=== PATIENT | female | born 1955 | race Caucasian/White ===

== ENCOUNTER 2022-06-04 18:33 | Inpatient (IN) | payer BC ==
[2022-06-04] MEDS ORDERED: DEXAMETHASONE SOD PHOSPHATE 10 MG/ML 1 ML VIAL IV STA (18:39)
[2022-06-04] MEDS ORDERED: ALBUTEROL NEBULIZED 2.5 MG/3 ML INHALATION STA (18:39)
[2022-06-04] MEDS ORDERED: IPRATROPIUM 0.5 MG/2.5 ML NEBU INHALATION STA (18:39)
[2022-06-04 18:53] LABS: Basophils # (A) 0.1 k/uL (0-0.2); Basophils % (A) 1 %; Eosinophils # (A) 0.5 k/uL (0-0.7); Eosinophils % (A) 8 %; HCT 31.4 % (34.0-46.0); HGB 10.2 gm/dL (11.4-16.0); Hypochromasia Slight; Lymphocytes # (A) 1.8 k/uL (1.0-4.8); Lymphocytes % (A) 25 %; MCHC 32.4 g/dL (31.0-37.0); MCV 98.6 fL (80.0-100.0); Macrocytosis Slight; Mean Platelet Volume 9.3; Monocytes # (A) 0.6 k/uL (0-1.0); Monocytes % (A) 8 %; Neutrophils # (A) 3.9 k/uL (1.3-7.7); Neutrophils % (A) 56 %; Platelet Count 261 k/uL (150-450); Poikilocytosis Slight; RBC 3.18 m/uL (3.80-5.40); RDW 15.5 % (11.5-15.5)
--- NOTE | 2022-06-04 18:53 | ED ---
General Adult HPI - General Chief complaint: Shortness of Breath Stated complaint: Choking Time Seen by Provider: 06/04/22 18:38 Source: patient Mode of arrival: EMS Limitations: physical limitation - History of Present Illness Initial comments: Dictation was produced using [employer] dictation software. please excuse any grammatical, word or spelling errors. Chief Complaint: 66-year-old female presents with dyspnea History of Present Illness: 66-year-old paraplegic. She is brought in by EMS from [facility]. Patient is a poor historian at this time due to medical history. EMS reports that patient was witnessed to have a perhaps choking episode while eating a hot dog. Patient then proceeded to vomit. She states that she felt like she was able to get everything out. EMS reports the patient was hypoxic as low as 70 percents. She was placed on positive airway ventilation with improvement of oxygen levels. According to EMS there was no nurse or care home staff to 80 in providing history of present illness. The ROS documented in this emergency department record has been reviewed and confirmed by me. Those systems with pertinent positive or negative responses have been documented in the HPI. All other systems are other negative and/or noncontributory. PHYSICAL EXAM: General Impression: Alert and oriented, mildly dyspneic, c-collar in place HEENT: Normocephalic atraumatic, extra-ocular movements intact, pupils equal and reactive to light bilaterally, mucous membranes moist. Cardiovascular: Heart regular rate and rhythm Chest: Mild retractions, diffuse wheezing Abdomen: abdomen soft, non-tender Musculoskeletal: Pulses present and equal in all extremities, contractures to the extremities Motor: No purposeful movements of the extremities Neurological: CN II-XII grossly intact Skin: Intact with no visualized rashes ED course: 66-year-old female presents to the emergency department for acute dyspnea. Patient is diffuse lung wheezing. Chest without adventitious reviewed. Patient allegedly on IV cefepime to treat osteomyelitis of the vertebral. More history was obtained from patient's . reports that 2 months ago she had suffered complications from spine surgery that caused her to be paraplegic. also reports that patient's blood pressure is normally on the low side. He does report being with her around the time of the onset of her breathing issues. He also reports the patient has been seemingly more congested than usual. Vital signs upon arrival shows heart of 110, blood pressure 85/60, 94% on nonrebreather. reports the patient does have extensive pulmonary history including COPD. Patient given breathing treatment and Decadron. Laboratory evaluation obtained. CBC unremarkable. Coag panel is negative. Metabolic panel does show non-gap acidosis. Elevated renal markers. His unclear what's patient's baseline however she did have some labs performed late last month that was not as elevated. There is suspicion of acute kidney injury. Chest x-ray shows no obvious infiltrate. Patient reevaluated at 7:00 and found to be stable medical condition. Considering patient's comorbidities and initial presentation believe patient would and if it from medical monitoring and pulmonology evaluation. - Related Data Allergies Allergy/AdvReac Type Severity Reaction Status Date / Time diazepam [From Valium] Allergy Intermediate Rash/Hives Verified 06/04/22 18:53 morphine Allergy Intermediate Rash/Hives Verified 06/04/22 18:53 phenytoin [From Dilantin] Allergy Intermediate Rash/Hives Verified 06/04/22 18:53 Review of Systems ROS Statement: Those systems with pertinent positive or pertinent negative responses have been documented in the HPI. ROS Other: All systems not noted in ROS Statement are negative. Past Medical History Past Medical History: Coronary Artery Disease (CAD), COPD, CVA/TIA, Diabetes Mellitus, Hypertension, Pulmonary Embolus (PE) Additional Past Medical History / Comment(s): depression. quadriplegia History of Any Multi-Drug Resistant Organisms: None Reported Past Psychological History: Anxiety, Depression Past Alcohol Use History: None Reported Past Drug Use History: None Reported General Exam Limitations: physical limitation Course Vital Signs 06/04/22 06/04/22 18:38 18:40 Temperature 97.5 F L Pulse Rate 110 H 107 H Respiratory 24 Rate Blood Pressure 85/60 O2 Sat by Pulse 94 L Oximetry Medical Decision Making - Lab Data Result diagrams: 06/04/22 18:39 06/04/22 18:30 Lab Results 06/04/22 06/04/22 06/04/22 Range/Units 18:30 18:30 18:30 WBC (3.8-10.6) k/uL RBC (3.80-5.40) m/uL Hgb (11.4-16.0) gm/dL Hct (34.0-46.0) % MCV (80.0-100.0) fL MCH (25.0-35.0) pg MCHC (31.0-37.0) g/dL RDW (11.5-15.5) % Plt Count (150-450) k/uL MPV Neutrophils % % Lymphocytes % % Monocytes % % Eosinophils % % Basophils % % Neutrophils # (1.3-7.7) k/uL Lymphocytes # (1.0-4.8) k/uL Monocytes # (0-1.0) k/uL Eosinophils # (0-0.7) k/uL Basophils # (0-0.2) k/uL Hypochromasia Poikilocytosis Macrocytosis PT 10.2 (9.0-12.0) sec INR 0.9 (<1.2) APTT 22.9 (22.0-30.0) sec Sodium 134 L (137-145) mmol/L Potassium 3.9 (3.5-5.1) mmol/L Chloride 106 (98-107) mmol/L Carbon Dioxide 15 L (22-30) mmol/L Anion Gap 13 mmol/L BUN 96 H (7-17) mg/dL Creatinine 3.28 H (0.52-1.04) mg/dL Est GFR (CKD-EPI)AfAm 16 (>60 ml/min/1.73 sqM) Est GFR (CKD-EPI)NonAf 14 (>60 ml/min/1.73 sqM) Glucose 120 H (74-99) mg/dL Plasma Lactic Acid Dimas <0.5 L (0.7-2.0) mmol/L Calcium 9.1 (8.4-10.2) mg/dL Magnesium 2.2 (1.6-2.3) mg/dL Total Bilirubin 0.9 (0.2-1.3) mg/dL AST 15 (14-36) U/L ALT 14 (4-34) U/L Alkaline Phosphatase 115 (38-126) U/L Troponin I (0.000-0.034) ng/mL NT-Pro-B Natriuret Pep pg/mL Total Protein 6.1 L (6.3-8.2) g/dL Albumin 3.4 L (3.5-5.0) g/dL 06/04/22 06/04/22 06/04/22 Range/Units 18:30 18:30 18:39 WBC 7.0 (3.8-10.6) k/uL RBC 3.18 L (3.80-5.40) m/uL Hgb 10.2 L (11.4-16.0) gm/dL Hct 31.4 L (34.0-46.0) % MCV 98.6 (80.0-100.0) fL MCH 32.0 (25.0-35.0) pg MCHC 32.4 (31.0-37.0) g/dL RDW 15.5 (11.5-15.5) % Plt Count 261 (150-450) k/uL MPV 9.3 Neutrophils % 56 % Lymphocytes % 25 % Monocytes % 8 % Eosinophils % 8 % Basophils % 1 % Neutrophils # 3.9 (1.3-7.7) k/uL Lymphocytes # 1.8 (1.0-4.8) k/uL Monocytes # 0.6 (0-1.0) k/uL Eosinophils # 0.5 (0-0.7) k/uL Basophils # 0.1 (0-0.2) k/uL Hypochromasia Slight Poikilocytosis Slight Macrocytosis Slight PT (9.0-12.0) sec INR (<1.2) APTT (22.0-30.0) sec Sodium (137-145) mmol/L Potassium (3.5-5.1) mmol/L Chloride (98-107) mmol/L Carbon Dioxide (22-30) mmol/L Anion Gap mmol/L BUN (7-17) mg/dL Creatinine (0.52-1.04) mg/dL Est GFR (CKD-EPI)AfAm (>60 ml/min/1.73 sqM) Est GFR (CKD-EPI)NonAf (>60 ml/min/1.73 sqM) Glucose (74-99) mg/dL Plasma Lactic Acid Dimas (0.7-2.0) mmol/L Calcium (8.4-10.2) mg/dL Magnesium (1.6-2.3) mg/dL Total Bilirubin (0.2-1.3) mg/dL AST (14-36) U/L ALT (4-34) U/L Alkaline Phosphatase (38-126) U/L Troponin I <0.012 (0.000-0.034) ng/mL NT-Pro-B Natriuret Pep 890 pg/mL Total Protein (6.3-8.2) g/dL Albumin (3.5-5.0) g/dL Critical Care Time Critical Care Time: Yes Total Critical Care Time: 33 Disposition Clinical Impression: Bronchospasm, acute Disposition: ADMITTED IP TO THIS HOSP Condition: Fair Referrals: None,Stated [Primary Care Provider] - 1-2 days Decision Time: 21:03
[2022-06-04 19:03] LABS: INR 0.9 (<1.2); Partial Thromboplastin Time 22.9 sec (22.0-30.0); Prothrombin Time 10.2 sec (9.0-12.0)
[2022-06-04 19:04] LABS: Albumin 3.4 g/dL (3.5-5.0); Calcium 9.1 mg/dL (8.4-10.2); Magnesium 2.2 mg/dL (1.6-2.3); Potassium 3.9 mmol/L (3.5-5.1); Total Bilirubin 0.9 mg/dL (0.2-1.3); Total Protein 6.1 g/dL (6.3-8.2)
[2022-06-04] MEDS ORDERED: SODIUM CHLORIDE 0.9% 1,000 ML IV STA (19:14)
--- NOTE | 2022-06-04 19:28 | XR ---
EXAMINATION TYPE: XR chest 1V portable DATE OF EXAM: 06/04/2022 COMPARISON: NONE HISTORY: Short of breath TECHNIQUE: Single view FINDINGS: There is some mild linear density in the lower lung yi. No heart failure. Heart size is normal. Thoracic aorta is atheromatous. IMPRESSION: Mild subsegmental atelectasis. No heart failure. Normal heart.
[2022-06-04] MEDS ORDERED: NALOXONE 0.4 MG/ML 1 ML VIAL IVP PRN (21:04)
[2022-06-05 06:18] LABS: Glucose,Whole Blood 197 mg/dL (70-110)
[2022-06-05] MEDS: INSULIN ASPART (NovoLOG) 100 UNIT/ML VIAL SQ SCH ×4 (06:41→20:53)
[2022-06-05] MEDS: IPRATROPIUM-ALBUTEROL 3 ML NEB INHALATION SCH ×4 (08:48→19:55)
[2022-06-05] MEDS ORDERED: ACETAMINOPHEN TAB 325 MG TAB PO PRN (11:33)
[2022-06-05] MEDS ORDERED: LORazepam 0.5 MG TAB PO PRN (11:33)
--- NOTE | 2022-06-05 11:43 | P.HPIM ---
History of Present Illness Patient was 66-year-old female was sent in from [facility] after she choked on a hot dog. Patient has a PEG tube and she doesn't use any patient is paraplegic after a cervical surgery patient has a Reynaga catheter does have a neck collar correction resident. Patient gave baseline creatinine appears to be around 2.5 present creatinine is 2.28 patient has dry mucous membranes appears to be severely dehydrated. Patient is tachycardic as well. Chest x-ray did not show any pneumonia or aspiration. Patient was bronchospastic which improved at this time. As per the nursing staff patient was unable to tolerate the thickened liquids will try honey thickened liquids. Speech therapy will be consulted. REVIEW OF SYSTEMS: CONSTITUTIONAL: No fever, no malaise, no fatigue. HEENT: No recent visual problems or hearing problems. Denied any sore throat. CARDIOVASCULAR: No chest pain, orthopnea, PND, no palpitations, no syncope. PULMONARY: No shortness of breath, no cough, no hemoptysis. GASTROINTESTINAL: No diarrhea, no nausea, no vomiting, no abdominal pain. NEUROLOGICAL: No headaches, no weakness, no numbness. HEMATOLOGICAL: Denies any bleeding or petechiae. GENITOURINARY: Denies any burning micturition, frequency, or urgency. MUSCULOSKELETAL/RHEUMATOLOGICAL: Denies any joint pain, swelling, or any muscle pain. ENDOCRINE: Denies any polyuria or polydipsia. The rest of the 14-point review of systems is negative. PHYSICAL EXAMINATION: GENERAL: The patient is alert and oriented x3, not in any acute distress. Well developed, well nourished. HEENT: Pupils are round and equally reacting to light. EOMI. No scleral icterus. No conjunctival pallor. Normocephalic, atraumatic. No pharyngeal erythema. No thyromegaly. CARDIOVASCULAR: S1 and S2 present. No murmurs, rubs, or gallops. PULMONARY: Mild rhonchi bilaterally ABDOMEN: Soft, nontender, nondistended, normoactive bowel sounds. No palpable o rganomegaly. MUSCULOSKELETAL: No joint swelling or deformity. EXTREMITIES: No cyanosis, clubbing, or pedal edema. NEUROLOGICAL: Paraplegic be depressed tearful SKIN: No rashes. Assessment and plan -Choking: Probably some with oropharyngeal dysphagia, we will attempt another bedside swallow with honey thickened liquids. Patient is quite a bit dehydrated. Speech therapy will be consulted. There is no evidence of aspiration at this time -Acute renal failure prerenal azotemia with dehydration intravascular depletion patient will continued on IV fluids were decreased IV fluids 100 mL per hour monitor kidney function -chronic kidney disease stage IV with baseline creatinine of around 2.5, probably secondary to diabetic nephropathy COPD without any exacerbation -Type 2 diabetes mellitus continue with home regimen titrate the blood sugars depending on her insulin requirements patient is not being eating well because of his dysphagia issues because of which will discontinue sliding scale insulin -Mild sinus tachycardia secondary to dehydration -Acute hypoxemia: Secondary to bronchospasm from choking -Hypertension -History of PE in the past: Presently not on any anticoagulation but is on DVT prophylactic dose of subcutaneous heparin -Diabetic peripheral neuropathy for which patient in Neurontin dose of which will be cut down 200 twice a day constant her poor renal function -Depression -Hyperlipidemia DVT prophylaxis: Subcutaneous heparin Past Medical History Past Medical History: Coronary Artery Disease (CAD), COPD, CVA/TIA, Diabetes Mellitus, Hypertension, Pulmonary Embolus (PE) Additional Past Medical History / Comment(s): depression. quadriplegia History of Any Multi-Drug Resistant Organisms: None Reported Past Surgical History: Unable to Obtain Past Anesthesia/Blood Transfusion Reactions: Unable to Obtain Past Psychological History: Anxiety, Depression Smoking Status: Unknown if ever smoked Past Alcohol Use History: None Reported Past Drug Use History: None Reported Medications and Allergies Home Medications Medication Instructions Recorded Confirmed Type 0.9 % Sodium Chloride [Sodium 10 ml IV TID@0500,1300,2100 06/04/22 06/04/22 History Chloride Flush] Acetaminophen [Acetaminophen ER] 650 mg PO Q4H PRN 06/04/22 06/04/22 History Albuterol Nebulized [Ventolin 2.5 mg INHALATION RT-Q6H PRN 06/04/22 06/04/22 History Nebulized] Amitriptyline HCl [Elavil] 75 mg PO HS 06/04/22 06/04/22 History Atorvastatin [Lipitor] 20 mg PO HS 06/04/22 06/04/22 History Biotene Dry Mouth Liquid 15 ml PO Q4H 06/04/22 06/04/22 History Chlorhexidine Gluconate [Peridex] 15 ml PO BID@0800,1600 06/04/22 06/04/22 History Citalopram Hydrobromide 20 mg PO DAILY 06/04/22 06/04/22 History [Citalopram HBr] Docusate Sodium [Dok] 100 mg PO BID 06/04/22 06/04/22 History Epoetin Galdino-Epbx [Retacrit] 3,000 units SQ MOWEFR 06/04/22 06/04/22 History Famotidine 20 mg PO HS 06/04/22 06/04/22 History Gabapentin [Neurontin] 200 mg PO BID@0800,2000 06/04/22 06/04/22 History Glycopyrrolate 1 mg PO BID 06/04/22 06/04/22 History Heparin Sodium,Porcine [Heparin 5,000 unit SQ Q12HR 06/04/22 06/04/22 History Sodium] Insulin Lispro [Admelog] See Protocol SQ ACHS 06/04/22 06/04/22 History LORazepam [Ativan] 0.5 mg PO TID@0500,1300,2100 06/04/22 06/04/22 History Lacosamide [Vimpat] 150 mg PO BID@0800,1600 06/04/22 06/04/22 History Montelukast Sodium [Singulair] 10 mg PO HS 06/04/22 06/04/22 History Pro-Stat Liquid 30 ml PO DAILY 06/04/22 06/04/22 History methocarbamoL [Methocarbamol] 750 mg PO TID@0500,1300,2100 06/04/22 06/04/22 History polyethylene glycoL 3350 [Miralax] 17 gm PO DAILY 06/04/22 06/04/22 History Allergies Allergy/AdvReac Type Severity Reaction Status Date / Time diazepam [From Valium] Allergy Intermediate Rash/Hives Verified 06/04/22 21:12 morphine Allergy Intermediate Rash/Hives Verified 06/04/22 21:12 phenytoin [From Dilantin] Allergy Intermediate Rash/Hives Verified 06/04/22 21:12 Physical Exam Vitals: Vital Signs Temp Pulse Pulse Resp BP BP Pulse Ox 06/05/22 09:00 100 06/05/22 08:48 104 H 06/05/22 05:08 98.2 F 101 H 20 113/69 94 L 06/05/22 04:00 98.2 F 101 H 18 113/69 94 L 06/05/22 01:00 106 H 18 128/78 95 06/04/22 21:50 114 H 20 93/79 95 06/04/22 21:23 116 H 80/62 97 06/04/22 18:40 107 H 06/04/22 18:38 97.5 F L 110 H 24 85/60 94 L Intake and Output 06/04/22 06/05/22 06/05/22 22:59 06:59 14:59 Output Total 475 200 Balance -475 -200 Output: Urine 475 200 Other: Weight 92.986 kg 92.986 kg Results CBC & Chem 7: 06/04/22 18:39 06/05/22 09:25 Labs: Abnormal Lab Results - Last 24 Hours (Table) 06/04/22 06/04/22 06/04/22 Range/Units 18:30 18:30 18:39 RBC 3.18 L (3.80-5.40) m/uL Hgb 10.2 L (11.4-16.0) gm/dL Hct 31.4 L (34.0-46.0) % Sodium 134 L (137-145) mmol/L Carbon Dioxide 15 L (22-30) mmol/L BUN 96 H (7-17) mg/dL Creatinine 3.28 H (0.52-1.04) mg/dL Glucose 120 H (74-99) mg/dL POC Glucose (mg/dL) (70-110) mg/dL Plasma Lactic Acid Dimas <0.5 L (0.7-2.0) mmol/L Total Protein 6.1 L (6.3-8.2) g/dL Albumin 3.4 L (3.5-5.0) g/dL 06/05/22 Range/Units 06:16 RBC (3.80-5.40) m/uL Hgb (11.4-16.0) gm/dL Hct (34.0-46.0) % Sodium (137-145) mmol/L Carbon Dioxide (22-30) mmol/L BUN (7-17) mg/dL Creatinine (0.52-1.04) mg/dL Glucose (74-99) mg/dL POC Glucose (mg/dL) 197 H (70-110) mg/dL Plasma Lactic Acid Dimas (0.7-2.0) mmol/L Total Protein (6.3-8.2) g/dL Albumin (3.5-5.0) g/dL Thrombosis Risk Factor Assmnt - Choose All That Apply Other Risk Factors: Yes Each Risk Factor Represents 2 Points: Age 61-74 years Each Risk Factor Represents 3 Points: History of DVT/PE Thrombosis Risk Factor Assessment Total Risk Factor Score: 5 Thrombosis Risk Factor Assessment Level: High Risk
[2022-06-05 11:57] LABS: Glucose,Whole Blood 139 mg/dL (70-110)
[2022-06-05] MEDS ORDERED: INSULIN LISPRO (For Pump) 100 UNIT/ML VIAL SQ-PUMP SCH (12:30)
--- NOTE | 2022-06-05 12:56 | P.CNPUL ---
History of Present Illness Consult date: 06/05/22 Requesting physician: Avni Carlos Reason for consult: dyspnea, cough, hypoxemia, abnormal CXR/CT Chief complaint: Food aspiration. History of present illness: Pulmonary consult dated 06/05/2022. 66-year-old female with a history of spinal surgery and subsequent paraplegia, who [facility]. The patient apparently was eating a hot dog, and chill, and may be aspirated portion of the hot dog, and developed some respiratory distress, bronchospasm, and difficulty breathing, and was brought to the emergency room to be evaluated. She apparently was quite bronchospastic when she was initially evaluated in the emergency department. The patient does have a PEG tube. Apparently the patient had spinal surgery a couple months back, is currently wearing a cervical collar. The patient was brought to the emergency room by EMS. Currently she is on 5 L nasal cannula. Her heart rate 200. Blood pressure is stable. White count 7, heme him 10.2, hematocrit 31.4, with a normal platelet count. Sodium 134, potassium 3.9, chlorides 106, CO2 15, anion gap 13, BUN 96, with a creatinine of 3.28. Chest x-ray showed just some mild subsegmental atelectasis. She is in no distress at the time of this consultation. Review of Systems REVIEW OF SYSTEMS: CONSTITUTIONAL: [Negative.] NEUROLOGIC: [ Negative.] HEENT: [ Negative.] CARDIAC: [Negative.] PULMONARY: Shortness of breath, bronchospasm. GI: [Negative.] : [Negative.] RHEUMATOLOGIC: [ Negative.] IMMUNOLOGIC: [ Negative.] ENDOCRINE: [Negative. ] DERMATOLOGIC: [Negative.] Past Medical History Past Medical History: Coronary Artery Disease (CAD), COPD, CVA/TIA, Diabetes Mellitus, Hypertension, Pulmonary Embolus (PE) Additional Past Medical History / Comment(s): depression. quadriplegia History of Any Multi-Drug Resistant Organisms: None Reported Past Surgical History: Unable to Obtain Past Anesthesia/Blood Transfusion Reactions: Unable to Obtain Past Psychological History: Anxiety, Depression Smoking Status: Unknown if ever smoked Past Alcohol Use History: None Reported Past Drug Use History: None Reported Medications and Allergies Home Medications Medication Instructions Recorded Confirmed Type 0.9 % Sodium Chloride [Sodium 10 ml IV TID@0500,1300,2100 06/04/22 06/04/22 History Chloride Flush] Acetaminophen [Acetaminophen ER] 650 mg PO Q4H PRN 06/04/22 06/04/22 History Albuterol Nebulized [Ventolin 2.5 mg INHALATION RT-Q6H PRN 06/04/22 06/04/22 History Nebulized] Amitriptyline HCl [Elavil] 75 mg PO HS 06/04/22 06/04/22 History Atorvastatin [Lipitor] 20 mg PO HS 06/04/22 06/04/22 History Biotene Dry Mouth Liquid 15 ml PO Q4H 06/04/22 06/04/22 History Chlorhexidine Gluconate [Peridex] 15 ml PO BID@0800,1600 06/04/22 06/04/22 History Citalopram Hydrobromide 20 mg PO DAILY 06/04/22 06/04/22 History [Citalopram HBr] Docusate Sodium [Dok] 100 mg PO BID 06/04/22 06/04/22 History Epoetin Galdino-Epbx [Retacrit] 3,000 units SQ MOWEFR 06/04/22 06/04/22 History Famotidine 20 mg PO HS 06/04/22 06/04/22 History Gabapentin [Neurontin] 200 mg PO BID@0800,2000 06/04/22 06/04/22 History Glycopyrrolate 1 mg PO BID 06/04/22 06/04/22 History Heparin Sodium,Porcine [Heparin 5,000 unit SQ Q12HR 06/04/22 06/04/22 History Sodium] Insulin Lispro [Admelog] See Protocol SQ ACHS 06/04/22 06/04/22 History LORazepam [Ativan] 0.5 mg PO TID@0500,1300,2100 06/04/22 06/04/22 History Lacosamide [Vimpat] 150 mg PO BID@0800,1600 06/04/22 06/04/22 History Montelukast Sodium [Singulair] 10 mg PO HS 06/04/22 06/04/22 History Pro-Stat Liquid 30 ml PO DAILY 06/04/22 06/04/22 History methocarbamoL [Methocarbamol] 750 mg PO TID@0500,1300,2100 06/04/22 06/04/22 History polyethylene glycoL 3350 [Miralax] 17 gm PO DAILY 06/04/22 06/04/22 History Allergies Allergy/AdvReac Type Severity Reaction Status Date / Time diazepam [From Valium] Allergy Intermediate Rash/Hives Verified 06/04/22 21:12 morphine Allergy Intermediate Rash/Hives Verified 06/04/22 21:12 phenytoin [From Dilantin] Allergy Intermediate Rash/Hives Verified 06/04/22 21:12 Physical Exam Osteopathic Statement: *. No significant issues noted on an osteopathic structural exam other than those noted in the History and Physical/Consult. Vitals: Vital Signs Temp Pulse Pulse Resp BP BP Pulse Ox 06/05/22 12:08 100 06/05/22 09:00 100 06/05/22 08:48 104 H 06/05/22 05:08 98.2 F 101 H 20 113/69 94 L 06/05/22 04:00 98.2 F 101 H 18 113/69 94 L 06/05/22 01:00 106 H 18 128/78 95 06/04/22 21:50 114 H 20 93/79 95 06/04/22 21:23 116 H 80/62 97 06/04/22 18:40 107 H 06/04/22 18:38 97.5 F L 110 H 24 85/60 94 L Intake and Output 06/04/22 06/05/22 06/05/22 22:59 06:59 14:59 Output Total 475 200 Balance -475 -200 Output: Urine 475 200 Other: Weight 92.986 kg 92.986 kg No acute distress, oriented 3. Patient is a poor historian. He is wearing a cervical collar. She is on 5 L nasal cannula. HEENT examination is grossly unremarkable. Neck supple. Full range of motion. No adenopathy thyromegaly or neck vein distention. The patient does have a cervical collar in place. Cardiovascular examination reveals regular rhythm rate. S1-S2 normal. No S3 or S4. No discernible murmur noted. Heart rate 100 bpm. Lungs reveal mostly clear breath sounds. Scattered rhonchi. No wheezes or crackles. Breath sounds equal bilaterally. Saturations mid 90s. Abdomen soft bowel sounds are heard. No masses or tenderness. Extremities are intact. No cyanosis clubbing or edema. Skin is without rash or lesion. Neurologic examination is difficult to assess. Results - Laboratory Findings CBC and BMP: 06/04/22 18:39 06/05/22 09:25 PT/INR, D-dimer PT 10.2 sec (9.0-12.0) 06/04/22 18:30 INR 0.9 (<1.2) 06/04/22 18:30 Abnormal lab findings: Abnormal Labs 06/04/22 06/04/22 06/04/22 18:30 18:30 18:39 RBC 3.18 L Hgb 10.2 L Hct 31.4 L Sodium 134 L Carbon Dioxide 15 L BUN 96 H Creatinine 3.28 H Glucose 120 H POC Glucose (mg/dL) Plasma Lactic Acid Dimas <0.5 L Total Protein 6.1 L Albumin 3.4 L 06/05/22 06/05/22 06:16 11:55 RBC Hgb Hct Sodium Carbon Dioxide BUN Creatinine Glucose POC Glucose (mg/dL) 197 H 139 H Plasma Lactic Acid Dimas Total Protein Albumin - Diagnostic Findings Chest x-ray: image reviewed Assessment and Plan Assessment: Shortness of breath/bronchospasm, after choking on a hot dog. Chronic hypoxemic respiratory failure, [facility] 4 L [facility]. Recent spinal surgery, resulting in paraplegia according to the history. History of CAD. History of COPD. History of CVA. History of diabetes mellitus. History of hypertension. History of pulmonary embolism. History of anxiety/depression. Plan: Plan dated 06/05/2022. The patient appears to be very stable. She was wearing 4 L of oxygen [facility] the [facility]. She's currently on 5 L. She is not bronchospastic. Her lungs are relatively clear save for a few scattered rhonchi. Nothing to do at this point from the pulmonary standpoint. The chest x-ray is mostly clear save for some minimal atelectasis. We will see the patient moving forward only as needed. Time with Patient: Greater than 30
[2022-06-05] MEDS: DRY MOUTH SPRAY 44.3 SPRAY/44.3 ML SPRAY MUCOUS MEM SCH ×3 (16:08→20:54)
[2022-06-05 16:54] LABS: Glucose,Whole Blood 163 mg/dL (70-110)
[2022-06-05] MEDS: LACOSAMIDE 150 MG TABLET PO SCH (17:21)
[2022-06-05] MEDS: CHLORHEXIDINE GLUCONATE 15 ML CUP MUCOUS MEM SCH (17:21)
[2022-06-05] MEDS: methocarbamoL 750 MG TAB PO SCH ×2 (17:21→20:57)
[2022-06-05 20:35] LABS: Glucose,Whole Blood 151 mg/dL (70-110)
[2022-06-05] MEDS: SODIUM CHLORIDE 0.9% 1,000 ML IV SCH (20:48)
[2022-06-05] MEDS: HEPARIN SODIUM,PORCINE/PF 5,000 UNIT/0.5 ML SYRINGE SQ SCH (20:54)
[2022-06-05] MEDS: DOCUSATE 100 MG CAP PO SCH (20:54)
[2022-06-05] MEDS: ATORVASTATIN 20 MG TAB PO SCH (20:54)
[2022-06-05] MEDS: FAMOTIDINE 20 MG TAB PO SCH (20:54)
[2022-06-05] MEDS: AMITRIPTYLINE HCL 25 MG TAB PO SCH (20:54)
[2022-06-05] MEDS: GABAPENTIN 100 MG CAP PO SCH (20:54)
[2022-06-06] MEDS: DRY MOUTH SPRAY 44.3 SPRAY/44.3 ML SPRAY MUCOUS MEM SCH ×7 (00:13→23:00)
[2022-06-06] MEDS: SODIUM CHLORIDE 0.9% 1,000 ML IV SCH ×2 (00:14→09:26)
[2022-06-06] MEDS: methocarbamoL 750 MG TAB PO SCH ×3 (04:25→21:57)
[2022-06-06 06:09] LABS: Glucose,Whole Blood 122 mg/dL (70-110)
[2022-06-06] MEDS: INSULIN ASPART (NovoLOG) 100 UNIT/ML VIAL SQ SCH ×4 (06:10→21:58)
[2022-06-06] MEDS: CHLORHEXIDINE GLUCONATE 15 ML CUP MUCOUS MEM SCH ×2 (08:37→16:56)
[2022-06-06] MEDS: polyethylene glycoL 3350 17 GM POWD.PACK PO SCH (08:37)
[2022-06-06] MEDS: DOCUSATE 100 MG CAP PO SCH ×2 (08:37→20:35)
[2022-06-06] MEDS: IPRATROPIUM-ALBUTEROL 3 ML NEB INHALATION SCH ×5 (08:42→19:38)
[2022-06-06] MEDS ORDERED: PRO STAT PO SCH (09:00)
--- NOTE | 2022-06-06 09:03 | P.NPCON ---
History of Present Illness - Reason for Consult acute renal failure - History of Present Illness patient is a 66-year-old female who has history of paraplegia after cervical surgery. [facility] as he shouldn't had choked while eating. She had been eating a hotdog. Patient has a PEG tube. She is not able to give me a detailed history. SERUM CREATININE WAS 3.2 ON 06/04/2022. previous creatinine of 2.2 mg/dL on 05/21/2022 and 2.9 on 05/04/2021 Patient has an indwelling Reynaga catheter with urine output documented at about a 25 mL for 24 hours Blood pressure has been on the lower side with systolic around 105 mmHg Past Medical History Past Medical History: Coronary Artery Disease (CAD), COPD, CVA/TIA, Diabetes Mellitus, Hypertension, Pulmonary Embolus (PE) Additional Past Medical History / Comment(s): depression. quadriplegia History of Any Multi-Drug Resistant Organisms: None Reported Past Surgical History: Unable to Obtain Past Anesthesia/Blood Transfusion Reactions: Unable to Obtain Past Psychological History: Anxiety, Depression Smoking Status: Unknown if ever smoked Past Alcohol Use History: None Reported Past Drug Use History: None Reported Medications and Allergies Home Medications Medication Instructions Recorded Confirmed Type 0.9 % Sodium Chloride [Sodium 10 ml IV TID@0500,1300,2100 06/04/22 06/04/22 History Chloride Flush] Acetaminophen [Acetaminophen ER] 650 mg PO Q4H PRN 06/04/22 06/04/22 History Albuterol Nebulized [Ventolin 2.5 mg INHALATION RT-Q6H PRN 06/04/22 06/04/22 History Nebulized] Amitriptyline HCl [Elavil] 75 mg PO HS 06/04/22 06/04/22 History Atorvastatin [Lipitor] 20 mg PO HS 06/04/22 06/04/22 History Biotene Dry Mouth Liquid 15 ml PO Q4H 06/04/22 06/04/22 History Chlorhexidine Gluconate [Peridex] 15 ml PO BID@0800,1600 06/04/22 06/04/22 History Citalopram Hydrobromide 20 mg PO DAILY 06/04/22 06/04/22 History [Citalopram HBr] Docusate Sodium [Dok] 100 mg PO BID 06/04/22 06/04/22 History Epoetin Galdino-Epbx [Retacrit] 3,000 units SQ MOWEFR 06/04/22 06/04/22 History Famotidine 20 mg PO HS 06/04/22 06/04/22 History Gabapentin [Neurontin] 200 mg PO BID@0800,2000 06/04/22 06/04/22 History Glycopyrrolate 1 mg PO BID 06/04/22 06/04/22 History Heparin Sodium,Porcine [Heparin 5,000 unit SQ Q12HR 06/04/22 06/04/22 History Sodium] Insulin Lispro [Admelog] See Protocol SQ ACHS 06/04/22 06/04/22 History LORazepam [Ativan] 0.5 mg PO TID@0500,1300,2100 06/04/22 06/04/22 History Lacosamide [Vimpat] 150 mg PO BID@0800,1600 06/04/22 06/04/22 History Montelukast Sodium [Singulair] 10 mg PO HS 06/04/22 06/04/22 History Pro-Stat Liquid 30 ml PO DAILY 06/04/22 06/04/22 History methocarbamoL [Methocarbamol] 750 mg PO TID@0500,1300,2100 06/04/22 06/04/22 History polyethylene glycoL 3350 [Miralax] 17 gm PO DAILY 06/04/22 06/04/22 History Allergies Allergy/AdvReac Type Severity Reaction Status Date / Time diazepam [From Valium] Allergy Intermediate Rash/Hives Verified 06/04/22 21:12 morphine Allergy Intermediate Rash/Hives Verified 06/04/22 21:12 phenytoin [From Dilantin] Allergy Intermediate Rash/Hives Verified 06/04/22 21:12 Physical Exam Vitals: Vital Signs Temp Pulse Pulse Resp BP Pulse Ox FiO2 06/06/22 08:42 92 06/06/22 04:00 97.6 F 83 20 110/70 95 06/06/22 02:00 93 20 06/06/22 00:00 98.1 F 93 20 118/72 94 L 06/05/22 20:13 100 06/05/22 20:00 98.4 F 101 H 18 105/62 97 06/05/22 19:55 99 97 40 06/05/22 16:00 106 H 18 105/62 95 06/05/22 15:53 108 H 06/05/22 15:42 100 06/05/22 14:00 105 H 20 06/05/22 12:18 100 06/05/22 12:08 100 06/05/22 12:00 105 H 20 105/52 95 06/05/22 09:00 100 06/05/22 08:48 104 H Intake and Output 06/05/22 06/06/22 06/06/22 22:59 06:59 14:59 Intake Total 540 Output Total 250 375 Balance 290 -375 Intake: Oral 540 Output: Urine 250 375 Other: Voiding Method Indwelling Catheter Indwelling Catheter Weight 121.5 kg patient is awake, comfortable, no acute distress. Patient is in a cervical collar Examination of the heart S1 and S2 Examination lungs bilateral breath sounds are heard Abdomen is soft nontender Examination of the lower extremities shows trace edema. Patient does not move her legs. Results - Lab Results Most recent lab results Calcium 9.1 mg/dL (8.4-10.2) 06/04/22 18:30 Magnesium 2.2 mg/dL (1.6-2.3) 06/04/22 18:30 06/04/22 18:39 06/05/22 09:25 Assessment and Plan Assessment: 1. Acute kidney injury, ATN currently nonoliguric. Currently with indwelling Reynaga catheter. Check UA. Check ultrasound of the kidneys 2. Chronic kidney disease versus previous episode of acute kidney injury, NKF stage IV. 3. Chronic hypoxic respiratory failure maintained on 4 L nasal cannula 4. History of recent spinal surgery with resultant paraplegia 5. Dysphagia with history of recent choking. 6. Non-gap metabolic acidosis secondary to acute kidney injury Plan: continue IV fluids Change IV fluids to IV bicarb Check urine analysis Check ultrasound of the kidneys Avoid nephrotoxic agents. Repeat labs in a.m.
[2022-06-06] MEDS: CITALOPRAM HYDROBROMIDE 20 MG TAB PO SCH (09:27)
[2022-06-06] MEDS: GABAPENTIN 100 MG CAP PO SCH ×2 (09:27→20:35)
[2022-06-06] MEDS: LACOSAMIDE 150 MG TABLET PO SCH ×2 (09:28→16:55)
[2022-06-06] MEDS: HEPARIN SODIUM,PORCINE/PF 5,000 UNIT/0.5 ML SYRINGE SQ SCH ×2 (09:28→20:35)
[2022-06-06 09:54] LABS: Potassium 3.8 mmol/L (3.5-5.1)
--- NOTE | 2022-06-06 10:11 | US ---
EXAMINATION TYPE: US kidneys/renal and bladder DATE OF EXAM: 06/06/2022 COMPARISON: NONE CLINICAL HISTORY: alexandra. ALEXANDRA EXAM MEASUREMENTS: Right Kidney: 11.6 x 4.8 x 4.1 cm Left Kidney: 10.9 x 5.3 x 5.0 cm *technical limitations due to patient's body habitus, overlying bowel content, and patient's limited mobility Right Kidney: no evidence of hydronephrosis Left Kidney: no evidence of hydronephrosis Bladder: Reynaga Catheter There is no evidence for hydronephrosis at this point in time. No nephrolithiasis is seen. No lola s are identified. The urinary bladder is anechoic. Bilateral ureteral jets are seen. IMPRESSION: No evidence of obstructive uropathy.
[2022-06-06 11:33] LABS: Glucose,Whole Blood 150 mg/dL (70-110)
[2022-06-06] MEDS: DEXTROSE 5% IN WATER 1,000 ML with SODIUM BICARB (1 MEQ/ML) 150 ML IV SCH (12:31)
--- NOTE | 2022-06-06 13:59 | P.PN ---
Subjective Progress Note Date: 06/06/22 Patient was 66-year-old female was sent in from [facility] after she choked on a hot dog. Patient has a PEG tube and she doesn't use any patient is paraplegic after a cervical surgery patient has a Reynaga catheter does have a neck collar half-way resident. Patient gave baseline creatinine appears to be around 2.5 present creatinine is 2.28 patient has dry mucous membranes appears to be severely dehydrated. Patient is tachycardic as well. Chest x-ray did not show any pneumonia or aspiration. Patient was bronchospastic which improved at this time. As per the nursing staff patient was unable to tolerate the thickened liquids will try honey thickened liquids. Speech therapy will be consulted. 06/06/2022 Patient is seen in follow-up this morning it is asleep but arousable. Patient does continue with her chronic neck collar status post cervical surgery and patient is paraplegic and resides at [facility]. Patient was sent here and was found to have severe dehydration and bronchospasms after choking on a hot dog at the [facility] facility. Patient does have a PEG tube and will evaluate for possible tube feedings with consult dietitian. Nephrology following as well as kidney functions have worsened is currently a BUN of 110 with a creatinine of 3.77, sodium is 135 and potassium is 3.8. Patient is afebrile and vital signs stable and patient is maintained on 4 L via nasal cannula with an oxygen saturation of 95%. Ultrasound of the abdomen bladder has been ordered and pending at this time. Nephrology and Pulmonary is following as well. Patient is being placed on sodium bicarb drip and recommend repeat labs. IV fluids have been discontinued. Also awaiting speech therapy evaluation. Review of systems: Unable to obtain as patient is lethargic and just woke up All medications have been reviewed PHYSICAL EXAMINATION: GENERAL: The patient is alert and oriented x3, not in any acute distress. Lethargic, arousable Well developed, well nourished. HEENT: Pupils are round and equally reacting to light. EOMI. No scleral icterus. No conjunctival pallor. Normocephalic, atraumatic. No pharyngeal erythema. No thyromegaly. Cervical neck collar noted CARDIOVASCULAR: S1 and S2 present. No murmurs, rubs, or gallops. PULMONARY: Mild rhonchi bilaterally ABDOMEN: Soft, nontender, nondistended, normoactive bowel sounds. No palpable organomegaly. MUSCULOSKELETAL: No joint swelling or deformity. EXTREMITIES: No cyanosis, clubbing, or pedal edema. NEUROLOGICAL: Paraplegic Psychiatric: depressed, tearful SKIN: No rashes. Assessment: -Choking: Probably some with oropharyngeal dysphagia, currently awaiting speech evaluation along with dietary consult as patient does have a PEG tube. No sign of aspiration at this time. Viky following -Acute renal failure prerenal azotemia with dehydration intravascular depletion. Nephrology following as kidney functions are worsening and patient being placed on bicarb drip and recommend repeat labs -chronic kidney disease stage IV with baseline creatinine of around 2.5, probably secondary to diabetic nephropathy -COPD without any exacerbation -Type 2 diabetes mellitus continue with home regimen, recommend continue monito ring Accu-Cheks and if sugars become more elevated we will resume sliding scale -Mild sinus tachycardia secondary to dehydration, improved -Acute hypoxemia: Secondary to bronchospasm from choking -Hypertension -History of PE in the past: Presently not on any anticoagulation but is on DVT prophylactic dose of subcutaneous heparin -Diabetic peripheral neuropathy for which patient in Neurontin dose will be titrated down given her poor renal function -Depression -Hyperlipidemia -DVT prophylaxis: Subcutaneous heparin Plan: Recommend continue with current medications and management with nephrology and pulmonary following closely. Patient is being started on sodium bicarb drip as kidney functions continue to worsen and IV fluids have been discontinued. Patient is continued on 4 L via nasal cannula and wean FiO2 as tolerated. Recommend repeat labs in a.m. Awaiting speech eval to assess swallow and patient also has a PEG tube and will consult dietary if patient continuing to have swallowing difficulties, recommend dysphagia 3 chopped diet with nectar thickened liquids and maintain aspiration precautions Recommend to continue monitoring blood sugars before meals and at bedtime and if becoming more elevated we will resume sliding scale and continue with current home medication for now. Renal ultrasound ordered and pending at this time Prognosis is guarded Plan is for patient to return to [facility] where she resides when stabilized and discharged The impression and plan of care has been dictated by Emilie Chacko, Nurse Practitioner as directed. Dr. Ashley MD I have performed a history and examination and MDM of this patient, discussed the same with the dictator, and agree with the dictator's assessment and plan as written ,documented as a scribe. Based on total visit time, I have performed more than 50% of the visit. Objective - Vital Signs Vital signs: Vital Signs Temp 97.6 F 06/06/22 04:00 Pulse 96 06/06/22 09:07 Resp 20 06/06/22 04:00 BP 110/70 06/06/22 04:00 Pulse Ox 95 06/06/22 04:00 FiO2 40 06/05/22 19:55 Intake & Output 06/05/22 06/06/22 06/06/22 18:59 06:59 18:59 Intake Total 540 Output Total 450 375 Balance -450 165 Weight 121.5 kg Intake: Oral 540 Output: Urine 450 375 Other: Voiding Method Indwelling Catheter - Labs CBC & Chem 7: 06/04/22 18:39 06/06/22 09:09 Labs: Abnormal Lab Results - Last 24 Hours (Table) 06/05/22 06/05/22 06/05/22 Range/Units 11:55 16:52 20:30 POC Glucose (mg/dL) 139 H 163 H 151 H (70-110) mg/dL 06/06/22 Range/Units 06:07 POC Glucose (mg/dL) 122 H (70-110) mg/dL
[2022-06-06 16:48] LABS: Glucose,Whole Blood 180 mg/dL (70-110)
[2022-06-06 19:04] LABS: Appearance,Urine Cloudy (Clear); Bacteria,Urine Occasional /hpf; Bilirubin,Urine Negative (Negative); Blood,Urine Moderate (Negative); Budding Yeast,Urine Many /hpf; Color,Urine Light Yellow; Glucose,Urine (UA) Negative (Negative); Ketones,Urine Negative (Negative); Leukocyte Esterase,Urine Large (Negative); Mucus,Urine Rare /hpf; Nitrite,Urine Negative (Negative); PH, Urine 5.5 (5.0-8.0); Protein,Urine 1+ (Negative); RBC,Urine 30 /hpf (0-5); Specific Gravity,Urine 1.013 (1.001-1.035); Squamous Epithelial Cell,Urine <1 /hpf (0-4); Urobilinogen,Urine <2.0 mg/dL (<2.0); WBC,Urine >182 /hpf (0-5)
[2022-06-06] MEDS: AMITRIPTYLINE HCL 25 MG TAB PO SCH (20:35)
[2022-06-06] MEDS: ATORVASTATIN 20 MG TAB PO SCH (20:35)
[2022-06-06] MEDS: FAMOTIDINE 20 MG TAB PO SCH (20:35)
[2022-06-06 20:47] LABS: Glucose,Whole Blood 192 mg/dL (70-110)
[2022-06-07] MEDS: DEXTROSE 5% IN WATER 1,000 ML with SODIUM BICARB (1 MEQ/ML) 150 ML IV SCH ×2 (01:13→20:25)
[2022-06-07] MEDS: DRY MOUTH SPRAY 44.3 SPRAY/44.3 ML SPRAY MUCOUS MEM SCH ×6 (03:34→23:33)
[2022-06-07 06:26] LABS: Glucose,Whole Blood 153 mg/dL (70-110)
[2022-06-07] MEDS: INSULIN ASPART (NovoLOG) 100 UNIT/ML VIAL SQ SCH ×4 (06:37→20:45)
[2022-06-07] MEDS: methocarbamoL 750 MG TAB PO SCH ×3 (06:37→20:45)
[2022-06-07 07:48] LABS: Calcium 8.8 mg/dL (8.4-10.2); Potassium 4.1 mmol/L (3.5-5.1)
[2022-06-07 07:56] LABS: Basophils % (A) 1 %; Eosinophils # (A) 0.2 k/uL (0-0.7); Eosinophils % (A) 4 %; HCT 26.6 % (34.0-46.0); HGB 8.5 gm/dL (11.4-16.0); Hypochromasia Slight; Lymphocytes # (A) 0.9 k/uL (1.0-4.8); Lymphocytes % (A) 16 %; MCH 31.6 pg (25.0-35.0); MCHC 31.9 g/dL (31.0-37.0); Macrocytosis Slight; Mean Platelet Volume 9.6; Monocytes # (A) 0.6 k/uL (0-1.0); Monocytes % (A) 11 %; Neutrophils # (A) 3.7 k/uL (1.3-7.7); Neutrophils % (A) 66 %; Platelet Count 188 k/uL (150-450); Poikilocytosis Slight; RBC 2.69 m/uL (3.80-5.40); RDW 15.8 % (11.5-15.5); WBC 5.6 k/uL (3.8-10.6)
[2022-06-07] MEDS: IPRATROPIUM-ALBUTEROL 3 ML NEB INHALATION SCH ×4 (08:14→20:04)
[2022-06-07] MEDS ORDERED: DARBEPOETIN ALFA 25 MCG/0.42 ML SYRINGE SQ SCH (09:00)
--- NOTE | 2022-06-07 09:31 | P.PN ---
Subjective Patient is seen for follow-up for acute kidney injury. Patient was admitted to the hospital with history of choking while eating a hot dog. Patient has paraplegia post recent cervical spinal surgery. She also has a PEG tube but has been recently trying to increase her oral intake from the mouth. Currently maintained on IV fluids. Serum creatinine slowly increasing from 3.28 on initial admission to 3.9 today. Previous creatinine 2.2 on 05/21/2022 and 2.9 on 05/04/2021 suggesting underlying chronic kidney disease stage IV. Patient has an indwelling Reynaga catheter with 24 hour urine output documented at 1.1 L Blood pressure has not been low. Objective - Vital Signs Vital signs: Vital Signs Temp 98 F 06/07/22 03:32 Pulse 93 06/07/22 08:29 Resp 20 06/07/22 03:32 BP 140/75 06/07/22 03:32 Pulse Ox 95 06/07/22 08:14 FiO2 40 06/05/22 19:55 Intake & Output 06/06/22 06/07/22 06/07/22 18:59 06:59 18:59 Output Total 850 275 Balance -850 -275 Output: Urine 850 275 Other: Voiding Method Indwelling Catheter Indwelling Catheter - Exam Awake, comfortable No acute distress Examination of the heart S1 and S2 Examination of the lungs bilateral breath sounds are heard Abdomen is soft nontender Examination of the lower extremities shows edema 1+ upper and lower extremities. Patient is paraplegic - Labs CBC & Chem 7: 06/07/22 06:32 06/07/22 06:32 Labs: Abnormal Lab Results - Last 24 Hours (Table) 06/06/22 06/06/22 06/06/22 Range/Units 09:09 11:32 16:46 RBC (3.80-5.40) m/uL Hgb (11.4-16.0) gm/dL Hct (34.0-46.0) % RDW (11.5-15.5) % Lymphocytes # (1.0-4.8) k/uL Sodium 135 L (137-145) mmol/L Chloride 108 H (98-107) mmol/L Carbon Dioxide 16 L (22-30) mmol/L BUN 110 H* (7-17) mg/dL Creatinine 3.77 H (0.52-1.04) mg/dL Glucose 130 H (74-99) mg/dL POC Glucose (mg/dL) 150 H 180 H (70-110) mg/dL Urine Appearance (Clear) Urine Protein (Negative) Urine Blood (Negative) Ur Leukocyte Esterase (Negative) Urine RBC (0-5) /hpf Urine WBC (0-5) /hpf Urine WBC Clumps (None) /hpf Urine Bacteria (None) /hpf Urine Mucus (None) /hpf Urine Yeast (Budding) (None) /hpf 06/06/22 06/06/22 06/07/22 Range/Units 18:15 20:45 06:23 RBC (3.80-5.40) m/uL Hgb (11.4-16.0) gm/dL Hct (34.0-46.0) % RDW (11.5-15.5) % Lymphocytes # (1.0-4.8) k/uL Sodium (137-145) mmol/L Chloride (98-107) mmol/L Carbon Dioxide (22-30) mmol/L BUN (7-17) mg/dL Creatinine (0.52-1.04) mg/dL Glucose (74-99) mg/dL POC Glucose (mg/dL) 192 H 153 H (70-110) mg/dL Urine Appearance Cloudy H (Clear) Urine Protein 1+ H (Negative) Urine Blood Moderate H (Negative) Ur Leukocyte Esterase Large H (Negative) Urine RBC 30 H (0-5) /hpf Urine WBC >182 H (0-5) /hpf Urine WBC Clumps Few H (None) /hpf Urine Bacteria Occasional H (None) /hpf Urine Mucus Rare H (None) /hpf Urine Yeast (Budding) Many H (None) /hpf 06/07/22 06/07/22 Range/Units 06:32 06:32 RBC 2.69 L (3.80-5.40) m/uL Hgb 8.5 L D (11.4-16.0) gm/dL Hct 26.6 L (34.0-46.0) % RDW 15.8 H (11.5-15.5) % Lymphocytes # 0.9 L (1.0-4.8) k/uL Sodium 134 L (137-145) mmol/L Chloride (98-107) mmol/L Carbon Dioxide 17 L (22-30) mmol/L BUN 114 H* (7-17) mg/dL Creatinine 3.95 H (0.52-1.04) mg/dL Glucose 121 H (74-99) mg/dL POC Glucose (mg/dL) (70-110) mg/dL Urine Appearance (Clear) Urine Protein (Negative) Urine Blood (Negative) Ur Leukocyte Esterase (Negative) Urine RBC (0-5) /hpf Urine WBC (0-5) /hpf Urine WBC Clumps (None) /hpf Urine Bacteria (None) /hpf Urine Mucus (None) /hpf Urine Yeast (Budding) (None) /hpf Assessment and Plan Assessment: 1. Acute kidney injury, ATN currently nonoliguric. Currently with indwelling Reynaga catheter. UA suggestive of UTI. No evidence of hydronephrosis on ultrasound. Blood pressure had been low initially currently improved. 2. Chronic kidney disease versus previous episode of acute kidney injury, NKF stage IV if not acute. 3. Chronic hypoxic respiratory failure maintained on 4 L nasal cannula 4. History of recent spinal surgery with complication of paraplegia 5. Dysphagia with history of recent choking. Patient has a PEG tube as well but has been mostly eating by mouth recently. 6. Non-gap metabolic acidosis secondary to acute kidney injury Plan: Continue with the bicarb drip Repeat labs in a.m. Avoid nephrotoxic agents Check urine culture Check iron profile Add Aranesp
[2022-06-07 10:00] VITALS: BMI 39.5
[2022-06-07] MEDS: CHLORHEXIDINE GLUCONATE 15 ML CUP MUCOUS MEM SCH ×2 (10:07→19:33)
[2022-06-07] MEDS: DOCUSATE 100 MG CAP PO SCH ×2 (10:07→20:35)
[2022-06-07] MEDS: GABAPENTIN 100 MG CAP PO SCH ×2 (10:07→20:35)
[2022-06-07] MEDS: LACOSAMIDE 150 MG TABLET PO SCH ×2 (10:07→18:05)
[2022-06-07] MEDS: CITALOPRAM HYDROBROMIDE 20 MG TAB PO SCH (10:07)
[2022-06-07] MEDS: HEPARIN SODIUM,PORCINE/PF 5,000 UNIT/0.5 ML SYRINGE SQ SCH ×2 (10:07→20:36)
[2022-06-07] MEDS: polyethylene glycoL 3350 17 GM POWD.PACK PO SCH (10:08)
[2022-06-07 11:47] LABS: Glucose,Whole Blood 139 mg/dL (70-110)
[2022-06-07 15:22] LABS: % Iron Saturation 28.31 (12.00-45.00)
[2022-06-07 17:02] LABS: Glucose,Whole Blood 135 mg/dL (70-110)
--- NOTE | 2022-06-07 17:34 | P.PN ---
Progress Note - Text Progress Note Date: 06/07/22 Patient was 66-year-old female was sent in from [facility] after she choked on a hot dog. Patient has a PEG tube and she doesn't use any patient is paraplegic after a cervical surgery patient has a Reynaga catheter does have a neck collar care home resident. Patient gave baseline creatinine appears to be around 2.5 present creatinine is 2.28 patient has dry mucous membranes appears to be severely dehydrated. Patient is tachycardic as well. Chest x-ray did not show any pneumonia or aspiration. Patient was bronchospastic which improved at this time. As per the nursing staff patient was unable to tolerate the thickened liquids will try honey thickened liquids. Speech therapy will be consulted. 06/06/2022 Patient is seen in follow-up this morning it is asleep but arousable. Patient does continue with her chronic neck collar status post cervical surgery and patient is paraplegic and resides at [facility]. Patient was sent here and was found to have severe dehydration and bronchospasms after choking on a hot dog at the [facility] facility. Patient does have a PEG tube and will evaluate for possible tube feedings with consult dietitian. Nephrology following as well as kidney functions have worsened is currently a BUN of 110 with a creatinine of 3.77, sodium is 135 and potassium is 3.8. Patient is afebrile and vital signs stable and patient is maintained on 4 L via nasal cannula with an oxygen saturation of 95%. Ultrasound of the abdomen bladder has been ordered and pending at this time. Nephrology and Pulmonary is following as well. Patient is being placed on sodium bicarb drip and recommend repeat labs. IV fluids have been discontinued. Also awaiting speech therapy evaluation. June 07: I assumed care from Dr. Ramirez. Most of the history is obtained by the at the bedside. Patient had a neck and back surgery a few weeks ago. Was given a collar. When she was transferred from one floor to the floor apparently the patient did not have a collar. Subsequently the patient developed weakness in all 4 limbs. Patient just about able to move her hands. Some movement in her toes and feet. Does have sensation. Patient has been eating food by mouth for 4 weeks. Does have a PEG tube. Able to tolerate her diet. Was admitted after she choked on a hot dog. At her baseline needs assistance with feeding. Patient is up and was seen by speech therapist. Recommended continued dysphagia level III job diet with nectar thick liquids. With one-to-one assist. Upright positioning at all times. Patient also being followed by nephrology. Active Medications Acetaminophen (Acetaminophen Tab 325 Mg Tab) 650 mg PO Q4H PRN PRN Reason: Pain Albuterol/Ipratropium (Ipratropium-Albuterol 3 Ml Neb) 3 ml INHALATION RT-QID [facility] Last Admin: 06/07/22 15:50 Dose: 3 ml Amitriptyline HCl (Amitriptyline Hcl 25 Mg Tab) 75 mg PO [facility] Last Admin: 06/06/22 20:35 Dose: 75 mg Atorvastatin Calcium (Atorvastatin 20 Mg Tab) 20 mg PO [facility] Last Admin: 06/06/22 20:35 Dose: 20 mg Chlorhexidine Gluconate (Chlorhexidine Gluconate 15 Ml Cup) 15 ml MUCOUS MEM BID@0800,1600 [facility] Last Admin: 06/07/22 10:07 Dose: Not Given Citalopram Hydrobromide (Citalopram Hydrobromide 20 Mg Tab) 20 mg PO DAILY [facility] Last Admin: 06/07/22 10:07 Dose: 20 mg Darbepoetin Galdino (Darbepoetin Galdino 25 Mcg/0.42 Ml Syringe) 25 mcg SQ Mo@0900 [facility] Last Admin: 06/07/22 10:07 Dose: 25 mcg Docusate Sodium (Docusate 100 Mg Cap) 100 mg PO BID [facility] Last Admin: 06/07/22 10:07 Dose: Not Given Famotidine (Famotidine 20 Mg Tab) 20 mg PO [facility] Last Admin: 06/06/22 20:35 Dose: 20 mg Gabapentin (Gabapentin 100 Mg Cap) 100 mg PO BID@0800,2000 [facility] Last Admin: 06/07/22 10:07 Dose: 100 mg Heparin Sodium (Porcine) (Heparin Sodium,Porcine/Pf 5,000 Unit/0.5 Ml Syringe) 5,000 unit SQ Q12HR [facility] Last Admin: 06/07/22 10:07 Dose: 5,000 unit Sodium Bicarbonate 150 ml/ (Dextrose/Water) 1,150 mls @ 80 mls/hr IV .[id number] [facility] Last Admin: 06/07/22 01:13 Dose: 80 mls/hr Cefepime HCl 1 gm/ Sodium (Chloride) 50 mls @ 12.5 mls/hr IVPB Q8HR [facility]; Protocol Insulin Aspart (Insulin Aspart (Novolog) 100 Unit/Ml Vial) 0 unit SQ ACHS [facility]; Protocol Last Admin: 06/07/22 13:52 Dose: Not Given Lacosamide (Lacosamide 150 Mg Tablet) 150 mg PO BID@0800,1600 [facility] Last Admin: 06/07/22 10:07 Dose: 150 mg Lorazepam (Lorazepam 0.5 Mg Tab) 0.5 mg PO TID@0500,1300,2100 PRN PRN Reason: Anxiety Methocarbamol (Methocarbamol 750 Mg Tab) 750 mg PO TID@0500,1300,2100 [facility] Last Admin: 06/07/22 13:47 Dose: 750 mg Naloxone HCl (Naloxone 0.4 Mg/Ml 1 Ml Vial) 0.2 mg IVP Q2M PRN PRN Reason: Opioid Reversal Polyethylene Glycol (Polyethylene Glycol 3350 17 Gm Powd.Pack) 17 gm PO DAILY [facility] Last Admin: 06/07/22 10:08 Dose: Not Given Saliva Substitute (Dry Mouth [place] 44.3 [place]/44.3 Ml [place]) 3 spray MUCOUS MEM Q4H [facility] Last Admin: 06/07/22 13:47 Dose: 3 spray On examination: VITAL SIGNS: [98.6, 99, 20, 131/68, 94% on 4 L] GENERAL APPEARANCE: Sitting up in bed with support. Awake. HEENT: Normal external appearance of nose and ear. Oral cavity normal EYES: Pupils equal. Conjunctiva normal. NECK: Hard neck collar RESPIRATORY: Respiratory effort normal. Lungs clear to auscultation. CARDIOVASCULAR: First and second sounds normal. No edema. ABDOMEN: Soft. Liver and spleen not palpable. No tenderness. No mass palpable. PEG tube PSYCHIATRY: Able to answer simple questions NEUROLOGICAL: Power 1/5 in both the arms and legs. Sensation present. INVESTIGATIONS, reviewed in the clinical context: Bladder ultrasound: Unremarkable White count 5.6 hemoglobin 8.5 platelets 188 potassium 4.1 BUN 114 creatinine 3.95 June 04: BUN 96 creatinine 3.28 May 21: BUN 71.3 creatinine 2.01 May 2021: BUN 37 creatinine 2.9 Assessment and plan: -Chronic oropharyngeal dysphagia, following neck injury following cervical spine surgery Seen by speech therapist. For dysphagia level III diet with nectar thick liquids. Assist 1:1 . -Acute renal failure prerenal azotemia with dehydration intravascular depletion. From decreased oral intake: Worsening IV fluids. Follow nephrology -chronic kidney disease stage IV with baseline creatinine of around 2.5, probably secondary to diabetic nephropathy Follow renal function -COPD without any exacerbation -Type 2 diabetes mellitus continue monitoring Accu-Cheks -Acute hypoxemia: Secondary to bronchospasm from choking Incentive spirometry -Worsening metabolic acidosis from renal failure Bicarbonate drip -Diabetic peripheral neuropathy Neurontin 100 mg twice a day -Acute UTI with cystitis IV cefepime -Depression Celexa -Hyperlipidemia Lipitor -PEG tube, currently not being used -Quadriparesis from cervical spine injury. History of cervical spine surgery -Chronic medical debility Care was discussed length with the and patient at the bedside. IV bicarbonate drip. Follow renal function. Modified diet as per speech therapist. 1:1 supervised for feeding. Total time spent today about 40 minutes with over 25 minutes of discussion.
[2022-06-07] MEDS: CEFEPIME 1 GM in SODIUM CHLORIDE 0.9% 50 ML IVPB SCH ×2 (19:32→23:00)
[2022-06-07 20:18] LABS: Glucose,Whole Blood 181 mg/dL (70-110)
[2022-06-07] MEDS: FAMOTIDINE 20 MG TAB PO SCH (20:35)
[2022-06-07] MEDS: AMITRIPTYLINE HCL 25 MG TAB PO SCH (20:35)
[2022-06-07] MEDS: ATORVASTATIN 20 MG TAB PO SCH (20:35)
[2022-06-08] MEDS: DRY MOUTH SPRAY 44.3 SPRAY/44.3 ML SPRAY MUCOUS MEM SCH ×5 (03:55→20:06)
[2022-06-08 06:06] LABS: Glucose,Whole Blood 107 mg/dL (70-110)
[2022-06-08] MEDS: INSULIN ASPART (NovoLOG) 100 UNIT/ML VIAL SQ SCH ×4 (06:11→20:59)
[2022-06-08] MEDS: DEXTROSE 5% IN WATER 1,000 ML with SODIUM BICARB (1 MEQ/ML) 150 ML IV SCH ×2 (06:12→16:13)
[2022-06-08] MEDS: methocarbamoL 750 MG TAB PO SCH ×3 (06:16→20:55)
[2022-06-08 08:30] LABS: Prothrombin Time 10.6 sec (9.0-12.0)
[2022-06-08 08:37] LABS: Basophils # (A) 0.1 k/uL (0-0.2); Basophils % (A) 1 %; Calcium 9.1 mg/dL (8.4-10.2); Eosinophils # (A) 0.2 k/uL (0-0.7); Eosinophils % (A) 4 %; HCT 28.5 % (34.0-46.0); HGB 9.1 gm/dL (11.4-16.0); Hypochromasia Moderate; Lymphocytes # (A) 1.2 k/uL (1.0-4.8); Lymphocytes % (A) 20 %; MCH 32.5 pg (25.0-35.0); MCHC 32.1 g/dL (31.0-37.0); MCV 101.2 fL (80.0-100.0); Macrocytosis Slight; Mean Platelet Volume 9.3; Monocytes # (A) 0.6 k/uL (0-1.0); Monocytes % (A) 10 %; Neutrophils # (A) 3.6 k/uL (1.3-7.7); Neutrophils % (A) 61 %; Platelet Count 202 k/uL (150-450); Poikilocytosis Slight; Potassium 4.5 mmol/L (3.5-5.1); RBC 2.81 m/uL (3.80-5.40); RDW 15.8 % (11.5-15.5)
[2022-06-08] MEDS: IPRATROPIUM-ALBUTEROL 3 ML NEB INHALATION SCH ×4 (08:58→20:07)
[2022-06-08] MEDS: HEPARIN SODIUM,PORCINE/PF 5,000 UNIT/0.5 ML SYRINGE SQ SCH ×2 (10:59→20:05)
[2022-06-08] MEDS: GABAPENTIN 100 MG CAP PO SCH ×2 (10:59→20:05)
[2022-06-08] MEDS: LACOSAMIDE 150 MG TABLET PO SCH ×2 (11:00→16:31)
[2022-06-08] MEDS: CITALOPRAM HYDROBROMIDE 20 MG TAB PO SCH (11:00)
[2022-06-08] MEDS: polyethylene glycoL 3350 17 GM POWD.PACK PO SCH (11:00)
[2022-06-08] MEDS: CEFEPIME 1 GM in SODIUM CHLORIDE 0.9% 50 ML IVPB SCH ×3 (11:01→23:26)
[2022-06-08] MEDS: DOCUSATE 100 MG CAP PO SCH ×2 (11:10→20:05)
--- NOTE | 2022-06-08 11:11 | P.PN ---
Subjective Patient is seen for follow-up for acute kidney injury. Patient was admitted to the hospital with history of choking while eating a hot dog. Patient has paraplegia post recent cervical spinal surgery. She also has a PEG tube but has been recently trying to increase her oral intake from the mouth. Currently maintained on IV fluids. Serum creatinine slowly increasing from 3.28 on initial admission to 3.9 today. Previous creatinine 2.2 on 05/21/2022 and 2.9 on 05/04/2021 suggesting underlying chronic kidney disease stage IV. Patient has an indwelling Reynaga catheter with 24 hour urine output documented at 2975 mL Blood pressure has not been low. Nursing staff reports that the IV was out overnight and patient is scheduled for PICC line placement. Objective - Vital Signs Vital signs: Vital Signs Temp 97.9 F 06/08/22 04:00 Pulse 98 06/08/22 04:00 Resp 18 06/08/22 04:00 BP 131/74 06/08/22 04:00 Pulse Ox 92 L 06/08/22 04:00 FiO2 40 06/05/22 19:55 Intake & Output 06/07/22 06/08/22 06/08/22 18:59 06:59 18:59 Intake Total 240 0 Output Total 975 Balance 240 -975 0 Weight 121.5 kg Intake: Oral 240 0 Output: Urine 975 Other: Voiding Method Indwelling Catheter Indwelling Catheter - Exam Awake, comfortable No acute distress Examination of the heart S1 and S2 Examination of the lungs bilateral breath sounds are heard Abdomen is soft nontender, PEG tube in place Examination of the lower extremities shows edema 1+ upper and lower extremities, Worse in the upper extremities Patient is paraplegic - Labs CBC & Chem 7: 06/08/22 07:45 06/08/22 07:45 Labs: Abnormal Lab Results - Last 24 Hours (Table) 06/07/22 06/07/22 06/07/22 Range/Units 06:32 11:45 17:00 RBC (3.80-5.40) m/uL Hgb (11.4-16.0) gm/dL Hct (34.0-46.0) % MCV (80.0-100.0) fL RDW (11.5-15.5) % Sodium (137-145) mmol/L Carbon Dioxide (22-30) mmol/L BUN (7-17) mg/dL Creatinine (0.52-1.04) mg/dL POC Glucose (mg/dL) 139 H 135 H (70-110) mg/dL TIBC 227 L (228-460) ug/dL Transferrin 162.0 L (204.0-354.0) mg/dL 06/07/22 06/08/22 06/08/22 Range/Units 20:16 07:45 07:45 RBC 2.81 L (3.80-5.40) m/uL Hgb 9.1 L (11.4-16.0) gm/dL Hct 28.5 L (34.0-46.0) % MCV 101.2 H (80.0-100.0) fL RDW 15.8 H (11.5-15.5) % Sodium 134 L (137-145) mmol/L Carbon Dioxide 15 L (22-30) mmol/L BUN 117 H* (7-17) mg/dL Creatinine 4.24 H (0.52-1.04) mg/dL POC Glucose (mg/dL) 181 H (70-110) mg/dL TIBC (228-460) ug/dL Transferrin (204.0-354.0) mg/dL Assessment and Plan Assessment: 1. Acute kidney injury, ATN currently nonoliguric. Currently with indwelling Reynaga catheter. UA suggestive of UTI. No evidence of hydronephrosis on ultrasound. Blood pressure had been low initially currently improved. Renal function is worse today with creatinine at 4.2 however patient did not receive any IV fluids yesterday and due to poor IV access. She is scheduled for a PICC line placement today 2. Chronic kidney disease versus previous episode of acute kidney injury, NKF stage IV if not acute. 3. Chronic hypoxic respiratory failure maintained on 4 L nasal cannula 4. History of recent spinal surgery with complication of paraplegia 5. Dysphagia with history of recent choking. Patient has a PEG tube as well but has been mostly eating by mouth recently. 6. Non-gap metabolic acidosis secondary to acute kidney injury Plan: Increase IV fluids Continue with IV bicarb Okay to proceed with PICC line Repeat labs in a.m. Avoid any nephrotoxic agents. I did try to contact patient's primary machine lay out worker Dr. Weathers. He is currently out of the country.
[2022-06-08 11:34] LABS: Glucose,Whole Blood 117 mg/dL (70-110)
[2022-06-08] MEDS: CHLORHEXIDINE GLUCONATE 15 ML CUP MUCOUS MEM SCH ×2 (14:46→16:15)
[2022-06-08 16:38] LABS: Glucose,Whole Blood 123 mg/dL (70-110)
--- NOTE | 2022-06-08 18:29 | P.PN ---
Progress Note - Text Progress Note Date: 06/08/22 Patient was 66-year-old female was sent in from [facility] after she choked on a hot dog. Patient has a PEG tube and she doesn't use any patient is paraplegic after a cervical surgery patient has a Reynaga catheter does have a neck collar snf resident. Patient gave baseline creatinine appears to be around 2.5 present creatinine is 2.28 patient has dry mucous membranes appears to be severely dehydrated. Patient is tachycardic as well. Chest x-ray did not show any pneumonia or aspiration. Patient was bronchospastic which improved at this time. As per the nursing staff patient was unable to tolerate the thickened liquids will try honey thickened liquids. Speech therapy will be consulted. 06/06/2022 Patient is seen in follow-up this morning it is asleep but arousable. Patient does continue with her chronic neck collar status post cervical surgery and patient is paraplegic and resides at [facility]. Patient was sent here and was found to have severe dehydration and bronchospasms after choking on a hot dog at the [facility] facility. Patient does have a PEG tube and will evaluate for possible tube feedings with consult dietitian. Nephrology following as well as kidney functions have worsened is currently a BUN of 110 with a creatinine of 3.77, sodium is 135 and potassium is 3.8. Patient is afebrile and vital signs stable and patient is maintained on 4 L via nasal cannula with an oxygen saturation of 95%. Ultrasound of the abdomen bladder has been ordered and pending at this time. Nephrology and Pulmonary is following as well. Patient is being placed on sodium bicarb drip and recommend repeat labs. IV fluids have been discontinued. Also awaiting speech therapy evaluation. June 07: I assumed care from Dr. Ramirez. Most of the history is obtained by the at the bedside. Patient had a neck and back surgery a few weeks ago. Was given a collar. When she was transferred from one floor to the floor apparently the patient did not have a collar. Subsequently the patient developed weakness in all 4 limbs. Patient just about able to move her hands. Some movement in her toes and feet. Does have sensation. Patient has been eating food by mouth for 4 weeks. Does have a PEG tube. Able to tolerate her diet. Was admitted after she choked on a hot dog. At her baseline needs assistance with feeding. Patient is up and was seen by speech therapist. Recommended continued dysphagia level III job diet with nectar thick liquids. With one-to-one assist. Upright positioning at all times. Patient also being followed by nephrology. June 08: Patient eating about 75% assistance. Per dietitian patient needs to feeding for catch-up. Patient also large wound on the back. ECF was contacted. Patient's had that. They were doing wound care. Orthopedics Dr. Devlin was consulted. They recommended patient to be transferred back to [facility]. Patient does not have any fever or white count. Active Medications Acetaminophen (Acetaminophen Tab 325 Mg Tab) 650 mg PO Q4H PRN PRN Reason: Pain Albuterol/Ipratropium (Ipratropium-Albuterol 3 Ml Neb) 3 ml INHALATION RT-QID [facility] Last Admin: 06/08/22 16:07 Dose: Not Given Amitriptyline HCl (Amitriptyline Hcl 25 Mg Tab) 75 mg PO [facility] Last Admin: 06/07/22 20:35 Dose: 75 mg Atorvastatin Calcium (Atorvastatin 20 Mg Tab) 20 mg PO [facility] Last Admin: 06/07/22 20:35 Dose: 20 mg Chlorhexidine Gluconate (Chlorhexidine Gluconate 15 Ml Cup) 15 ml MUCOUS MEM BID@0800,1600 [facility] Last Admin: 06/08/22 16:15 Dose: 15 ml Citalopram Hydrobromide (Citalopram Hydrobromide 20 Mg Tab) 20 mg PO DAILY [facility] Last Admin: 06/08/22 11:00 Dose: 20 mg Darbepoetin Galdino (Darbepoetin Galdino 25 Mcg/0.42 Ml Syringe) 25 mcg SQ Mo@0900 [facility] Last Admin: 06/07/22 10:07 Dose: 25 mcg Docusate Sodium (Docusate 100 Mg Cap) 100 mg PO BID [facility] Last Admin: 06/08/22 11:10 Dose: Not Given Famotidine (Famotidine 20 Mg Tab) 20 mg PO [facility] Last Admin: 06/07/22 20:35 Dose: 20 mg Gabapentin (Gabapentin 100 Mg Cap) 100 mg PO BID@0800,2000 [facility] Last Admin: 06/08/22 10:59 Dose: 100 mg Heparin Sodium (Porcine) (Heparin Sodium,Porcine/Pf 5,000 Unit/0.5 Ml Syringe) 5,000 unit SQ Q12HR [facility] Last Admin: 06/08/22 10:59 Dose: 5,000 unit Sodium Bicarbonate 150 ml/ (Dextrose/Water) 1,150 mls @ 80 mls/hr IV .[id number] [facility] Last Admin: 06/08/22 16:13 Dose: 80 mls/hr Cefepime HCl 1 gm/ Sodium (Chloride) 50 mls @ 12.5 mls/hr IVPB Q8HR [facility]; Protocol Last Admin: 06/08/22 16:31 Dose: 12.5 mls/hr Insulin Aspart (Insulin Aspart (Novolog) 100 Unit/Ml Vial) 0 unit SQ ACHS [facility]; Protocol Last Admin: 06/08/22 17:21 Dose: Not Given Lacosamide (Lacosamide 150 Mg Tablet) 150 mg PO BID@0800,1600 [facility] Last Admin: 06/08/22 16:31 Dose: 150 mg Lorazepam (Lorazepam 0.5 Mg Tab) 0.5 mg PO TID@0500,1300,2100 PRN PRN Reason: Anxiety Methocarbamol (Methocarbamol 750 Mg Tab) 750 mg PO TID@0500,1300,2100 [facility] Last Admin: 06/08/22 14:45 Dose: 750 mg Naloxone HCl (Naloxone 0.4 Mg/Ml 1 Ml Vial) 0.2 mg IVP Q2M PRN PRN Reason: Opioid Reversal Polyethylene Glycol (Polyethylene Glycol 3350 17 Gm Powd.Pack) 17 gm PO DAILY [facility] Last Admin: 06/08/22 11:00 Dose: 17 gm Saliva Substitute (Dry Mouth [place] 44.3 [place]/44.3 Ml [place]) 3 spray MUCOUS MEM Q4H [facility] Last Admin: 06/08/22 16:15 Dose: 3 spray On examination: VITAL SIGNS: 97.7, 96, 18, 1:30/63, 94% on 4 L] GENERAL APPEARANCE: Sitting up in bed with support. Awake. HEENT: Normal external appearance of nose and ear. Oral cavity normal EYES: Pupils equal. Conjunctiva normal. NECK: Hard neck collar RESPIRATORY: Respiratory effort normal. Lungs clear to auscultation. CARDIOVASCULAR: First and second sounds normal. No edema. ABDOMEN: Soft. Liver and spleen not palpable. No tenderness. No mass palpable. PEG tube PSYCHIATRY: Able to answer simple questions NEUROLOGICAL: Power 1/5 in both arms and legs. Sensation present. INVESTIGATIONS, reviewed in the clinical context: June 08: White count 67 globin 9.1 platelets 202 potassium 4.5 BUN 112 creatinine 4.24 Bladder ultrasound: Unremarkable White count 5.6 hemoglobin 8.5 platelets 188 potassium 4.1 BUN 114 creatinine 3.95 June 04: BUN 96 creatinine 3.28 May 21: BUN 71.3 creatinine 2.01 May 2021: BUN 37 creatinine 2.9 Assessment and plan: -Chronic oropharyngeal dysphagia, following neck injury following cervical spine surgery Seen by speech therapist. For dysphagia level III diet with nectar thick liquids. Assist 1:1 . -Acute renal failure prerenal azotemia with dehydration intravascular depletion. From decreased oral intake: Worsening Getting bicarbonate drip, increased 200 mL an hour. Follow nephrology -chronic kidney disease stage IV with baseline creatinine of around 2.5, probably secondary to diabetic nephropathy Follow renal function -COPD without any exacerbation -Type 2 diabetes mellitus continue monitoring Accu-Cheks -Acute hypoxemia: Secondary to bronchospasm from choking Incentive spirometry -Worsening metabolic acidosis from renal failure Bicarbonate drip -Diabetic peripheral neuropathy Neurontin 100 mg twice a day -Acute UTI with cystitis IV cefepime -Depression Celexa -Hyperlipidemia Lipitor -PEG tube, currently not being used -Quadriparesis from cervical spine injury. History of cervical spine surgery -Chronic medical debility -Deep lower back wound, POA Wound care to continue as per ECF/Dr. Mueller Care was discussed the patient. With nurse. With nephrology. Increase IV fluids from cc an hour. ID consulted for wound care. Also orthopedic Dr. Devlin consulted. Total time spent today about 45 minutes with over 25 minutes of discussion
[2022-06-08] MEDS ORDERED: SODIUM CHLORIDE 0.9% 1,000 ML IV SCH (18:30)
[2022-06-08] MEDS: FAMOTIDINE 20 MG TAB PO SCH (20:05)
[2022-06-08] MEDS: AMITRIPTYLINE HCL 25 MG TAB PO SCH (20:06)
[2022-06-08] MEDS: ATORVASTATIN 20 MG TAB PO SCH (20:06)
[2022-06-08 20:58] LABS: Glucose,Whole Blood 174 mg/dL (70-110)
--- NOTE | 2022-06-08 22:48 | P.CONS ---
History of Present Illness - Reason for Consult Consult date: 06/08/22 Dehisced lumbar incision history of osteomyelitis Requesting physician: Rob Hood - Chief Complaint Shortness of breath and choking on the food x few days - History of Present Illness Patient is a 66-year female who recently did have a prolonged stay at [facility] from 03/04/2022 till 04/14/2022 patient presented with a left foot drop she was noticed to have evidence of L5-S1 discitis and also with evidence of cervical spine stenosis s/p decompression of the cervical spine as well as a lumbar spine patient did have local culture positive with Pseudomonas aeruginosa and the patient has been treated with IV cefepime patient subsequently did have a lumbar wound dehiscence requiring debridement and restaging of her wound, patient also get a trach and PEG and subsequently [facility] the patient has been transferred to the local care home patient has been brought to this facility about 4 days ago after apparently the patient choked while eating a hot dog patient on presentation to the hospital was afebrile and no fever have been recorded subsequently patient did have a normal white count did have elevated BUN/creatinine for the patient has been evaluated by nephrology services patient also have a chest x-ray mild subsegmental atelectasis the patient has been continued on cefepime infectious disease was consulted today for her lumbar discitis and dehiscence of her lumbar sacral wound patient currently denies having any headache no chest pain or shortness with occasional cough has been complaining some lower back pain but no worsening no abdominal pain or any diarrhea Review of Systems Positive point has been mentioned in the HPI rest of the systems are negative Past Medical History Past Medical History: Coronary Artery Disease (CAD), COPD, CVA/TIA, Diabetes Mellitus, Hypertension, Pulmonary Embolus (PE) Additional Past Medical History / Comment(s): depression. quadriplegia History of Any Multi-Drug Resistant Organisms: None Reported Past Surgical History: Unable to Obtain Past Anesthesia/Blood Transfusion Reactions: Unable to Obtain Past Psychological History: Anxiety, Depression Smoking Status: Unknown if ever smoked Past Alcohol Use History: None Reported Past Drug Use History: None Reported Medications and Allergies Home Medications Medication Instructions Recorded Confirmed Type 0.9 % Sodium Chloride [Sodium 10 ml IV TID@0500,1300,2100 06/04/22 06/04/22 History Chloride Flush] Acetaminophen [Acetaminophen ER] 650 mg PO Q4H PRN 06/04/22 06/04/22 History Albuterol Nebulized [Ventolin 2.5 mg INHALATION RT-Q6H PRN 06/04/22 06/04/22 H istory Nebulized] Amitriptyline HCl [Elavil] 75 mg PO HS 06/04/22 06/04/22 History Atorvastatin [Lipitor] 20 mg PO HS 06/04/22 06/04/22 History Biotene Dry Mouth Liquid 15 ml PO Q4H 06/04/22 06/04/22 History Chlorhexidine Gluconate [Peridex] 15 ml PO BID@0800,1600 06/04/22 06/04/22 Hist ory Citalopram Hydrobromide 20 mg PO DAILY 06/04/22 06/04/22 History [Citalopram HBr] Docusate Sodium [Dok] 100 mg PO BID 06/04/22 06/04/22 History Epoetin Galdino-Epbx [Retacrit] 3,000 units SQ MOWEFR 06/04/22 06/04/22 History Famotidine 20 mg PO HS 06/04/22 06/04/22 History Gabapentin [Neurontin] 200 mg PO BID@0800,2000 06/04/22 06/04/22 History Glycopyrrolate 1 mg PO BID 06/04/22 06/04/22 History Heparin Sodium,Porcine [Heparin 5,000 unit SQ Q12HR 06/04/22 06/04/22 History Sodium] Insulin Lispro [Admelog] See Protocol SQ ACHS 06/04/22 06/04/22 History LORazepam [Ativan] 0.5 mg PO TID@0500,1300,2100 06/04/22 06/04/22 History Lacosamide [Vimpat] 150 mg PO BID@0800,1600 06/04/22 06/04/22 History Montelukast Sodium [Singulair] 10 mg PO HS 06/04/22 06/04/22 History Pro-Stat Liquid 30 ml PO DAILY 06/04/22 06/04/22 History methocarbamoL [Methocarbamol] 750 mg PO TID@0500,1300,2100 06/04/22 06/04/22 History polyethylene glycoL 3350 [Miralax] 17 gm PO DAILY 06/04/22 06/04/22 History Allergies Allergy/AdvReac Type Severity Reaction Status Date / Time diazepam [From Valium] Allergy Intermediate Rash/Hives Verified 06/04/22 21:12 morphine Allergy Intermediate Rash/Hives Verified 06/04/22 21:12 phenytoin [From Dilantin] Allergy Intermediate Rash/Hives Verified 06/04/22 21:12 Physical Exam Vitals: Vital Signs Temp Pulse Pulse Resp BP Pulse Ox 06/08/22 04:00 97.9 F 98 18 131/74 92 L 06/08/22 01:13 100 18 06/07/22 23:37 97.6 F 100 18 149/77 96 06/07/22 20:14 100 06/07/22 20:04 103 H 94 L 06/07/22 20:00 98 F 105 H 18 115/67 92 L 06/07/22 16:13 97 06/07/22 16:00 105 H 18 124/62 94 L 06/07/22 15:50 99 06/07/22 14:00 99 20 06/07/22 12:06 95 06/07/22 12:00 98.6 F 99 20 131/68 94 L 06/07/22 11:56 90 Intake and Output 06/07/22 06/08/22 06/08/22 22:59 06:59 14:59 Intake Total 0 Output Total 800 175 Balance -800 -175 0 Intake: Oral 0 Output: Urine 800 175 Other: Voiding Method Indwelling Catheter Indwelling Catheter GENERAL DESCRIPTION: Middle-aged female lying in bed, no distress. No tachypnea or accessory muscle of respiration use. HEENT: Shows Pallor , no scleral icterus. Oral mucous membrane is dry. No pharyngeal erythema or thrush NECK: Trachea central, no thyromegaly. LUNGS: Unlabored breathing. Decreased present at the base. No wheeze or crackle. HEART: S1, S2, regular rate and rhythm. No loud murmur ABDOMEN: Soft, no tenderness , guarding or rigidity, no organomegaly EXTREMITIES: One plus edema of feet. MUSCULOSKELETAL : Patient did have a deep wound/dehiscence of the lumbar incision was slough tissue SKIN: No rash, no masses palpable. NEUROLOGICAL: The patient is awake, alert, oriented x2, mood and affect normal. Results CBC & Chem 7: 06/09/22 13:02 06/09/22 09:48 Labs: Abnormal Lab Results - Last 24 Hours (Table) 06/07/22 06/07/22 06/07/22 Range/Units 06:32 11:45 17:00 RBC (3.80-5.40) m/uL Hgb (11.4-16.0) gm/dL Hct (34.0-46.0) % MCV (80.0-100.0) fL RDW (11.5-15.5) % Sodium (137-145) mmol/L Carbon Dioxide (22-30) mmol/L BUN (7-17) mg/dL Creatinine (0.52-1.04) mg/dL POC Glucose (mg/dL) 139 H 135 H (70-110) mg/dL TIBC 227 L (228-460) ug/dL Transferrin 162.0 L (204.0-354.0) mg/dL 06/07/22 06/08/22 06/08/22 Range/Units 20:16 07:45 07:45 RBC 2.81 L (3.80-5.40) m/uL Hgb 9.1 L (11.4-16.0) gm/dL Hct 28.5 L (34.0-46.0) % MCV 101.2 H (80.0-100.0) fL RDW 15.8 H (11.5-15.5) % Sodium 134 L (137-145) mmol/L Carbon Dioxide 15 L (22-30) mmol/L BUN 117 H* (7-17) mg/dL Creatinine 4.24 H (0.52-1.04) mg/dL POC Glucose (mg/dL) 181 H (70-110) mg/dL TIBC (228-460) ug/dL Transferrin (204.0-354.0) mg/dL Assessment and Plan (1) Wound dehiscence Status: Acute Code(s): T81.30XA - DISRUPTION OF WOUND, UNSPECIFIED, INITIAL ENCOUNTER SNOMED Code(s): 664344362 Plan: 1patient with a complicated history with recent prolonged stay at [facility] in this patient did have evidence of cervical spine stenosis as well as L5-S1 discitis in this patient did have a surgical decompression at both the lumbar and cervical spine she did have a positive culture from the lumbar spine with Pseudomonas aeruginosa for the patient is currently on cefepime the patient did have a wound dehiscence and currently with a deep wound to the lumbar spine area admitted to hospital with choking on a hot dog and also have evidence of renal failure. 2patient to continue with the cefepime while the patient already has a PICC line. 3await Ortho evaluation for possible transfer back to [place] because of the wound dehiscence and concern for deep infection that may need further debridement and cultures. We will follow on clinical condition and cultures to further adjust medication if needed Thank you for this consultation will follow this patient along with you Time with Patient: Greater than 30
[2022-06-09 00:01] LABS: Glucose,Whole Blood 178 mg/dL (70-110)
[2022-06-09] MEDS: DRY MOUTH SPRAY 44.3 SPRAY/44.3 ML SPRAY MUCOUS MEM SCH ×4 (00:28→12:44)
[2022-06-09] MEDS: DEXTROSE 5% IN WATER 1,000 ML with SODIUM BICARB (1 MEQ/ML) 150 ML IV SCH (04:41)
[2022-06-09] MEDS: methocarbamoL 750 MG TAB PO SCH ×2 (04:58→14:49)
[2022-06-09 06:06] LABS: Glucose,Whole Blood 142 mg/dL (70-110)
[2022-06-09] MEDS: INSULIN ASPART (NovoLOG) 100 UNIT/ML VIAL SQ SCH ×2 (06:38→12:16)
--- NOTE | 2022-06-09 08:42 | P.PN ---
Progress Note - Text Progress Note Date: 06/09/22 Patient admitted 06/04/22 for acute bronchospasm due to choking on a hotdog. Patient resides at [facility] and was transferred by EMS. Our services were consulted due to a dehiscence of a lumbar incision from a previous surgery performed by Dr. Bao Naranjo from [facility]. Patient and family were unable to remember date and procedure, just that they had performed cervical and lumbar spine surgery. Patient's spouse states her quadriplegia is due to a cervical injury after this procedure. Our service recommends patient to be transferred immediately to [facility] for her surgeon to address her delayed healing and wound.
[2022-06-09] MEDS: IPRATROPIUM-ALBUTEROL 3 ML NEB INHALATION SCH ×4 (08:46→15:12)
[2022-06-09] MEDS: GABAPENTIN 100 MG CAP PO SCH (09:13)
[2022-06-09] MEDS: CITALOPRAM HYDROBROMIDE 20 MG TAB PO SCH (09:13)
[2022-06-09] MEDS: LACOSAMIDE 150 MG TABLET PO SCH (09:13)
[2022-06-09] MEDS: HEPARIN SODIUM,PORCINE/PF 5,000 UNIT/0.5 ML SYRINGE SQ SCH (09:14)
[2022-06-09] MEDS: CEFEPIME 1 GM in SODIUM CHLORIDE 0.9% 50 ML IVPB SCH (09:14)
[2022-06-09] MEDS: polyethylene glycoL 3350 17 GM POWD.PACK PO SCH (09:15)
[2022-06-09] MEDS: DOCUSATE 100 MG CAP PO SCH (09:16)
--- NOTE | 2022-06-09 10:04 | XR ---
EXAMINATION TYPE: XR chest 1V portable DATE OF EXAM: 06/09/2022 COMPARISON: None INDICATION: Hypoxia shorter breath fluid overload TECHNIQUE: Single frontal view of the chest is obtained. FINDINGS: The heart size is normal. The pulmonary vasculature is normal. Left lower lobe infiltrate is present. Minimal left pleural effusion may be present. Some mild install technician ior right lower lobe infiltrate may be present. PICC line enters on the left with the tip in the distal superior vena cava region. IMPRESSION: 1. Bibasilar infiltrates with a small left pleural effusion. Correlate for atelectasis and pneumonia.
--- NOTE | 2022-06-09 10:04 | P.CONS ---
History of Present Illness - Reason for Consult Consult date: 06/09/22 wound care - History of Present Illness This is a 66 y/o female being seen by wound care for a surgical wound dehiscence. She recently underwent a surgical intervention of the spine resulting in a lumbar incision that has sensed dehisced. Patient had the surgery performed by Dr. Smith at [facility]. She is currently a resident at [facility] she was transferred via EMS due to acute bronchospasm from choking on a hotdog. Per the nurse able to visualize the spine. Patient and family were unable to remember date and procedure, just that they had performed cervical and lumbar spine surgery. Patient's spouse states her quadriplegia is due to a cervical injury after this procedure. Recommendation for patient to return to the surgeon who performed the surgery. Review Of Systems: Constitutional: No fever, no chills, no night sweats. No weight change. No weakness, fatigue or lethargy. No daytime sleepiness. Integumentary:reports wounds, no lesions. No rash or pruritus. No unusual bruising. No change in hair or nails. Physical exam: General Appearance: Alert, cooperative, no distress, appears stated age. Skin: See HPI all other Skin color, texture, tugor normal, no rashes or lesions. Neurologic: Alert oriented x3 Assessment: 1. Surgical wound dehiscence 2. Nonhealing ulceration to the back with bone involvement without necrosis Plan: 1. Cover with a border gauze. Recommendation for patient to return to surgeon who performed the surgery for recommendations. Thank you for the consultation any questions please contact the wound care center DNP note has been reviewed and discussed with Dr. Fuentes and the impression and plan of care has been directed as dictated. Past Medical History Past Medical History: Coronary Artery Disease (CAD), COPD, CVA/TIA, Diabetes Mellitus, Hypertension, Pulmonary Embolus (PE) Additional Past Medical History / Comment(s): depression. quadriplegia History of Any Multi-Drug Resistant Organisms: None Reported Past Surgical History: Unable to Obtain Past Anesthesia/Blood Transfusion Reactions: Unable to Obtain Past Psychological History: Anxiety, Depression Smoking Status: Unknown if ever smoked Past Alcohol Use History: None Reported Past Drug Use History: None Reported Medications and Allergies Home Medications Medication Instructions Recorded Confirmed Type 0.9 % Sodium Chloride [Sodium 10 ml IV TID@0500,1300,2100 06/04/22 06/04/22 History Chloride Flush] Acetaminophen [Acetaminophen ER] 650 mg PO Q4H PRN 06/04/22 06/04/22 History Albuterol Nebulized [Ventolin 2.5 mg INHALATION RT-Q6H PRN 06/04/22 06/04/22 History Nebulized] Amitriptyline HCl [Elavil] 75 mg PO HS 06/04/22 06/04/22 History Atorvastatin [Lipitor] 20 mg PO HS 06/04/22 06/04/22 History Biotene Dry Mouth Liquid 15 ml PO Q4H 06/04/22 06/04/22 History Chlorhexidine Gluconate [Peridex] 15 ml PO BID@0800,1600 06/04/22 06/04/22 History Citalopram Hydrobromide 20 mg PO DAILY 06/04/22 06/04/22 History [Citalopram HBr] Docusate Sodium [Dok] 100 mg PO BID 06/04/22 06/04/22 History Epoetin Galdino-Epbx [Retacrit] 3,000 units SQ MOWEFR 06/04/22 06/04/22 History Famotidine 20 mg PO HS 06/04/22 06/04/22 History Gabapentin [Neurontin] 200 mg PO BID@0800,199906/04/22 06/04/22 History Glycopyrrolate 1 mg PO BID 06/04/22 06/04/22 History Heparin Sodium,Porcine [Heparin 5,000 unit SQ Q12HR 06/04/22 06/04/22 History Sodium] Insulin Lispro [Admelog] See Protocol SQ ACHS 06/04/22 06/04/22 History LORazepam [Ativan] 0.5 mg PO TID@0500,1300,2100 06/04/22 06/04/22 History Lacosamide [Vimpat] 150 mg PO BID@0800,1600 06/04/22 06/04/22 History Montelukast Sodium [Singulair] 10 mg PO HS 06/04/22 06/04/22 History Pro-Stat Liquid 30 ml PO DAILY 06/04/22 06/04/22 History methocarbamoL [Methocarbamol] 750 mg PO TID@0500,1300,2100 06/04/22 06/04/22 History polyethylene glycoL 3350 [Miralax] 17 gm PO DAILY 06/04/22 06/04/22 History Allergies Allergy/AdvReac Type Severity Reaction Status Date / Time diazepam [From Valium] Allergy Intermediate Rash/Hives Verified 06/04/22 21:12 morphine Allergy Intermediate Rash/Hives Verified 06/04/22 21:12 phenytoin [From Dilantin] Allergy Intermediate Rash/Hives Verified 06/04/22 21:12 Physical Exam Vitals: Vital Signs Temp Pulse Pulse Resp BP Pulse Ox 06/09/22 09:16 94 L 06/09/22 08:53 99.1 F 111 H 21 128/60 88 L 06/09/22 08:46 92 L 06/09/22 04:00 99.5 F 108 H 16 127/60 91 L 06/08/22 23:49 97.8 F 104 H 16 118/55 91 L 06/08/22 20:21 92 06/08/22 20:10 92 06/08/22 20:00 98.2 F 106 H 19 113/66 91 L 06/08/22 16:00 97.7 F 18 130/63 94 L 06/08/22 14:00 96 18 06/08/22 13:03 92 06/08/22 12:56 93 L 06/08/22 12:53 88 06/08/22 12:00 98.5 F 96 18 157/71 96 Intake and Output 06/08/22 06/09/22 06/09/22 22:59 06:59 14:59 Intake Total 400 110 Output Total 300 300 250 Balance 100 -190 -250 Intake: Oral 180 Tube Feeding 220 110 Output: Urine 300 300 250 Other: Voiding Method Indwelling Catheter Indwelling Catheter # Bowel Movements 1 Results CBC & Chem 7: 06/08/22 07:45 06/08/22 07:45 Labs: Abnormal Lab Results - Last 24 Hours (Table) 06/08/22 06/08/22 06/08/22 Range/Units 11:32 16:34 20:57 POC Glucose (mg/dL) 117 H 123 H 174 H (70-110) mg/dL 06/08/22 06/09/22 Range/Units 23:59 06:05 POC Glucose (mg/dL) 178 H 142 H (70-110) mg/dL Microbiology - Last 24 Hours (Table) 06/07/22 22:57 Urine Culture - Preliminary Urine,Catheterized Assessment and Plan (1) Wound dehiscence Current Visit: Yes Status: Acute Code(s): T81.30XA - DISRUPTION OF WOUND, UNSPECIFIED, INITIAL ENCOUNTER SNOMED Code(s): 422504811 (2) 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
--- NOTE | 2022-06-09 10:13 | IR ---
PICC LINE PLACEMENT: HISTORY: Infection requiring long-term antibiotic therapy PROCEDURE: Ultrasound and fluoroscopic guidance of PICC line placement. COMPLICATIONS: None ANESTHESIA: 1. 1% Lidocaine locally. FINDINGS/TECHNIQUE: The procedure was explained to the patient. The risks, complications, benefits and alternatives were discussed and any questions were answered. Informed consent was obtained. The patient was placed supine on the fluoroscopic table and prepped and draped in the usual sterile fash ion. Utilizing a 21 gauge needle and sonographic and fluoroscopic guidance, access in the right bas ilic vein was achieved and there is placement of a 0.018 guidewire. The vein is patent. A 4-F sheat h was placed over the guidewire. The guidewire and dilator were removed and a 4-F. PICC line was areli claudette through the sheath with the tip at the level of the SVC. The sheath was removed, the catheter wa s flushed and sutured into position. The patient was stable throughout the procedure and remained st able upon discharge from the Department of Radiology. The vein puncture was patent under ultrasound. A parker scale image was obtained to document patency of the vein punctured. All elements of the maximal barrier technique were utilized. FLUOROSCOPY TIME: 0.6 minutes and 1 image submitted IMPRESSION: Successful PICC line placement under ultrasound and fluoroscopic guidance.
[2022-06-09 10:40] LABS: Calcium 8.5 mg/dL (8.4-10.2); Potassium 4.7 mmol/L (3.5-5.1)
[2022-06-09] MEDS: CHLORHEXIDINE GLUCONATE 15 ML CUP MUCOUS MEM SCH (11:42)
--- NOTE | 2022-06-09 11:48 | US ---
"EXAMINATION TYPE: US venous doppler duplex LE DATE OF EXAM: 06/09/2022 11:21 AM COMPARISON: NONE CLINICAL HISTORY: r/o dvt. Poor historian. Patient had back surgery x few months ago. Inpatient. SIDE PERFORMED: Bilateral TECHNIQUE: The lower extremity deep venous system is examined utilizing real time linear array sonog jose with graded compression, doppler sonography and color-flow sonography. VESSELS IMAGED: Common Femoral Vein Deep Femoral Vein Greater Saphenous Vein * Femoral Vein Popliteal Vein Small Saphenous Vein * Proximal Calf Veins (* superficial vessels) Suboptimal due to patient body habitus Right Leg: Positive for DVT in CFV and Deep Femoral Vein. Left Leg: Positive for DVT in Femoral vein, appears small in size. Duplicate FV visualized. IMPRESSION: 1. Deep venous thrombosis within the left lower extremity femoral vein. 2. Deep venous thrombosis within the right common femoral vein and deep femoral vein. A [place] level critical message alert has been initiated for Rob Hood MD via the [facility] 36 0 | Critical Results System on 06/09/2022 11:46 AM. This message alert has been sent to Rob Hood MD via the preferences provided by the clinician for the receipt of Radiology Critical Findings. [place] ssage ID [id number]."
[2022-06-09 11:57] LABS: Glucose,Whole Blood 131 mg/dL (70-110)
--- NOTE | 2022-06-09 12:07 | P.PN ---
Subjective Patient is seen for follow-up for acute kidney injury. Patient was admitted to the hospital with history of choking while eating a hot dog. Patient has paraplegia post recent cervical spinal surgery. She also has a PEG tube but has been recently trying to increase her oral intake from the mouth. Currently maintained on IV fluids. Serum creatinine slowly increasing from 3.28 on initial admission to 4.4 today. Previous creatinine 2.2 on 05/21/2022 and 2.9 on 05/04/2021 suggesting underlying chronic kidney disease stage IV. Patient has an indwelling Reynaga catheter with 24 hour urine output documented at 975 mL Blood pressure has not been low. Started on tube feeds as well as IV fluids. IV fluids had been of the day before secondary to poor IV access. Patient now has a PICC line. Objective - Vital Signs Vital signs: Vital Signs Temp 99.1 F 06/09/22 08:53 Pulse 111 H 06/09/22 08:53 Resp 21 06/09/22 08:53 BP 128/60 06/09/22 08:53 Pulse Ox 94 L 06/09/22 09:16 FiO2 40 06/05/22 19:55 Intake & Output 06/08/22 06/09/22 06/09/22 18:59 06:59 18:59 Intake Total 650 275 Output Total 300 300 250 Balance 350 -25 -250 Weight 131 kg Intake: Oral 540 Tube Feeding 110 275 Output: Urine 300 300 250 Other: Voiding Method Indwelling Catheter Indwelling Catheter # Bowel Movements 1 - Exam Awake, comfortable No acute distress Examination of the heart S1 and S2 Examination of the lungs bilateral breath sounds are heard Abdomen is soft nontender, PEG tube in place Examination of the lower extremities shows edema 1+ upper and lower extremities, Worse in the upper extremities Patient is paraplegic - Labs CBC & Chem 7: 06/08/22 07:45 06/09/22 09:48 Labs: Abnormal Lab Results - Last 24 Hours (Table) 06/08/22 06/08/22 06/08/22 Range/Units 16:34 20:57 23:59 Sodium (137-145) mmol/L Chloride (98-107) mmol/L Carbon Dioxide (22-30) mmol/L BUN (7-17) mg/dL Creatinine (0.52-1.04) mg/dL Glucose (74-99) mg/dL POC Glucose (mg/dL) 123 H 174 H 178 H (70-110) mg/dL 06/09/22 06/09/22 06/09/22 Range/Units 06:05 09:48 11:55 Sodium 133 L (137-145) mmol/L Chloride 97 L (98-107) mmol/L Carbon Dioxide 17 L (22-30) mmol/L BUN 124 H* (7-17) mg/dL Creatinine 4.42 H (0.52-1.04) mg/dL Glucose 105 H (74-99) mg/dL POC Glucose (mg/dL) 142 H 131 H (70-110) mg/dL Microbiology - Last 24 Hours (Table) 06/07/22 22:57 Urine Culture - Preliminary Urine,Catheterized Assessment and Plan Assessment: 1. Acute kidney injury, ATN currently nonoliguric. Currently with indwelling Reynaga catheter. UA suggestive of UTI. No evidence of hydronephrosis on ultrasound. Blood pressure had been low initially currently improved. Renal function is worse today with creatinine at 4.2 however patient did not receive any IV fluids the day before and due to poor IV access. She is status post PICC line. 2. Chronic kidney disease versus previous episode of acute kidney injury, NKF stage IV if not acute. 3. Chronic hypoxic respiratory failure maintained on 4 L nasal cannula 4. History of recent spinal surgery with complication of paraplegia 5. Dysphagia with history of recent choking. Patient has a PEG tube as well but has been mostly eating by mouth recently. 6. Non-gap metabolic acidosis secondary to acute kidney injury Plan: Continue with IV bicarb Repeat labs in a.m. Avoid any nephrotoxic agents Monitor on a daily basis for need for renal replacement therapy.
[2022-06-09] MEDS ORDERED: HEPARIN SODIUM 1,000 UN/ML (10ML VL) IV PRN (12:18)
[2022-06-09] MEDS ORDERED: HEPARIN SOD,PORK IN 0.45% NACL 25,000 UNIT in 0.45% NACL 1 250ML.BAG IV SCH (12:30)
[2022-06-09 12:43] VITALS: BP 121/58; PULSE 108; RESP 20
[2022-06-09 13:22] LABS: Basophils % (A) 1 %; Eosinophils # (A) 0.3 k/uL (0-0.7); Eosinophils % (A) 5 %; HGB 8.6 gm/dL (11.4-16.0); Lymphocytes # (A) 1.1 k/uL (1.0-4.8); Lymphocytes % (A) 19 %; MCH 31.9 pg (25.0-35.0); MCHC 33.1 g/dL (31.0-37.0); MCV 96.4 fL (80.0-100.0); Mean Platelet Volume 9.7; Monocytes # (A) 0.5 k/uL (0-1.0); Monocytes % (A) 8 %; Neutrophils # (A) 3.8 k/uL (1.3-7.7); Neutrophils % (A) 65 %; Platelet Count 196 k/uL (150-450); Poikilocytosis Slight; RBC 2.69 m/uL (3.80-5.40); RDW 15.4 % (11.5-15.5); WBC 5.8 k/uL (3.8-10.6)
[2022-06-09 13:30] LABS: Partial Thromboplastin Time 23.8 sec (22.0-30.0); Prothrombin Time 10.4 sec (9.0-12.0)
--- NOTE | 2022-06-09 13:48 | P.GSCN ---
History of Present Illness Consult date: 06/09/22 Reason for Consult: Bilateral lower extremity femoral DVT Requesting physician: Rob Hood History of present illness: Patient is a 66-year-old female with multiple comorbidities who was admitted to the hospital on 06/04/2022 after choking on a hot dog and being hypoxic. She has a history of chronic hypoxia requires 4 L of nasal cannula at home.Unable to obtain history from patient due to mental status. Patient's is at the bedside and states the patient was recently admitted from February until March at [facility] with discitis and cervical spine stenosis status post decompression of cervical spine and lumbar spine. Apparently patient had positive blood cultures and subsequently wound dehiscence. Patient's states that she had complications after surgery and after she was transferred from her cervical surgery they did not put her c-collar on and patient fell asleep with her neck down and she has been a paraplegic on the right side ever since. She subsequently underwent trach and PEG tube he was transferred to [facility] and then [facility]. He states she has minimal movement to the left upper and lower extremity. Patient is now admitted here with wound dehiscence of her lumbar sacral wound noted with consultation to both infectious disease and wound management. Orthopedic spinal surgeon Dr. Pete son was consulted and recommends transfer to [facility] where surgery had initially been completed. However states patient had some lower extremity swelling and they did a venous duplex of the bilateral lower extremities which were positive for bilateral femoral DVT. Vascular surgery was consulted for bilateral DVT. Patient's states she does have a history of DVT in the left lower extremity as well as pulmonary embolism. He states she had been on Eliquis but was taken off of it during rehab and put on subcutaneous heparin. Review of Systems ROS unobtainable: due to mental status Past Medical History Past Medical History: Coronary Artery Disease (CAD), COPD, CVA/TIA, Diabetes Mellitus, Hypertension, Pulmonary Embolus (PE) Additional Past Medical History / Comment(s): depression. quadriplegia History of Any Multi-Drug Resistant Organisms: None Reported Past Surgical History: Unable to Obtain Past Anesthesia/Blood Transfusion Reactions: Unable to Obtain Past Psychological History: Anxiety, Depression Smoking Status: Unknown if ever smoked Past Alcohol Use History: None Reported Past Drug Use History: None Reported Medications and Allergies Home Medications Medication Instructions Recorded Confirmed Type 0.9 % Sodium Chloride [Sodium 10 ml IV TID@0500,1300,2100 06/04/22 06/04/22 History Chloride Flush] Acetaminophen [Acetaminophen ER] 650 mg PO Q4H PRN 06/04/22 06/04/22 History Albuterol Nebulized [Ventolin 2.5 mg INHALATION RT-Q6H PRN 06/04/22 06/04/22 History Nebulized] Amitriptyline HCl [Elavil] 75 mg PO HS 06/04/22 06/04/22 History Atorvastatin [Lipitor] 20 mg PO HS 06/04/22 06/04/22 History Biotene Dry Mouth Liquid 15 ml PO Q4H 06/04/22 06/04/22 History Chlorhexidine Gluconate [Peridex] 15 ml PO BID@0800,1600 06/04/22 06/04/22 History Citalopram Hydrobromide 20 mg PO DAILY 06/04/22 06/04/22 History [Citalopram HBr] Docusate Sodium [Dok] 100 mg PO BID 06/04/22 06/04/22 History Epoetin Galdino-Epbx [Retacrit] 3,000 units SQ MOWEFR 06/04/22 06/04/22 History Famotidine 20 mg PO HS 06/04/22 06/04/22 History Gabapentin [Neurontin] 200 mg PO BID@0800,2000 06/04/22 06/04/22 History Glycopyrrolate 1 mg PO BID 06/04/22 06/04/22 History Heparin Sodium,Porcine [Heparin 5,000 unit SQ Q12HR 06/04/22 06/04/22 History Sodium] Insulin Lispro [Admelog] See Protocol SQ ACHS 06/04/22 06/04/22 History LORazepam [Ativan] 0.5 mg PO TID@0500,1300,2100 06/04/22 06/04/22 History Lacosamide [Vimpat] 150 mg PO BID@0800,1600 06/04/22 06/04/22 History Montelukast Sodium [Singulair] 10 mg PO HS 06/04/22 06/04/22 History Pro-Stat Liquid 30 ml PO DAILY 06/04/22 06/04/22 History methocarbamoL [Methocarbamol] 750 mg PO TID@0500,1300,2100 06/04/22 06/04/22 History polyethylene glycoL 3350 [Miralax] 17 gm PO DAILY 06/04/22 06/04/22 History Allergies Allergy/AdvReac Type Severity Reaction Status Date / Time diazepam [From Valium] Allergy Intermediate Rash/Hives Verified 06/04/22 21:12 morphine Allergy Intermediate Rash/Hives Verified 06/04/22 21:12 phenytoin [From Dilantin] Allergy Intermediate Rash/Hives Verified 06/04/22 21:12 Surgical - Exam Vital Signs Temp Pulse Resp BP Pulse Ox 97.5 F L 110 H 24 85/60 94 L 06/04/22 18:38 06/04/22 18:38 06/04/22 18:38 06/04/22 18:38 06/04/22 18:38 General appearance: The patient is asleep, arousable with stimuli but confused. HET: Head is normocephalic and atraumatic. Neck: C-collar in place. Heart: S1 S2. Regular rate and rhythm. Lungs: Clear to auscultation bilaterally. Abdomen: Soft, nontender, nondistended with PEG tube. Extremities: Normal skin color and turgor. Warm to the touch. No edema. Palpable bilateral femoral, DP and PT pulses. Neurological: Patient lethargic, paraplegic right upper lower extremity. Results - Labs 06/09/22 13:02 06/09/22 09:48 Abnormal Lab Results - Last 24 Hours (Table) 06/08/22 06/08/22 06/08/22 Range/Units 16:34 20:57 23:59 Sodium (137-145) mmol/L Chloride (98-107) mmol/L Carbon Dioxide (22-30) mmol/L BUN (7-17) mg/dL Creatinine (0.52-1.04) mg/dL Glucose (74-99) mg/dL POC Glucose (mg/dL) 123 H 174 H 178 H (70-110) mg/dL 06/09/22 06/09/22 06/09/22 Range/Units 06:05 09:48 11:55 Sodium 133 L (137-145) mmol/L Chloride 97 L (98-107) mmol/L Carbon Dioxide 17 L (22-30) mmol/L BUN 124 H* (7-17) mg/dL Creatinine 4.42 H (0.52-1.04) mg/dL Glucose 105 H (74-99) mg/dL POC Glucose (mg/dL) 142 H 131 H (70-110) mg/dL Microbiology - Last 24 Hours (Table) 06/07/22 22:57 Urine Culture - Preliminary Urine,Catheterized Diabetes panel 06/09/22 Range/Units 09:48 Sodium 133 L (137-145) mmol/L Potassium 4.7 (3.5-5.1) mmol/L Chloride 97 L (98-107) mmol/L Carbon Dioxide 17 L (22-30) mmol/L BUN 124 H* (7-17) mg/dL Creatinine 4.42 H (0.52-1.04) mg/dL Glucose 105 H (74-99) mg/dL Calcium 8.5 (8.4-10.2) mg/dL Calcium panel 06/09/22 Range/Units 09:48 Calcium 8.5 (8.4-10.2) mg/dL Pituitary panel 06/09/22 Range/Units 09:48 Sodium 133 L (137-145) mmol/L Potassium 4.7 (3.5-5.1) mmol/L Chloride 97 L (98-107) mmol/L Carbon Dioxide 17 L (22-30) mmol/L BUN 124 H* (7-17) mg/dL Creatinine 4.42 H (0.52-1.04) mg/dL Glucose 105 H (74-99) mg/dL Calcium 8.5 (8.4-10.2) mg/dL Adrenal panel 06/09/22 Range/Units 09:48 Sodium 133 L (137-145) mmol/L Potassium 4.7 (3.5-5.1) mmol/L Chloride 97 L (98-107) mmol/L Carbon Dioxide 17 L (22-30) mmol/L BUN 124 H* (7-17) mg/dL Creatinine 4.42 H (0.52-1.04) mg/dL Glucose 105 H (74-99) mg/dL Calcium 8.5 (8.4-10.2) mg/dL - Imaging Comments: Lower extremity venous duplex: Deep venous thrombosis within the left lower extremity femoral vein. Deep venous thrombosis within the right common femoral and deep femoral vein. Assessment and Plan Assessment: 1. Bilateral lower extremity femoral DVT 2. Shortness of breath/spasm following choking on hot dog 3. Patient is paraplegic status post cervical spine surgery, reported by family 4. Acute kidney injury 5. Lumbar Surgical Wound and wound dehiscence Plan: 1. Continue heparin drip for 24-48 hours, transition to oral anticoagulation of your choice. Patient had recently been on Eliquis. 2. No indication for any vascular surgical intervention at this time 3. Continue with medical management Thank you for this consultation, we'll continue to follow. The impression and plan of care has been dictated as directed. I performed a history and examination of this patient, discussed the same with the dictator. I agree with the dictator's note ,documented as a scribe. Any additional findings or plans will be noted.
--- NOTE | 2022-06-09 14:23 | P.PN ---
Subjective Progress Note Date: 06/09/22 Principal diagnosis: Shortness of breath 66-year-old female with a history of spinal surgery and subsequent paraplegia, who resides at a [facility]. The patient apparently was eating a hot dog, and chill, and may be aspirated portion of the hot dog, and developed some respir atory distress, bronchospasm, and difficulty breathing, and was brought to the emergency room to be evaluated. She apparently was quite bronchospastic when she was initially evaluated in the emergency department. The patient does have a PEG tube. Apparently the patient had spinal surgery a couple months back, is currently wearing a cervical collar. The patient was brought to the emergency room by EMS. Currently she is on 5 L nasal cannula. Her heart rate 200. Blood pressure is stable. White count 7, heme him 10.2, hematocrit 31.4, with a normal platelet count. Sodium 134, potassium 3.9, chlorides 106, CO2 15, anion gap 13, BUN 96, with a creatinine of 3.28. Chest x-ray showed just some mild subsegmental atelectasis. She is in no distress at the time of this consultation. On 06/09/2022 patient seen in follow-up. Patient is on selective care unit. She is currently on 5 L of oxygen her pulse ox is 92%, patient is afebrile. Chest x-ray today shows bibasilar infiltrate and small left pleural effusion likely related to atelectasis. Patient is on cefepime for antibiotic coverage. No worsening dyspnea. No fever or chills. No chest pain. Lower extremity Dopplers are positive for DVT, patient was started on heparin infusion. Patient underwent speech evaluation, and modified diet pured with non-thickened liquids was recommended. Today's labs have been reviewed, patient has acute kidney injury, being followed by nephrology. Urinalysis showed evidence of urinary tr act infection, urine culture is pending. Vital signs stable, she remains on cefepime. Objective - Vital Signs Vital signs: Vital Signs Temp 99.1 F 06/09/22 08:53 Pulse 108 H 06/09/22 12:00 Resp 20 06/09/22 12:00 BP 121/58 06/09/22 12:00 Pulse Ox 92 L 06/09/22 12:15 FiO2 40 06/05/22 19:55 Intake & Output 06/08/22 06/09/2206/09/22 18:59 06:59 18:59 Intake Total 650 275 55 Output Total 300 300 250 Balance 350 -25 -195 Weight 131 kg Intake: Oral 540 Tube Feeding 110 275 55 Output: Urine 300 300 250 Other: Voiding Method Indwelling Catheter Indwelling Catheter # Bowel Movements 1 - Exam GENERAL EXAM: Alert, very pleasant, 66-year-old female, 5 L of oxygen pulse ox 92% comfortable in no apparent distress. HEAD: Normocephalic/atraumatic. EYES: Normal reaction of pupils, equal size. Conjunctiva pink, sclera white. NOSE: Clear with pink turbinates. THROAT: No erythema or exudates. NECK: No masses, no JVD, no thyroid enlargement, no adenopathy. CHEST: No chest wall deformity. Symmetrical expansion. LUNGS: Equal air entry with no crackles, wheeze, rhonchi or dullness. CVS: Regular rate and rhythm, normal S1 and S2, no gallops, no murmurs, no rubs ABDOMEN: Soft, nontender. No hepatosplenomegaly, normal bowel sounds, no guarding or rigidity. EXTREMITIES: No clubbing, no edema, no cyanosis, 2+ pulses and upper and lower extremities. MUSCULOSKELETAL: Muscle strength and tone normal. SPINE: No scoliosis or deformity SKIN: No rashes CENTRAL NERVOUS SYSTEM: Alert and oriented -3. No focal deficits, tone is normal in all 4 extremities. PSYCHIATRIC: Alert and oriented -3. Appropriate affect. Intact judgment and insight. - Labs CBC & Chem 7: 06/09/22 13:02 06/09/22 09:48 Labs: Abnormal Lab Results - Last 24 Hours (Table) 06/08/22 06/08/22 06/08/22 Range/Units 16:34 20:57 23:59 RBC (3.80-5.40) m/uL Hgb (11.4-16.0) gm/dL Hct (34.0-46.0) % Sodium (137-145) mmol/L Chloride (98-107) mmol/L Carbon Dioxide (22-30) mmol/L BUN (7-17) mg/dL Creatinine (0.52-1.04) mg/dL Glucose (74-99) mg/dL POC Glucose (mg/dL) 123 H 174 H 178 H (70-110) mg/dL 06/09/22 06/09/22 06/09/22 Range/Units 06:05 09:48 11:55 RBC (3.80-5.40) m/uL Hgb (11.4-16.0) gm/dL Hct (34.0-46.0) % Sodium 133 L (137-145) mmol/L Chloride 97 L (98-107) mmol/L Carbon Dioxide 17 L (22-30) mmol/L BUN 124 H* (7-17) mg/dL Creatinine 4.42 H (0.52-1.04) mg/dL Glucose 105 H (74-99) mg/dL POC Glucose (mg/dL) 142 H 131 H (70-110) mg/dL 06/09/22 Range/Units 13:02 RBC 2.69 L (3.80-5.40) m/uL Hgb 8.6 L (11.4-16.0) gm/dL Hct 26.0 L (34.0-46.0) % Sodium (137-145) mmol/L Chloride (98-107) mmol/L Carbon Dioxide (22-30) mmol/L BUN (7-17) mg/dL Creatinine (0.52-1.04) mg/dL Glucose (74-99) mg/dL POC Glucose (mg/dL) (70-110) mg/dL Microbiology - Last 24 Hours (Table) 06/07/22 22:57 Urine Culture - Preliminary Urine,Catheterized Assessment and Plan Plan: Assessment: #1. Dyspnea, and acute bronchospasm after a choking episode on a hot dog, resolved #2. Chronic hypoxic respiratory failure patient usually wears to L of oxygen #3. Recent cervical spinal surgery, and postoperatively patient had dehiscence of a lumbar incision #4. Quadriplegia #5. Acute kidney injury #6. Bilateral lower extremity DVT, currently on IV heparin #7. History of chronic kidney disease, please refer to nephrology consultation #8. Dysphagia, patient has a PEG tube however has been eating most recently. Passed swallow evaluation with the recommendation for modified diet and on thickened liquids #9. Anxiety and depression Plan: Continue aspiration precautions Patient is currently down to 5 L of oxygen continue to wean FiO2 Patient continues on antibiotics Vital signs are stable Continue breathing treatments Speech Therapy evaluation recommendations were noted Stable from pulmonary perspective Continue to follow with multiple consultants on the case I have personally seen and examined the patient and reviewed the documentation. I performed a joint evaluation with the nurse practitioner in this evaluation was done more than 10 minutes. I fully agree with the documentation above and the plan of care. The patient is feeling well and the patient can be potent ially discharged home today. This was discussed with the medical team. She has home O2 at 2 L per minute nasal cannula. Time with Patient: Less than 30
[2022-06-09 14:44] VITALS: TEMP 100.5
--- NOTE | 2022-06-09 15:47 | P.DS ---
Providers Date of admission: 06/04/22 21:04 Expected date of discharge: 06/09/22 Attending physician: Rob Hood Consults: 06/04/22 21:04 Consult Physician Routine Consulting Provider: Rod Land Consult Reason/Comments: bronchospastic episode Do you want consulting provider notified?: Yes 06/05/22 10:23 Consult Physician Routine Consulting Provider: Zoila Barroso Consult Reason/Comments: acute kidney injury Do you want consulting provider notified?: Yes 06/08/22 09:55 Consult Physician Urgent Consulting Provider: Say Reza Consult Reason/Comments: Dehisced Lumbar incision, hx osteomyelitis Do you want consulting provider notified?: Yes 06/08/22 12:52 Consult Physician Urgent Consulting Provider: Seb Devlin Consult Reason/Comments: dehisced back incision Do you want consulting provider notified?: Yes 06/09/22 10:33 Consult Physician Urgent Consulting Provider: Jacqueline Rosenbaum Consult Reason/Comments: hypoxia Do you want consulting provider notified?: Yes 06/09/22 11:52 Consult Physician Urgent Consulting Provider: Hilario Hassan Consult Reason/Comments: bilat femoral DVT Do you want consulting provider notified?: Yes Primary care physician: Stated None Hospital Course: Patient was 66-year-old female was sent in from [facility] after she choked on a hot dog. Patient has a PEG tube and she doesn't use any patient is paraplegic after a cervical surgery patient has a Reynaga catheter does have a neck collar [facility]. Patient gave baseline creatinine appears to be around 2.5 present creatinine is 2.28 patient has dry mucous membranes appears to be severely dehydrated. Patient is tachycardic as well. Chest x-ray did not show any pneumonia or aspiration. Patient was bronchospastic which improved at this time. As per the nursing staff patient was unable to tolerate the thickened liquids will try honey thickened liquids. Speech therapy will be consulted. 06/06/2022 Patient is seen in follow-up this morning it is asleep but arousable. Patient does continue with her chronic neck collar status post cervical surgery and patient is paraplegic and resides at [facility]. Patient was sent here and was found to have severe dehydration and bronchospasms after choking on a hot dog at the [facility] facility. Patient does have a PEG tube and will evaluate for possible tube feedings with consult dietitian. Nephrology following as well as kidney functions have worsened is currently a BUN of 110 with a creatinine of 3.77, sodium is 135 and potassium is 3.8. Patient is afebrile and vital signs stable and patient is maintained on 4 L via nasal cannula with an oxygen saturation of 95%. Ultrasound of the abdomen bladder has been ordered and pending at this time. Nephrology and Pulmonary is following as well. Patient is being placed on sodium bicarb drip and recommend repeat labs. IV fluids have been discontinued. Also awaiting speech therapy evaluation. June 07: I assumed care from Dr. Ramirez. Most of the history is obtained by the at the bedside. Patient had a neck and back surgery a few weeks ago. Was given a collar. When she was transferred from one floor to the floor apparently the patient did not have a collar. Subsequently the patient developed weakness in all 4 limbs. Patient just about able to move her hands. Some movement in her toes and feet. Does have sensation. Patient has been eating food by mouth for 4 weeks. Does have a PEG tube. Able to tolerate her diet. Was admitted after she choked on a hot dog. At her baseline needs assistance with feeding. Patient is up and was seen by speech therapist. Recommended continued dysphagia level III job diet with nectar thick liquids. With one-to-one assist. Upright positioning at all times. Patient also being followed by nephrology. June 08: Patient eating about 75% assistance. Per dietitian patient needs to feeding for catch-up. Patient also large wound on the back. [facility]CF was contacted. Patient's had that. They were doing wound care. Orthopedics Dr. Devlin was consulted. They recommended patient to be transferred back to [facility]. Patient does not have any fever or white count. June 09: Patient had some shortness of breath earlier today. Doppler ultrasound lower extremity showed bilateral femoral DVT. Vascular was consulted. At a baseline patient does use 4-5 L of oxygen. IV heparin was started. I spoke to patient's . He is agreeable for patient to get transferred to [facility] for his wound intervention. I spoke to surgeon Dr.Dr Bolden, who accepted the patient. He was updated. Patient is currently on IV cefepime. Total time spent today was about 1 hour On examination: VITAL SIGNS: 99.1, 111, 21, 1 28 x 60, 92% on 5 L GENERAL APPEARANCE: Reclining up in bed with support. Awake. HEENT: Normal external appearance of nose and ear. Oral cavity normal EYES: Pupils equal. Conjunctiva normal. NECK: Hard neck collar RESPIRATORY: Respiratory effort normal. Lungs clear to auscultation. CARDIOVASCULAR: First and second sounds normal. No edema. ABDOMEN: Soft. Liver and spleen not palpable. No tenderness. No mass palpable. PEG tube PSYCHIATRY: Able to answer simple questions NEUROLOGICAL: Power 1/5 in both arms and legs. Sensation present. INVESTIGATIONS, reviewed in the clinical context: June 09: WBC 5.8 hemoglobin 8.6 platelets 196 potassium 4.7 BUN 124 creatinine 4.4 to June 08: White count 67 globin 9.1 platelets 202 potassium 4.5 BUN 112 creatinine 4.24 Bladder ultrasound: Unremarkable White count 5.6 hemoglobin 8.5 platelets 188 potassium 4.1 BUN 114 creatinine 3.95 June 04: BUN 96 creatinine 3.28 May 21: BUN 71.3 creatinine 2.01 May 2021: BUN 37 creatinine 2.9 Assessment and plan: -Chronic oropharyngeal dysphagia, following neck injury following cervical spine surgery Seen by speech therapist. For dysphagia level III diet with nectar thick liquids. Assist 1:1 . -Acute renal failure prerenal azotemia with dehydration intravascular depletion. From decreased oral intake: Worsening Getting bicarbonate drip, . Follow nephrology -chronic kidney disease stage IV with baseline creatinine of around 2.5, probably secondary to diabetic nephropathy Follow renal function -COPD without any exacerbation, and a previous smoker DuoNeb -Type 2 diabetes mellitus continue monitoring Accu-Cheks -Acute hypoxemia: Secondary to bronchospasm from choking Incentive spirometry -Worsening metabolic acidosis from renal failure Bicarbonate drip -Diabetic peripheral neuropathy Neurontin 100 mg twice a day -Acute UTI with cystitis IV cefepime -Bilateral femoral DVT: New diagnosis IV heparin started -Depression Celexa -Hyperlipidemia Lipitor -PEG tube, for supplementing feeding -Quadriparesis from cervical spine injury. History of cervical spine and lumbar surgery -Chronic medical debility -Deep lower back wound, POA, infected Being followed by ID and orthopedic spine-no intervention by latter. Recommends transfer Disposition: Transferred to [facility]. Patient had his surgery done there. Plan - Discharge Summary New Discharge Prescriptions: No Action 0.9 % Sodium Chloride [Sodium Chloride Flush] 10 ml IV TID@0500,1300,2100 Heparin Sodium,Porcine [Heparin Sodium] 5,000 unit SQ Q12HR Docusate Sodium [Dok] 100 mg PO BID Pro-Stat Liquid 30 ml PO DAILY Epoetin Galdino-Epbx [Retacrit] 3,000 units SQ MOWEFR polyethylene glycoL 3350 [Miralax] 17 gm PO DAILY Montelukast Sodium [Singulair] 10 mg PO HS Famotidine 20 mg PO HS Albuterol Nebulized [Ventolin Nebulized] 2.5 mg INHALATION RT-Q6H PRN PRN Reason: Wheezing Acetaminophen [Acetaminophen ER] 650 mg PO Q4H PRN PRN Reason: Pain Insulin Lispro [Admelog] See Protocol SQ ACHS Biotene Dry Mouth Liquid 15 ml PO Q4H methocarbamoL [Methocarbamol] 750 mg PO TID@0500,1300,2100 Lacosamide [Vimpat] 150 mg PO BID@0800,1600 LORazepam [Ativan] 0.5 mg PO TID@0500,1300,2100 Glycopyrrolate 1 mg PO BID Gabapentin [Neurontin] 200 mg PO BID@0800,2000 Chlorhexidine Gluconate [Peridex] 15 ml PO BID@0800,1600 Citalopram Hydrobromide [Citalopram HBr] 20 mg PO DAILY Atorvastatin [Lipitor] 20 mg PO HS Amitriptyline HCl [Elavil] 75 mg PO HS Discharge Medication List 0.9 % Sodium Chloride [Sodium Chloride Flush] 10 ml IV TID@0500,1300,2100 06/04/22 [History] Acetaminophen [Acetaminophen ER] 650 mg PO Q4H PRN 06/04/22 [History] Albuterol Nebulized [Ventolin Nebulized] 2.5 mg INHALATION RT-Q6H PRN 06/04/22 [History] Amitriptyline HCl [Elavil] 75 mg PO HS 06/04/22 [History] Atorvastatin [Lipitor] 20 mg PO HS 06/04/22 [History] Biotene Dry Mouth Liquid 15 ml PO Q4H 06/04/22 [History] Chlorhexidine Gluconate [Peridex] 15 ml PO BID@0800,1600 06/04/22 [History] Citalopram Hydrobromide [Citalopram HBr] 20 mg PO DAILY 06/04/22 [History] Docusate Sodium [Dok] 100 mg PO BID 06/04/22 [History] Epoetin Galdino-Epbx [Retacrit] 3,000 units SQ MOWEFR 06/04/22 [History] Famotidine 20 mg PO HS 06/04/22 [History] Gabapentin [Neurontin] 200 mg PO BID@0800,199906/04/22 [History] Glycopyrrolate 1 mg PO BID 06/04/22 [History] Heparin Sodium,Porcine [Heparin Sodium] 5,000 unit SQ Q12HR 06/04/22 [History] Insulin Lispro [Admelog] See Protocol SQ ACHS 06/04/22 [History] LORazepam [Ativan] 0.5 mg PO TID@0500,1300,2100 06/04/22 [History] Lacosamide [Vimpat] 150 mg PO BID@0800,1600 06/04/22 [History] Montelukast Sodium [Singulair] 10 mg PO HS 06/04/22 [History] Pro-Stat Liquid 30 ml PO DAILY 06/04/22 [History] methocarbamoL [Methocarbamol] 750 mg PO TID@0500,1300,2100 06/04/22 [History] polyethylene glycoL 3350 [Miralax] 17 gm PO DAILY 06/04/22 [History] Follow up Appointment(s)/Referral(s): Alex Delgado, [NON-STAFF] - 1 Week None,Stated [Primary Care Provider] - 1-2 days
--- NOTE | 2022-06-09 16:13 | P.PN ---
Subjective Progress Note Date: 06/09/22 Principal diagnosis: Lumbar Osteomyelitis and dehiscence of the wound Patient is a 66-year-old female with a recent complicated history started with a left foot drop subsequently prolonged admission at [facility] patient did have both cervical and lumbar decompressive surgery and evidence of lumbar Osteomyelitis with Pseudomonas currently admitted to the hospital with the choking on the food and renal failure On today's evaluation that is 06/09/2022, the patient is afebrile the patient is currently sleepy lethargic and not a good historian, when asked specifically denies any chest pain or shortness breath or cough no abdominal pain and vomi ting or diarrhea has been reported by nursing staff Objective - Vital Signs Vital signs: Vital Signs Temp 99.1 F 06/09/22 08:53 Pulse 108 H 06/09/22 12:00 Resp 20 06/09/22 12:00 BP 121/58 06/09/22 12:00 Pulse Ox 92 L 06/09/22 12:15 FiO2 40 06/05/22 19:55 Intake & Output 06/08/22 06/09/22 06/09/22 18:59 06:59 18:59 Intake Total 650 275 55 Output Total 300 300 250 Balance 350 -25 -195 Weight 131 kg Intake: Oral 540 Tube Feeding 110 275 55 Output: Urine 300 300 250 Other: Voiding Method Indwelling Catheter Indwelling Catheter # Bowel Movements 1 - Exam GENERAL DESCRIPTION: Middle-aged female lying in bed in no distress RESPIRATORY SYSTEM: Unlabored breathing , decreased breath sounds at bases HEART: S1 S2 regular rate and rhythm , ABDOMEN: Soft , no tenderness EXTREMITIES: 1+ edema feet - Labs CBC & Chem 7: 06/09/22 13:02 06/09/22 09:48 Labs: Abnormal Lab Results - Last 24 Hours (Table) 06/08/22 06/08/22 06/08/22 Range/Units 16:34 20:57 23:59 Sodium (137-145) mmol/L Chloride (98-107) mmol/L Carbon Dioxide (22-30) mmol/L BUN (7-17) mg/dL Creatinine (0.52-1.04) mg/dL Glucose (74-99) mg/dL POC Glucose (mg/dL) 123 H 174 H 178 H (70-110) mg/dL 06/09/22 06/09/22 06/09/22 Range/Units 06:05 09:48 11:55 Sodium 133 L (137-145) mmol/L Chloride 97 L (98-107) mmol/L Carbon Dioxide 17 L (22-30) mmol/L BUN 124 H* (7-17) mg/dL Creatinine 4.42 H (0.52-1.04) mg/dL Glucose 105 H (74-99) mg/dL POC Glucose (mg/dL) 142 H 131 H (70-110) mg/dL Microbiology - Last 24 Hours (Table) 06/07/22 22:57 Urine Culture - Preliminary Urine,Catheterized Assessment and Plan (1) Wound dehiscence Status: Acute Code(s): T81.30XA - DISRUPTION OF WOUND, UNSPECIFIED, INITIAL ENCOUNTER SNOMED Code(s): 247812952 Plan: 1patient with a complicated history with recent prolonged stay at [facility] in this patient did have evidence of cervical spine stenosis as well as L5-S1 discitis in this patient did have a surgical decompression at both the lumbar and cervical spine she did have a positive culture from the lumbar spine with Pseudomonas aeruginosa for the patient is currently on cefepime the patient did have a wound dehiscence and currently with a deep wound to the lumbar spine area admitted to hospital with choking on a hot dog and also have evidence of renal failure. 2patient currently being treated with the cefepime which will be continued 3patient will benefit from transfer back to [place] because of the wound dehiscence and concern for deep infection that may need further debridement and cultures. This was discussed with the admitting physician currently working on transfer Time with Patient: Less than 30
== END 2022-06-09 15:29 | disposition other institution (70) | DRG 205 ==
LOC: EC 18:33 → 5NMEDONC 21:04 → 3SCARD 21:33
PROVIDERS: ADMIT Hospitalist; ATTEND Hospitalist
PROC: 02HV33Z Insertion of Infusion Device into Superior Vena Cava, Percutaneous Approach (ICD-10-PCS; principal; 2022-06-09)
PROC: B548ZZA Ultrasonography of Superior Vena Cava, Guidance (ICD-10-PCS; 2022-06-09)
PROC: B5181ZA Fluoroscopy of Superior Vena Cava using Low Osmolar Contrast, Guidance (ICD-10-PCS; 2022-06-09)
DX: T17.928A Food in respiratory tract, part unspecified causing other injury, initial encounter (principal); G82.50 Quadriplegia, unspecified; N17.0 Acute kidney failure with tubular necrosis; E87.2 Acidosis; I82.413 Acute embolism and thrombosis of femoral vein, bilateral; J96.11 Chronic respiratory failure with hypoxia; J98.11 Atelectasis; M46.26 Osteomyelitis of vertebra, lumbar region; N18.4 Chronic kidney disease, stage 4 (severe); T81.31XA Disruption of external operation (surgical) wound, not elsewhere classified, initial encounter; L98.426 Non-pressure chronic ulcer of back with bone involvement without evidence of necrosis; I12.9 Hypertensive chronic kidney disease with stage 1 through stage 4 chronic kidney disease, or unspecified chronic kidney disease; N30.90 Cystitis, unspecified without hematuria; E11.22 Type 2 diabetes mellitus with diabetic chronic kidney disease; Z20.822 Contact with and (suspected) exposure to COVID-19; J44.9 Chronic obstructive pulmonary disease, unspecified; E11.42 Type 2 diabetes mellitus with diabetic polyneuropathy; E11.69 Type 2 diabetes mellitus with other specified complication; E78.5 Hyperlipidemia, unspecified; J98.01 Acute bronchospasm; E86.0 Dehydration; F32.A Depression, unspecified; F41.9 Anxiety disorder, unspecified; Y84.4 Aspiration of fluid as the cause of abnormal reaction of the patient, or of later complication, without mention of misadventure at the time of the procedure; R00.0 Tachycardia, unspecified; I25.10 Atherosclerotic heart disease of native coronary artery without angina pectoris; R13.12 Dysphagia, oropharyngeal phase; Z79.2 Long term (current) use of antibiotics; Z79.4 Long term (current) use of insulin; Z79.899 Other long term (current) drug therapy; Z86.711 Personal history of pulmonary embolism; Z86.718 Personal history of other venous thrombosis and embolism; Z86.73 Personal history of transient ischemic attack (TIA), and cerebral infarction without residual deficits; Z87.891 Personal history of nicotine dependence; Z93.1 Gastrostomy status; J20.8 Acute bronchitis due to other specified organisms; X58.XXXA Exposure to other specified factors, initial encounter; Y92.129 Unspecified place in nursing home as the place of occurrence of the external cause; Z88.5 Allergy status to narcotic agent; Z88.8 Allergy status to other drugs, medicaments and biological substances
CPT/HCPCS: 36415; 36573; 71045; 76770; 80048; 80053; 81001; 83540; 83550; 83605; 83735; 83880; 84132; 84484; 85025; 85610; 85730; 87086; 87636; 93005; 93970; 94640; 94760; 96374; 99291

== ENCOUNTER 2022-07-01 15:19 | Inpatient (IN) | payer MEDICARE, BC ==
[2022-07-01] MEDS ORDERED: SODIUM CHLORIDE 0.9% 1,000 ML IV STA ×2 (15:33)
--- NOTE | 2022-07-01 15:42 | ED ---
SOB HPI - General Chief Complaint: Shortness of Breath Stated Complaint: GAGE, infection Time Seen by Provider: 07/01/22 15:19 Source: patient, EMS, RN notes reviewed, old records reviewed Mode of arrival: EMS Limitations: physical limitation - History of Present Illness Initial Comments: 66-year-old female with a history of multiple medical issues including quadriplegia after neck surgery per report is of a history of a tracheostomy a lumbar area wound VAC also a PEG tube who presents from her nursing facility with complaints of shortness of breath currently started last night but got worse today. Patient was noted have a 80 percent saturation on 4 L she was tachycardic with heart rate of 130 axillary temperature 103 per paramedics. She was given a DuoNeb treatment at the facility and did vomit. After being placed on 15 L of oxygen by mask she had a saturation of approximately 94%. Had a cough with some mucus. No chills or sweats no reported injuries MD Complaint: shortness of breath - Related Data Home Medications Medication Instructions Recorded Confirmed 0.9 % Sodium Chloride [Sodium 10 ml IV TID@0500,1300,2100 06/04/22 06/04/22 Chloride Flush] Acetaminophen [Acetaminophen ER] 650 mg PO Q4H PRN 06/04/22 06/04/22 Albuterol Nebulized [Ventolin 2.5 mg INHALATION RT-Q6H PRN 06/04/22 06/04/22 Nebulized] Amitriptyline HCl [Elavil] 75 mg PO HS 06/04/22 06/04/22 Atorvastatin [Lipitor] 20 mg PO HS 06/04/22 06/04/22 Biotene Dry Mouth Liquid 15 ml PO Q4H 06/04/22 06/04/22 Chlorhexidine Gluconate [Peridex] 15 ml PO BID@0800,1600 06/04/22 06/04/22 Citalopram Hydrobromide 20 mg PO DAILY 06/04/22 06/04/22 [Citalopram HBr] Docusate Sodium [Dok] 100 mg PO BID 06/04/22 06/04/22 Epoetin Galdino-Epbx [Retacrit] 3,000 units SQ MOWEFR 06/04/22 06/04/22 Famotidine 20 mg PO HS 06/04/22 06/04/22 Gabapentin [Neurontin] 200 mg PO BID@0800,2000 06/04/22 06/04/22 Glycopyrrolate 1 mg PO BID 06/04/22 06/04/22 Heparin Sodium,Porcine [Heparin 5,000 unit SQ Q12HR 06/04/22 06/04/22 Sodium] Insulin Lispro [Admelog] See Protocol SQ ACHS 06/04/22 06/04/22 LORazepam [Ativan] 0.5 mg PO TID@0500,1300,2100 06/04/22 06/04/22 Lacosamide [Vimpat] 150 mg PO BID@0800,1600 06/04/22 06/04/22 Montelukast Sodium [Singulair] 10 mg PO HS 06/04/22 06/04/22 Pro-Stat Liquid 30 ml PO DAILY 06/04/22 06/04/22 methocarbamoL [Methocarbamol] 750 mg PO TID@0500,1300,2100 06/04/22 06/04/22 polyethylene glycoL 3350 [Miralax] 17 gm PO DAILY 06/04/22 06/04/22 Allergies Allergy/AdvReac Type Severity Reaction Status Date / Time diazepam [From Valium] Allergy Intermediate Rash/Hives Verified 06/04/22 21:12 morphine Allergy Intermediate Rash/Hives Verified 06/04/22 21:12 phenytoin [From Dilantin] Allergy Intermediate Rash/Hives Verified 06/04/22 21:12 Review of Systems ROS Statement: Those systems with pertinent positive or pertinent negative responses have been documented in the HPI. ROS Other: All systems not noted in ROS Statement are negative. Past Medical History Past Medical History: Coronary Artery Disease (CAD), COPD, CVA/TIA, Diabetes Mellitus, Hypertension, Pulmonary Embolus (PE) Additional Past Medical History / Comment(s): depression. quadriplegia History of Any Multi-Drug Resistant Organisms: None Reported Past Surgical History: Unable to Obtain Past Anesthesia/Blood Transfusion Reactions: Unable to Obtain Past Psychological History: Anxiety, Depression Smoking Status: Unknown if ever smoked Past Alcohol Use History: None Reported Past Drug Use History: None Reported General Exam - General Exam Comments Initial Comments: This a well-developed well-nourished awake alert oriented 4 female Limitations: physical limitation General appearance: alert, anxious Head exam: Present: atraumatic, normocephalic, normal inspection Eye exam: Present: normal appearance, PERRL, EOMI. Absent: scleral icterus, conjunctival injection, periorbital swelling ENT exam: Present: mucous membranes dry Neck exam: Present: normal inspection, full ROM (Cervical collar in place no stridor JVD or bruits). Absent: tenderness, meningismus, lymphadenopathy Respiratory exam: Present: decreased breath sounds. Absent: respiratory distress, wheezes, rales, rhonchi, stridor Cardiovascular Exam: Present: normal rhythm, tachycardia, normal heart sounds. Absent: systolic murmur, diastolic murmur, rubs, gallop, clicks GI/Abdominal exam: Present: soft, normal bowel sounds, other (PEG tube in place evidence of paradoxical breathing). Absent: distended, tenderness, guarding, rebound, rigid Rectal exam: Present: deferred, other (Reynaga catheter in place) Extremities exam: Present: normal capillary refill, other (Quadriplegia). Absent: full ROM, tenderness, pedal edema, joint swelling, calf tenderness Back exam: Present: other (I did review the patient's back there is a dressing with a wound VAC over the lower back no evidence of localized erythema drainage.). Absent: tenderness Neurological exam: Present: alert, oriented X3, motor sensory deficit, other (Quadriplegia). Absent: reflexes normal Psychiatric exam: Present: normal mood, flat affect Skin exam: Present: warm, dry, intact, normal color. Absent: rash Course Vital Signs 07/01/22 07/01/22 15:21 15:30 Temperature 102.6 F H Pulse Rate 140 H Respiratory 16 20 Rate Blood Pressure 140/68 O2 Sat by Pulse 97 Oximetry - Reevaluation(s) Reevaluation #1: 07/01/22 18:53 I did discuss findings with the patient and the patient's as well as with Dr. Hood and Dr. Bolden at [facility]. The patient will be admitted here for inpatient evaluation and treatment Medical Decision Making - Medical Decision Making I did discuss findings with the patient and as well as Dr. Hood and Dr. Bolden. Patient will be admitted for inpatient evaluation treatment of fever the d-dimer is markedly elevated DVT is suspected patient will be placed on IV heparin for anticoagulation. Infectious disease will be consulted for evaluation of the sacral wound. - Lab Data Result diagrams: 07/01/22 15:55 07/01/22 15:55 Lab Results 07/01/22 07/01/22 07/01/22 Range/Units 15:55 15:55 15:55 WBC 7.7 (3.8-10.6) k/uL RBC 4.38 (3.80-5.40) m/uL Hgb 13.3 D (11.4-16.0) gm/dL Hct 42.5 (34.0-46.0) % MCV 97.2 (80.0-100.0) fL MCH 30.3 (25.0-35.0) pg MCHC 31.2 (31.0-37.0) g/dL RDW 13.9 (11.5-15.5) % Plt Count 158 (150-450) k/uL MPV 8.4 Neutrophils % (Manual) 69 % Band Neuts % (Manual) 21 % Lymphocytes % (Manual) 6 % Monocytes % (Manual) 2 % Eosinophils % (Manual) 1 % Metamyelocytes % 3 % Neutrophils # (Manual) 6.90 (1.3-7.7) k/uL Lymphocytes # (Manual) 0.46 L (1.0-4.8) k/uL Monocytes # (Manual) 0.15 (0-1.0) k/uL Eosinophils # (Manual) 0.08 (0-0.7) k/uL Metamyelocytes # (Man) 0.23 H (0) k/uL Nucleated RBCs 0 (0-0) /100 WBC Manual Slide Review Performed Toxic Granulation Present Hypochromasia Slight PT 11.1 (9.0-12.0) sec INR 1.0 (<1.2) APTT 20.9 L (22.0-30.0) sec D-Dimer 32.09 H (<0.60) mg/L FEU Sodium 139 (137-145) mmol/L Potassium 4.4 (3.5-5.1) mmol/L Chloride 102 (98-107) mmol/L Carbon Dioxide 19 L (22-30) mmol/L Anion Gap 18 mmol/L BUN 68 H (7-17) mg/dL Creatinine 1.51 H (0.52-1.04) mg/dL Est GFR (CKD-EPI)AfAm 42 (>60 ml/min/1.73 sqM) Est GFR (CKD-EPI)NonAf 36 (>60 ml/min/1.73 sqM) Glucose 168 H (74-99) mg/dL Plasma Lactic Acid Dimas (0.7-2.0) mmol/L Calcium 9.3 (8.4-10.2) mg/dL Magnesium 1.3 L (1.6-2.3) mg/dL Total Bilirubin 0.5 (0.2-1.3) mg/dL AST 18 (14-36) U/L ALT 12 (4-34) U/L Alkaline Phosphatase 106 (38-126) U/L Troponin I (0.000-0.034) ng/mL NT-Pro-B Natriuret Pep pg/mL Total Protein 6.2 L (6.3-8.2) g/dL Albumin 3.5 (3.5-5.0) g/dL Urine Color Urine Appearance (Clear) Urine pH (5.0-8.0) Ur Specific Tyner (1.001-1.035) Urine Protein (Negative) Urine Glucose (UA) (Negative) Urine Ketones (Negative) Urine Blood (Negative) Urine Nitrite (Negative) Urine Bilirubin (Negative) Urine Urobilinogen (<2.0) mg/dL Ur Leukocyte Esterase (Negative) Urine RBC (0-5) /hpf Urine WBC (0-5) /hpf Urine WBC Clumps (None) /hpf Ur Squamous Epith Cells (0-4) /hpf Urine Bacteria (None) /hpf Urine Mucus (None) /hpf Urine Yeast (Budding) (None) /hpf Coronavirus (PCR) (Not Detectd) Influenza Type A RNA (Not Detectd) Influenza Type B (PCR) (Not Detectd) 07/01/22 07/01/22 07/01/22 Range/Units 15:55 15:55 15:55 WBC (3.8-10.6) k/uL RBC (3.80-5.40) m/uL Hgb (11.4-16.0) gm/dL Hct (34.0-46.0) % MCV (80.0-100.0) fL MCH (25.0-35.0) pg MCHC (31.0-37.0) g/dL RDW (11.5-15.5) % Plt Count (150-450) k/uL MPV Neutrophils % (Manual) % Band Neuts % (Manual) % Lymphocytes % (Manual) % Monocytes % (Manual) % Eosinophils % (Manual) % Metamyelocytes % % Neutrophils # (Manual) (1.3-7.7) k/uL Lymphocytes # (Manual) (1.0-4.8) k/uL Monocytes # (Manual) (0-1.0) k/uL Eosinophils # (Manual) (0-0.7) k/uL Metamyelocytes # (Man) (0) k/uL Nucleated RBCs (0-0) /100 WBC Manual Slide Review Toxic Granulation Hypochromasia PT (9.0-12.0) sec INR (<1.2) APTT (22.0-30.0) sec D-Dimer (<0.60) mg/L FEU Sodium (137-145) mmol/L Potassium (3.5-5.1) mmol/L Chloride (98-107) mmol/L Carbon Dioxide (22-30) mmol/L Anion Gap mmol/L BUN (7-17) mg/dL Creatinine (0.52-1.04) mg/dL Est GFR (CKD-EPI)AfAm (>60 ml/min/1.73 sqM) Est GFR (CKD-EPI)NonAf (>60 ml/min/1.73 sqM) Glucose (74-99) mg/dL Plasma Lactic Acid Dimas 1.0 (0.7-2.0) mmol/L Calcium (8.4-10.2) mg/dL Magnesium (1.6-2.3) mg/dL Total Bilirubin (0.2-1.3) mg/dL AST (14-36) U/L ALT (4-34) U/L Alkaline Phosphatase (38-126) U/L Troponin I 0.034 (0.000-0.034) ng/mL NT-Pro-B Natriuret Pep 2890 pg/mL Total Protein (6.3-8.2) g/dL Albumin (3.5-5.0) g/dL Urine Color Urine Appearance (Clear) Urine pH (5.0-8.0) Ur Specific Tyner (1.001-1.035) Urine Protein (Negative) Urine Glucose (UA) (Negative) Urine Ketones (Negative) Urine Blood (Negative) Urine Nitrite (Negative) Urine Bilirubin (Negative) Urine Urobilinogen (<2.0) mg/dL Ur Leukocyte Esterase (Negative) Urine RBC (0-5) /hpf Urine WBC (0-5) /hpf Urine WBC Clumps (None) /hpf Ur Squamous Epith Cells (0-4) /hpf Urine Bacteria (None) /hpf Urine Mucus (None) /hpf Urine Yeast (Budding) (None) /hpf Coronavirus (PCR) (Not Detectd) Influenza Type A RNA (Not Detectd) Influenza Type B (PCR) (Not Detectd) 07/01/22 07/01/22 07/01/22 Range/Units 15:55 15:55 15:55 WBC (3.8-10.6) k/uL RBC (3.80-5.40) m/uL Hgb (11.4-16.0) gm/dL Hct (34.0-46.0) % MCV (80.0-100.0) fL MCH (25.0-35.0) pg MCHC (31.0-37.0) g/dL RDW (11.5-15.5) % Plt Count (150-450) k/uL MPV Neutrophils % (Manual) % Band Neuts % (Manual) % Lymphocytes % (Manual) % Monocytes % (Manual) % Eosinophils % (Manual) % Metamyelocytes % % Neutrophils # (Manual) (1.3-7.7) k/uL Lymphocytes # (Manual) (1.0-4.8) k/uL Monocytes # (Manual) (0-1.0) k/uL Eosinophils # (Manual) (0-0.7) k/uL Metamyelocytes # (Man) (0) k/uL Nucleated RBCs (0-0) /100 WBC Manual Slide Review Toxic Granulation Hypochromasia PT (9.0-12.0) sec INR (<1.2) APTT (22.0-30.0) sec D-Dimer (<0.60) mg/L FEU Sodium (137-145) mmol/L Potassium (3.5-5.1) mmol/L Chloride (98-107) mmol/L Carbon Dioxide (22-30) mmol/L Anion Gap mmol/L BUN (7-17) mg/dL Creatinine (0.52-1.04) mg/dL Est GFR (CKD-EPI)AfAm (>60 ml/min/1.73 sqM) Est GFR (CKD-EPI)NonAf (>60 ml/min/1.73 sqM) Glucose (74-99) mg/dL Plasma Lactic Acid Dimas (0.7-2.0) mmol/L Calcium (8.4-10.2) mg/dL Magnesium (1.6-2.3) mg/dL Total Bilirubin (0.2-1.3) mg/dL AST (14-36) U/L ALT (4-34) U/L Alkaline Phosphatase (38-126) U/L Troponin I (0.000-0.034) ng/mL NT-Pro-B Natriuret Pep pg/mL Total Protein (6.3-8.2) g/dL Albumin (3.5-5.0) g/dL Urine Color Yellow Urine Appearance Turbid H (Clear) Urine pH 5.5 (5.0-8.0) Ur Specific Tyner 1.014 (1.001-1.035) Urine Protein 1+ H (Negative) Urine Glucose (UA) Negative (Negative) Urine Ketones Trace H (Negative) Urine Blood Small H (Negative) Urine Nitrite Negative (Negative) Urine Bilirubin Negative (Negative) Urine Urobilinogen <2.0 (<2.0) mg/dL Ur Leukocyte Esterase Large H (Negative) Urine RBC 51 H (0-5) /hpf Urine WBC 81 H (0-5) /hpf Urine WBC Clumps Occasional H (None) /hpf Ur Squamous Epith Cells 1 (0-4) /hpf Urine Bacteria Occasional H (None) /hpf Urine Mucus Rare H (None) /hpf Urine Yeast (Budding) Many H (None) /hpf Coronavirus (PCR) Not Detected (Not Detectd) Influenza Type A RNA Not Detected (Not Detectd) Influenza Type B (PCR) Not Detected (Not Detectd) - Radiology Data Radiology results: report reviewed (Imaging reviewed as well as reports evidence bilateral atelectasis no definitive infiltrate), image reviewed Disposition Clinical Impression: Fever of unknown origin, Dehydration, Renal insufficiency, Elevated d-dimer, Tachycardia, Hypoxic episode, CHF (congestive heart failure), Quadriplegia Disposition: ADMITTED IP TO THIS [facility] Condition: Fair Referrals: Daniel Sarabia DO [Primary Care Provider] - 1-2 days Decision Date: 07/01/22 Decision Time: 18:00
[2022-07-01 16:33] LABS: Albumin 3.5 g/dL (3.5-5.0); Appearance,Urine Turbid (Clear); Bacteria,Urine Occasional /hpf; Bilirubin,Urine Negative (Negative); Blood,Urine Small (Negative); Budding Yeast,Urine Many /hpf; Calcium 9.3 mg/dL (8.4-10.2); Color,Urine Yellow; Glucose,Urine (UA) Negative (Negative); Ketones,Urine Trace (Negative); Leukocyte Esterase,Urine Large (Negative); Magnesium 1.3 mg/dL (1.6-2.3); Mucus,Urine Rare /hpf; Nitrite,Urine Negative (Negative); PH, Urine 5.5 (5.0-8.0); Potassium 4.4 mmol/L (3.5-5.1); Protein,Urine 1+ (Negative); RBC,Urine 51 /hpf (0-5); Specific Gravity,Urine 1.014 (1.001-1.035); Squamous Epithelial Cell,Urine 1 /hpf (0-4); Total Bilirubin 0.5 mg/dL (0.2-1.3); Total Protein 6.2 g/dL (6.3-8.2); Urobilinogen,Urine <2.0 mg/dL (<2.0); WBC,Urine 81 /hpf (0-5)
[2022-07-01 16:35] LABS: HCT 42.5 % (34.0-46.0); HGB 13.3 gm/dL (11.4-16.0); Hypochromasia Slight; MCH 30.3 pg (25.0-35.0); MCHC 31.2 g/dL (31.0-37.0); MCV 97.2 fL (80.0-100.0); Mean Platelet Volume 8.4; Platelet Count 158 k/uL (150-450); RBC 4.38 m/uL (3.80-5.40); RDW 13.9 % (11.5-15.5); WBC 7.7 k/uL (3.8-10.6)
[2022-07-01 17:00] LABS: Band Neutrophils % 21 %; Eosinophils # (M) 0.08 k/uL (0-0.7); Lymphocytes # (M) 0.46 k/uL (1.0-4.8); Metamyelocytes # (M) 0.23 k/uL (0); Metamyelocytes % 3 %; Monocytes # (M) 0.15 k/uL (0-1.0); Neutrophils % (M) 69 %; Nucleated Red Blood Cells 0 /100 WBC (0-0); Total Cells Counted 200; Toxic Granulation Present
[2022-07-01 17:03] LABS: Partial Thromboplastin Time 20.9 sec (22.0-30.0); Prothrombin Time 11.1 sec (9.0-12.0)
--- NOTE | 2022-07-01 17:04 | XR ---
EXAMINATION TYPE: XR chest 2V DATE OF EXAM: 07/01/2022 COMPARISON: 06/04/2022 HISTORY: Difficulty breathing TECHNIQUE: Frontal and lateral views of the chest are obtained. FINDINGS: There is mild bibasilar streaky opacities. No pleural effusion, or pneumothorax seen. The cardiac silhouette size is within normal limits. The osseous structures are intact. IMPRESSION: Mild bibasilar opacities, probably atelectasis.
[2022-07-01] MEDS ORDERED: HEPARIN SODIUM 1,000 UN/ML (10ML VL) IV PRN (18:58)
[2022-07-01] MEDS ORDERED: HEPARIN SODIUM 1,000 UN/ML (10ML VL) IV ONE (18:58)
[2022-07-01] MEDS ORDERED: NALOXONE 0.4 MG/ML 1 ML VIAL IV PRN (18:59)
[2022-07-01] MEDS ORDERED: SODIUM CHLORIDE 0.9% 1,000 ML IV SCH ×2 (19:00→22:00)
[2022-07-01] MEDS ORDERED: ALBUTEROL NEBULIZED 2.5 MG/3 ML INHALATION PRN (19:02)
--- NOTE | 2022-07-01 19:37 | US ---
EXAMINATION TYPE: US venous doppler duplex LE BI DATE OF EXAM: 07/01/2022 7:19 PM COMPARISON: 06/09/22 CLINICAL HISTORY: DVT suspected. DVT 06/09/22. Per nurse patient not on blood thinners. SIDE PERFORMED: Bilateral TECHNIQUE: The lower extremity deep venous system is examined utilizing real time linear array sonog jose with graded compression, doppler sonography and color-flow sonography. VESSELS IMAGED: Common Femoral Vein Deep Femoral Vein Greater Saphenous Vein * Femoral Vein Popliteal Vein Small Saphenous Vein * (* superficial vessels) Right Leg: Entire leg is clotted starting above the CFV and GSV junction. Veins not compressible, so me blood flow visualized in CFV. Pop vein limited due to patient not being able to move leg. Left Leg: Thrombus seen in CFV and above the CFV and GSV junction. Limited view of femoral vein mid and distal, but no blood flow seen. Pop vein limited due to patient not being able to move leg. IMPRESSION: Extensive DVT of the of the visualized right lower extremity. DVT of the left common femoral vein. Limited evaluation of the left SFV and popliteal vein, however a ppear thrombosed.
[2022-07-01] MEDS: HEPARIN SOD,PORK IN 0.45% NACL 25,000 UNIT in 0.45% NACL 1 250ML.BAG IV SCH (19:59)
[2022-07-01 20:14] LABS: INR 1.1 (<1.2); Partial Thromboplastin Time 22.4 sec (22.0-30.0); Prothrombin Time 11.5 sec (9.0-12.0)
[2022-07-01 20:47] LABS: HCT 36.2 % (34.0-46.0); HGB 11.9 gm/dL (11.4-16.0); Hypochromasia Slight; MCHC 32.8 g/dL (31.0-37.0); MCV 97.5 fL (80.0-100.0); Mean Platelet Volume 9.2; Platelet Count 163 k/uL (150-450); RBC 3.71 m/uL (3.80-5.40); RDW 14.2 % (11.5-15.5); WBC 12.3 k/uL (3.8-10.6)
[2022-07-01 20:59] LABS: Band Neutrophils % 27 %; Eosinophils # (M) 0.12 k/uL (0-0.7); Lymphocytes # (M) 0.37 k/uL (1.0-4.8); Metamyelocytes # (M) 0.74 k/uL (0); Metamyelocytes % 6 %; Monocytes # (M) 0.25 k/uL (0-1.0); Neutrophils % (M) 63 %; Nucleated Red Blood Cells 0 /100 WBC (0-0); Total Cells Counted 200
[2022-07-01 21:51] LABS: Glucose,Whole Blood 201 mg/dL (70-110)
[2022-07-01] MEDS: ACETAMINOPHEN TAB 325 MG TAB PO PRN (22:46)
[2022-07-02 02:33] LABS: HCT 36.2 % (34.0-46.0); HGB 11.3 gm/dL (11.4-16.0); Hypochromasia Marked; MCH 31.2 pg (25.0-35.0); MCHC 31.2 g/dL (31.0-37.0); MCV 99.9 fL (80.0-100.0); Mean Platelet Volume 9.1; Platelet Count 166 k/uL (150-450); RBC 3.62 m/uL (3.80-5.40); RDW 14.3 % (11.5-15.5)
[2022-07-02] MEDS ORDERED: SODIUM CHLORIDE 0.9% 500 ML 500 ML IV ONE ×2 (03:41→12:15)
[2022-07-02 04:44] LABS: Band Neutrophils % 33 %; Metamyelocytes # (M) 0.12 k/uL (0); Metamyelocytes % 1 %; Neutrophils % (M) 57 %; Nucleated Red Blood Cells 1 /100 WBC (0-0); Total Cells Counted 200
[2022-07-02 04:47] LABS: Lymphocytes # (M) 0.46 k/uL (1.0-4.8); Monocytes # (M) 0.81 k/uL (0-1.0); WBC 11.6 k/uL (3.8-10.6)
[2022-07-02] MEDS: SODIUM CHLORIDE 0.9% 250 ML IV SCH ×2 (04:48→04:49)
[2022-07-02] MEDS: SODIUM CHLORIDE 0.9% 1,000 ML IV SCH ×3 (04:48→19:03)
[2022-07-02 04:49] LABS: Anisocytosis (M) Present; Polychromasia Present; Toxic Vacuolation Present
[2022-07-02 06:13] LABS: Glucose,Whole Blood 168 mg/dL (70-110)
[2022-07-02 07:17] LABS: Glucose,Whole Blood 152 mg/dL (70-110)
[2022-07-02] MEDS: HEPARIN SOD,PORK IN 0.45% NACL 25,000 UNIT in 0.45% NACL 1 250ML.BAG IV SCH (08:54)
[2022-07-02] MEDS: ACETAMINOPHEN TAB 325 MG TAB PO PRN ×2 (08:57→19:00)
[2022-07-02] MEDS: NOREPINEPHRINE 4 MG in SODIUM CHLORIDE 0.9% 250 ML IV SCH ×4 (09:10→22:05)
[2022-07-02] MEDS ORDERED: PIPERACILLIN-TAZOBACTAM 3.375 GM in SODIUM CHLORIDE 0.9% 100 ML IVPB SCH (10:00)
[2022-07-02 10:16] LABS: Calcium 8.1 mg/dL (8.4-10.2); Potassium 4.4 mmol/L (3.5-5.1)
--- NOTE | 2022-07-02 10:44 | P.CONS ---
History of Present Illness - Reason for Consult Consult date: 07/02/22 wound care - History of Present Illness This is a 66-year-old patient being seen and ICU for nonhealing ulcerations to the right lower extremity posterior, the sacrum, and the lumbar back midline. Patient is a poor historian. Patient is a quadriplegic following a neck surgery. She does have a negative pressure wound VAC in place to her lumbar back. Unsure of the etiology of the ulceration to the back. Lumbar spine u lceration measures approximately 10 x 5 x 4 cm. There is no tunneling or undermining noted. The ulceration shows granulation to the wound bed fascia is exposed, minimal slough and nonviable tissue noted, minimal redness noted, no erythema or purulent drainage noted. Ulceration appears clean. The coccyx ulceration is a stage II pressure ulcer measuring approximately 1 x 1 x 0.1 cm with granulation seen throughout and no to minimal slough noted. Wound edges are attached to the wound base no tunneling or undermining noted. The right posterior ulceration is a pressure-related ulcer stage II with granulation seen throughout to the wound bed and minimal slough. Wound edges are attached to the wound base no tunneling or undermining noted. The ulceration measures approximately 1.5 x 0.2 x 0.1 cm. Review Of Systems: Constitutional: No fever, no chills, no night sweats. No weight change. No weakness, fatigue or lethargy. No daytime sleepiness. Integumentary:reports wounds, no lesions. No rash or pruritus. No unusual bruising. No change in hair or nails. Physical exam: General Appearance: Alert, cooperative, no distress, appears stated age. Skin: See HPI all other Skin color, texture, tugor normal, no rashes or lesions. Neurologic: Alert oriented x3 Assessment: 1. Surgical wound dehiscence 2. Nonhealing ulceration of back with muscle involvement without necrosis 3. Stage II pressure ulcer coccyx 4. Stage II pressure ulcer right ankle Plan: 1. Continue with the negative pressure wound VAC to the spine ulceration. With black phone 125 mm of continuous pressure. Change Tuesday and Tuesday. Obtain wound cultures with first dressing change. 2. Sacral/right lower extremity ulceration: Apply triad daily may cover as needed. Thank you for the consultation any questions contact the wound care center DNP note has been reviewed and discussed with Dr. Fuentes and the impression and plan of care has been directed as dictated. Past Medical History Past Medical History: Coronary Artery Disease (CAD), COPD, CVA/TIA, Diabetes Mellitus, Hypertension, Pulmonary Embolus (PE) Additional Past Medical History / Comment(s): depression. quadriplegia History of Any Multi-Drug Resistant Organisms: None Reported Past Surgical History: Unable to Obtain Past Anesthesia/Blood Transfusion Reactions: Unable to Obtain Past Psychological History: Anxiety, Depression Smoking Status: Unknown if ever smoked Past Alcohol Use History: None Reported Past Drug Use History: None Reported Medications and Allergies Home Medications Medication Instructions Recorded Confirmed Type Amitriptyline HCl [Elavil] 75 mg PO HS 06/04/22 07/01/22 History Atorvastatin [Lipitor] 20 mg PO HS 06/04/22 07/01/22 History Citalopram Hydrobromide 40 mg PO DAILY 06/04/22 07/01/22 History [Citalopram HBr] Docusate Sodium [Dok] 100 mg PO BID@08,199906/04/22 07/01/22 History Epoetin Galdino-Epbx [Retacrit] 3,000 units SQ MOWEFR@0800 06/04/22 07/01/22 History Famotidine 20 mg PO DAILY 06/04/22 07/01/22 History Gabapentin [Neurontin] 200 mg PO BID@0800,199906/04/22 07/01/22 History Glycopyrrolate 1 mg PO DAILY 06/04/22 07/01/22 History LORazepam [Ativan] 0.5 mg PO TID@0500,1300,209906/04/22 07/01/22 History methocarbamoL [Methocarbamol] 750 mg PO TID@0500,1300,209906/04/22 07/01/22 History polyethylene glycoL 3350 [Miralax] 17 gm PO DAILY 06/04/22 07/01/22 History Calcium Acetate [Phoslo] 667 mg PO TID@0500,1300,209907/01/22 07/01/22 History HYDROcodone/APAP 10-325MG [[place] 1 tab PO Q4HR PRN 07/01/22 07/01/22 History 10-325] Lacosamide [Vimpat] 150 mg PO BID@0800,2000 07/01/22 07/01/22 History Lactulose 20 gm PO TID@0800,1200,1800 07/01/22 07/01/22 History Allergies Allergy/AdvReac Type Severity Reaction Status Date / Time diazepam [From Valium] Allergy Intermediate Rash/Hives Verified 07/01/22 21:28 morphine Allergy Intermediate Rash/Hives Verified 07/01/22 21:28 phenytoin [From Dilantin] Allergy Intermediate Rash/Hives Verified 07/01/22 21:28 Physical Exam Vitals: Vital Signs Temp Pulse Pulse Resp BP BP Pulse Ox 07/02/22 08:29 92 L 07/02/22 08:00 103.8 F H 134 H 26 H 148/87 90 L 07/02/22 07:30 135 H 19 136/109 90 L 07/02/22 07:18 93 L 07/02/22 05:00 118/80 07/02/22 04:05 98.1 F 103/62 07/02/22 03:20 100.7 F H 121 H 28 H 78/42 96 07/02/22 00:55 98.9 F 07/01/22 22:45 101.0 F H 120 H 32 H 93/60 98 07/01/22 22:00 82/48 07/01/22 21:20 103.2 F H 125 H 26 H 74/42 94 L 07/01/22 20:54 115 H 17 98/52 98 07/01/22 20:00 129 H 07/01/22 19:47 125 H 97 07/01/22 19:42 125 H 17 117/68 99 07/01/22 15:30 20 07/01/22 15:21 102.6 F H 140 H 16 140/68 97 Intake and Output 07/01/22 07/02/22 07/02/22 22:59 06:59 14:59 Intake Total 972.469 241.304 Output Total 200 50 Balance 772.469 191.304 Intake: IV 125 Sodium Chloride 0.9% 1, 125 000 ml @ 125 mls/hr IV . Q8H [facility] Rx#:[id number] Intake, IV Titration 972.469 116.304 Amount Heparin Sod,Pork in 0.45% 122.469 114.576 NaCl 25,000 unit In 0.45 % NaCl 1 250ml.bag @ 18 UNITS/KG/HR 19.595 mls/hr IV .[id number] [facility] Rx#: [id number] Norepinephrine 4 mg In 1.728 Sodium Chloride 0.9% 250 ml @ 0.05 MCG/KG/MIN 20. 738 mls/hr IV .[id number] [facility] Rx#:[id number] Sodium Chloride 0.9% 1, 850 000 ml @ 100 mls/hr IV . Q10H [facility] Rx#:[id number] Sodium Chloride 0.9% 1, 0 000 ml @ 130 mls/hr IV . [id number] [facility] Rx#:[id number] Oral 0 Tube Feeding 0 Output: Urine 200 50 Other: Voiding Method Indwelling Catheter Indwelling Catheter # Bowel Movements 1 Weight 108.862 kg 108.862 kg Results CBC & Chem 7: 07/02/22 02:12 07/02/22 07:59 Labs: Abnormal Lab Results - Last 24 Hours (Table) 07/01/22 07/01/22 07/01/22 Range/Units 15:55 15:55 15:55 WBC (3.8-10.6) k/uL RBC (3.80-5.40) m/uL Hgb (11.4-16.0) gm/dL Neutrophils # (Manual) (1.3-7.7) k/uL Lymphocytes # (Manual) 0.46 L (1.0-4.8) k/uL Metamyelocytes # (Man) 0.23 H (0) k/uL Nucleated RBCs (0-0) /100 WBC APTT 20.9 L (22.0-30.0) sec D-Dimer 32.09 H (<0.60) mg/L FEU Chloride (98-107) mmol/L Carbon Dioxide 19 L (22-30) mmol/L BUN 68 H (7-17) mg/dL Creatinine 1.51 H (0.52-1.04) mg/dL Glucose 168 H (74-99) mg/dL POC Glucose (mg/dL) (70-110) mg/dL Calcium (8.4-10.2) mg/dL Magnesium 1.3 L (1.6-2.3) mg/dL Total Protein 6.2 L (6.3-8.2) g/dL Procalcitonin (0.02-0.09) ng/mL Urine Appearance (Clear) Urine Protein (Negative) Urine Ketones (Negative) Urine Blood (Negative) Ur Leukocyte Esterase (Negative) Urine RBC (0-5) /hpf Urine WBC (0-5) /hpf Urine WBC Clumps (None) /hpf Urine Bacteria (None) /hpf Urine Mucus (None) /hpf Urine Yeast (Budding) (None) /hpf 07/01/22 07/01/22 07/01/22 Range/Units 15:55 15:55 20:30 WBC 12.3 H (3.8-10.6) k/uL RBC 3.71 L (3.80-5.40) m/uL Hgb (11.4-16.0) gm/dL Neutrophils # (Manual) 11.00 H (1.3-7.7) k/uL Lymphocytes # (Manual) 0.37 L (1.0-4.8) k/uL Metamyelocytes # (Man) 0.74 H (0) k/uL Nucleated RBCs (0-0) /100 WBC APTT (22.0-30.0) sec D-Dimer (<0.60) mg/L FEU Chloride (98-107) mmol/L Carbon Dioxide (22-30) mmol/L BUN (7-17) mg/dL Creatinine (0.52-1.04) mg/dL Glucose (74-99) mg/dL POC Glucose (mg/dL) (70-110) mg/dL Calcium (8.4-10.2) mg/dL Magnesium (1.6-2.3) mg/dL Total Protein (6.3-8.2) g/dL Procalcitonin 1.62 H (0.02-0.09) ng/mL Urine Appearance Turbid H (Clear) Urine Protein 1+ H (Negative) Urine Ketones Trace H (Negative) Urine Blood Small H (Negative) Ur Leukocyte Esterase Large H (Negative) Urine RBC 51 H (0-5) /hpf Urine WBC 81 H (0-5) /hpf Urine WBC Clumps Occasional H (None) /hpf Urine Bacteria Occasional H (None) /hpf Urine Mucus Rare H (None) /hpf Urine Yeast (Budding) Many H (None) /hpf 0907/02/22 07/02/22 Range/Units 21:49 00:40 02:12 WBC 11.6 H (3.8-10.6) k/uL RBC 3.62 L (3.80-5.40) m/uL Hgb 11.3 L (11.4-16.0) gm/dL Neutrophils # (Manual) 10.40 H (1.3-7.7) k/uL Lymphocytes # (Manual) 0.46 L (1.0-4.8) k/uL Metamyelocytes # (Man) 0.12 H (0) k/uL Nucleated RBCs 1 H (0-0) /100 WBC APTT 162.0 H* (22.0-30.0) sec D-Dimer (<0.60) mg/L FEU Chloride (98-107) mmol/L Carbon Dioxide (22-30) mmol/L BUN (7-17) mg/dL Creatinine (0.52-1.04) mg/dL Glucose (74-99) mg/dL POC Glucose (mg/dL) 201 H (70-110) mg/dL Calcium (8.4-10.2) mg/dL Magnesium (1.6-2.3) mg/dL Total Protein (6.3-8.2) g/dL Procalcitonin (0.02-0.09) ng/mL Urine Appearance (Clear) Urine Protein (Negative) Urine Ketones (Negative) Urine Blood (Negative) Ur Leukocyte Esterase (Negative) Urine RBC (0-5) /hpf Urine WBC (0-5) /hpf Urine WBC Clumps (None) /hpf Urine Bacteria (None) /hpf Urine Mucus (None) /hpf Urine Yeast (Budding) (None) /hpf 07/02/22 07/02/22 07/02/22 Range/Units 06:12 07:15 07:59 WBC (3.8-10.6) k/uL RBC (3.80-5.40) m/uL Hgb (11.4-16.0) gm/dL Neutrophils # (Manual) (1.3-7.7) k/uL Lymphocytes # (Manual) (1.0-4.8) k/uL Metamyelocytes # (Man) (0) k/uL Nucleated RBCs (0-0) /100 WBC APTT (22.0-30.0) sec D-Dimer (<0.60) mg/L FEU Chloride 108 H (98-107) mmol/L Carbon Dioxide 17 L (22-30) mmol/L BUN 75 H (7-17) mg/dL Creatinine 2.04 H (0.52-1.04) mg/dL Glucose 148 H (74-99) mg/dL POC Glucose (mg/dL) 168 H 152 H (70-110) mg/dL Calcium 8.1 L (8.4-10.2) mg/dL Magnesium (1.6-2.3) mg/dL Total Protein (6.3-8.2) g/dL Procalcitonin (0.02-0.09) ng/mL Urine Appearance (Clear) Urine Protein (Negative) Urine Ketones (Negative) Urine Blood (Negative) Ur Leukocyte Esterase (Negative) Urine RBC (0-5) /hpf Urine WBC (0-5) /hpf Urine WBC Clumps (None) /hpf Urine Bacteria (None) /hpf Urine Mucus (None) /hpf Urine Yeast (Budding) (None) /hpf 07/02/22 Range/Units 08:10 WBC (3.8-10.6) k/uL RBC (3.80-5.40) m/uL Hgb (11.4-16.0) gm/dL Neutrophils # (Manual) (1.3-7.7) k/uL Lymphocytes # (Manual) (1.0-4.8) k/uL Metamyelocytes # (Man) (0) k/uL Nucleated RBCs (0-0) /100 WBC APTT 108.3 H* (22.0-30.0) sec D-Dimer (<0.60) mg/L FEU Chloride (98-107) mmol/L Carbon Dioxide (22-30) mmol/L BUN (7-17) mg/dL Creatinine (0.52-1.04) mg/dL Glucose (74-99) mg/dL POC Glucose (mg/dL) (70-110) mg/dL Calcium (8.4-10.2) mg/dL Magnesium (1.6-2.3) mg/dL Total Protein (6.3-8.2) g/dL Procalcitonin (0.02-0.09) ng/mL Urine Appearance (Clear) Urine Protein (Negative) Urine Ketones (Negative) Urine Blood (Negative) Ur Leukocyte Esterase (Negative) Urine RBC (0-5) /hpf Urine WBC (0-5) /hpf Urine WBC Clumps (None) /hpf Urine Bacteria (None) /hpf Urine Mucus (None) /hpf Urine Yeast (Budding) (None) /hpf Microbiology - Last 24 Hours (Table) 07/01/22 15:55 Urine Culture - Preliminary Urine,Voided Assessment and Plan (1) Disruption of external operation (surgical) wound, not elsewhere classified, initial encounter Current Visit: Yes Status: Acute Code(s): T81.31XA - DISRUPTION OF EXTERNAL OPERATION (SURGICAL) WOUND, NEC, INIT SNOMED Code(s): 944013564145124 (2) Stage II pressure ulcer of sacral region Current Visit: Yes Status: Acute Code(s): L89.152 - PRESSURE ULCER OF SACRAL REGION, STAGE 2 SNOMED Code(s): 10368177762324780 (3) Stage II pressure ulcer of right ankle Current Visit: Yes Status: Acute Code(s): L89.512 - PRESSURE ULCER OF RIGHT ANKLE, STAGE 2 SNOMED Code(s): 85364429777080 (4) 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
[2022-07-02 12:14] VITALS: BMI 35.4
[2022-07-02] MEDS ORDERED: SODIUM BICARB 8.4% 50 ML SYR (1 MEQ/ML) IV STA (12:15)
--- NOTE | 2022-07-02 12:17 | P.NPCON ---
History of Present Illness - Reason for Consult acute renal failure, chronic renal failure - History of Present Illness Reason for consultation: Acute kidney injury on chronic kidney disease History of present illness: Patient is a 66-year-old female seen in consultation for acute kidney injury on chronic kidney disease. Patient's creatinine this admission was 1.5 and is up to 2.04 today. In May 2022 her creatinine was in the range of 3.28-4.42. Prior to that in April 2022 her creatinine was 2.2 and last April in 2020 was 2.9. According to her family member, patient has chronic kidney disease and did require hemodialysis for about one month last year. Subsequently she recovered kidney function and remains off dialysis. Patient resides at [facility] and presented to the hospital with cough and shortness of breath. Patient is a quadriplegic due to spinal cord injury. This morning patient became more short of breath and a team was called. She was recently brought to the ICU. She is currently on Levophed. She has received 3 L of normal saline since last night. Patient is currently oliguric. Patient is awake and alert. She denies use of nonsteroidals. She states she is a borderline diabetic. She is on normal saline at 1 25 mL now for maintenance fluids. She is also on heparin drip for DVTs. Patient has a PEG tube and to present to be started today. She is currently on 11 L nasal cannula. Vital signs - blood pressure in the lower side. Tachycardic. On vasopressor support. General: Awake. No acute distress. HEENT: Cervical collar noted. LUNGS: Breath sounds decreased. HEART: Tachycardic. ABDOMEN: Soft, no distention. PEG tube noted. EXTREMITITES: No edema. Past Medical History Past Medical History: Coronary Artery Disease (CAD), COPD, CVA/TIA, Diabetes Mellitus, Hypertension, Pulmonary Embolus (PE) Additional Past Medical History / Comment(s): depression. quadriplegia History of Any Multi-Drug Resistant Organisms: None Reported Past Surgical History: Unable to Obtain Past Anesthesia/Blood Transfusion Reactions: Unable to Obtain Past Psychological History: Anxiety, Depression Smoking Status: Unknown if ever smoked Past Alcohol Use History: None Reported Past Drug Use History: None Reported Medications and Allergies Home Medications Medication Instructions Recorded Confirmed Type Amitriptyline HCl [Elavil] 75 mg PO HS 06/04/22 07/01/22 History Atorvastatin [Lipitor] 20 mg PO HS 06/04/22 07/01/22 History Citalopram Hydrobromide 40 mg PO DAILY 06/04/22 07/01/22 History [Citalopram HBr] Docusate Sodium [Dok] 100 mg PO BID@799,199906/04/22 07/01/22 History Epoetin Galdino-Epbx [Retacrit] 3,000 units SQ MOWEFR@79906/04/22 07/01/22 History Famotidine 20 mg PO DAILY 06/04/22 07/01/22 History Gabapentin [Neurontin] 200 mg PO BID@799,199906/04/22 07/01/22 History Glycopyrrolate 1 mg PO DAILY 06/04/22 07/01/22 History LORazepam [Ativan] 0.5 mg PO TID@0500,1300,2100 06/04/22 07/01/22 History methocarbamoL [Methocarbamol] 750 mg PO TID@0500,1300,2100 06/04/22 07/01/22 History polyethylene glycoL 3350 [Miralax] 17 gm PO DAILY 06/04/22 07/01/22 History Calcium Acetate [Phoslo] 667 mg PO TID@0500,1300,2100 07/01/22 07/01/22 History HYDROcodone/APAP 10-325MG [[place] 1 tab PO Q4HR PRN 07/01/22 07/01/22 History 10-325] Lacosamide [Vimpat] 150 mg PO BID@799,199907/01/22 07/01/22 History Lactulose 20 gm PO TID@0800,1200,1800 07/01/22 07/01/22 History Allergies Allergy/AdvReac Type Severity Reaction Status Date / Time diazepam [From Valium] Allergy Intermediate Rash/Hives Verified 07/01/22 21:28 morphine Allergy Intermediate Rash/Hives Verified 07/01/22 21:28 phenytoin [From Dilantin] Allergy Intermediate Rash/Hives Verified 07/01/22 21:28 Physical Exam Vitals: Vital Signs Temp Pulse Pulse Resp BP BP Pulse Ox 07/02/22 11:00 138 H 15 89/40 07/02/22 10:30 138 H 24 82/35 07/02/22 10:00 137 H 25 H 113/61 86 L 07/02/22 09:30 135 H 23 99/56 89 L 07/02/22 09:00 133 H 28 H 91/46 93 L 07/02/22 08:30 134 H 24 72/30 89 L 07/02/22 08:29 92 L 07/02/22 08:00 103.8 F H 134 H 26 H 148/87 90 L 07/02/22 07:30 135 H 19 136/109 90 L 07/02/22 07:18 93 L 07/02/22 05:00 118/80 07/02/22 04:05 98.1 F 103/62 07/02/22 03:20 100.7 F H 121 H 28 H 78/42 96 07/02/22 00:55 98.9 F 07/01/22 22:45 101.0 F H 120 H 32 H 93/60 98 07/01/22 22:00 82/48 07/01/22 21:20 103.2 F H 125 H 26 H 74/42 94 L 07/01/22 20:54 115 H 17 98/52 98 07/01/22 20:00 129 H 07/01/22 19:47 125 H 97 07/01/22 19:42 125 H 17 117/68 99 07/01/22 15:30 20 07/01/22 15:21 102.6 F H 140 H 16 140/68 97 Intake and Output 07/01/22 07/02/22 07/02/22 22:59 06:59 14:59 Intake Total 972.469 292.114 Output Total 200 50 Balance 772.469 242.114 Intake: IV 125 Sodium Chloride 0.9% 1, 125 000 ml @ 125 mls/hr IV . Q8H [facility] Rx#:[id number] Intake, IV Titration 972.469 167.114 Amount Heparin Sod,Pork in 0.45% 122.469 114.576 NaCl 25,000 unit In 0.45 % NaCl 1 250ml.bag @ 18 UNITS/KG/HR 19.595 mls/hr IV .[id number] [facility] Rx#: [id number] Norepinephrine 4 mg In 52.538 Sodium Chloride 0.9% 250 ml @ 0.05 MCG/KG/MIN 20. 738 mls/hr IV [id number] Rx#:[id number] Sodium Chloride 0.9% 1, 850 000 ml @ 100 mls/hr IV . Q10H [facility] Rx#:[id number] Sodium Chloride 0.9% 1, 0 000 ml @ 130 mls/hr IV . Q7H42M [facility] Rx#:[id number] Oral 0 Tube Feeding 0 Output: Urine 200 50 Other: Voiding Method Indwelling Catheter Indwelling Catheter # Bowel Movements 1 Weight 108.862 kg 108.862 kg Results - Lab Results Most recent lab results Calcium 8.1 mg/dL (8.4-10.2) L 07/02/22 07:59 Magnesium 1.3 mg/dL (1.6-2.3) L 07/01/22 15:55 07/02/22 02:12 07/02/22 07:59 Assessment and Plan Plan: Assessment: 1. Acute kidney injury secondary to ATN secondary to hypotension/septic shock. Creatinine was 1.51 on admission and is 2.04 today. Oliguric. 2. Chronic kidney disease. Need to establish baseline renal function. Patient's creatinine in May 2022 range from 3.28-4.42. In April 2022 was 2.2. 3. Septic shock on Levophed and antibiotics. Patient has multiple ulcerations and also spine ulceration with wound VAC. 4. Metabolic acidosis secondary to acute kidney injury and IV fluids. 5. Quadriplegia from neck/spine injury. 6. Chronic kidney disease mineral bone disease maintained on PhosLo. 7. Lower extremity DVTs on IV heparin. 8. Hypomagnesemia from poor intake. Plan: Maintain IV fluids. 3 A sodium bicarb IV push now. Wean Levophed. Will give another 500 mL bolus of normal saline. Check phosphorus level. Check magnesium level now and replace as needed. Lasix 80 mg IV once this afternoon if no improvement in urine output. Okay to place PICC line dominant arm. Discussed with patient potential need for renal present therapy if no improvement in renal function and urine output. Patient is refusing any form of renal replacement therapy at this time. Continue to assess on daily basis. Thank you for the consultation. I will continue to follow the patient with you during her hospital stay.
[2022-07-02] MEDS: GABAPENTIN 100 MG CAP PO SCH ×2 (12:35→20:52)
[2022-07-02] MEDS: DOCUSATE 100 MG CAP PO SCH ×2 (12:35→20:40)
[2022-07-02] MEDS: LACOSAMIDE 150 MG TABLET PO SCH ×2 (12:36→20:52)
[2022-07-02] MEDS: CALCIUM ACETATE 667 MG TAB PO SCH ×2 (12:36→20:40)
[2022-07-02] MEDS: HYDROPHILIC CREAM 180 GM TUBE TOPICAL SCH (12:37)
[2022-07-02] MEDS: polyethylene glycoL 3350 17 GM POWD.PACK PO SCH (12:37)
[2022-07-02 12:47] LABS: Magnesium 1.3 mg/dL (1.6-2.3); Phosphorus 3.2 mg/dL (2.5-4.5)
--- NOTE | 2022-07-02 14:26 | P.CNPUL ---
History of Present Illness Consult date: 07/02/22 Reason for consult: dyspnea History of present illness: 66-year-old female patient, very poor historian, quadriplegic related to previous surgery to the neck that was complicated by development of quadriplegia. The patient is currently bedridden. She is nonverbal. She has a chronic sacral wound with a negative pressure wound VAC in place in her lumbar area. The patient has had a previous tracheostomy that was subsequently decannulated. The patient has a permanent active place for enteral feeding and nutritional support. The patient presented to the hospital because of worsening shortness of breath and the patient was in a ECF location and she was brought into the hospital because of increased dyspnea cough and congestion. [facility] any significant history at this point in time. Investigation was done and the patient was found to have a white cell count of 12.3 with a hemoglobin 11.9 and a platelet count of 163. The coagulation profile was normal. D-dimer was very much elevated at 32. Based on that, the patient was given Doppler of the lower extremity and the patient was found to have bilateral DVTs, the right lower extremity showed a clot above the common femoral vein and the entire leg venous system was involved. Left lower extremity showed a positive DVT in the common femoral and popliteal. The patient accordingly was started on IV heparin. Rest of the blood work showed a creatinine of 1.5 consistent with chronic kidney disease, BUN of 68, sodium of 139 and a potassium level of 4.4 and a serum bicarb of 19. The anion gap was 18. The patient had a abnormal UA with 51 RBCs and 81 WBCs along with clumps, and the pro-calcitonin level was at 1.62 consistent with an underlying bacterial infection. The liver function tests were essentially within normal limits. The proBNP level was 2890 and a troponin was at 0.03. COVID 19 testing was negative. Influenza screen was negative. The patient was given a total of 3 L of IV fluids in the form of normal saline and the patient is currently on normal saline at the rate of 1 25 mL an hour. The patient was on a medical floor the patient became hypotensive she got transferred to the ICU where she was started on norepinephrine and currently norepinephrine is running at 0.1 mcg/kg per minute. The patient's condition was consistent with sepsis. The patient was febrile with a T-max of 103.8 and the patient was quite hypoxic with pulse ox of 80% and she was placed on 4 L approximately nasal cannula. Subsequently, the FiO2 was brought up to 11 L per minute nasal cannula to maintain a saturation above 90%. Review of Systems ROS unobtainable: due to mental status Past Medical History Past Medical History: Coronary Artery Disease (CAD), COPD, CVA/TIA, Diabetes Mellitus, Hypertension, Pulmonary Embolus (PE), Renal Disease (chronic stage III kidney disease) Additional Past Medical History / Comment(s): depression. quadriplegia History of Any Multi-Drug Resistant Organisms: None Reported Past Surgical History: Unable to Obtain Past Anesthesia/Blood Transfusion Reactions: Unable to Obtain Past Psychological History: Anxiety, Depression Smoking Status: Unknown if ever smoked Past Alcohol Use History: None Reported Past Drug Use History: None Reported Medications and Allergies Home Medications Medication Instructions Recorded Confirmed Type Amitriptyline HCl [Elavil] 75 mg PO HS 06/04/22 07/01/22 History Atorvastatin [Lipitor] 20 mg PO HS 06/04/22 07/01/22 History Citalopram Hydrobromide 40 mg PO DAILY 06/04/22 07/01/22 History [Citalopram HBr] Docusate Sodium [Dok] 100 mg PO BID@799,199906/04/22 07/01/22 History Epoetin Galdino-Epbx [Retacrit] 3,000 units SQ MOWEFR@79906/04/22 07/01/22 History Famotidine 20 mg PO DAILY 06/04/22 07/01/22 History Gabapentin [Neurontin] 200 mg PO BID@799,199906/04/22 07/01/22 History Glycopyrrolate 1 mg PO DAILY 06/04/22 07/01/22 History LORazepam [Ativan] 0.5 mg PO TID@0500,1300,209906/04/22 07/01/22 History methocarbamoL [Methocarbamol] 750 mg PO TID@0500,1300,209906/04/22 07/01/22 History polyethylene glycoL 3350 [Miralax] 17 gm PO DAILY 06/04/22 07/01/22 History Calcium Acetate [Phoslo] 667 mg PO TID@0500,1300,209907/01/22 07/01/22 History HYDROcodone/APAP 10-325MG [[place] 1 tab PO Q4HR PRN 07/01/22 07/01/22 History 10-325] Lacosamide [Vimpat] 150 mg PO BID@0800,2000 07/01/22 07/01/22 History Lactulose 20 gm PO TID@0800,1200,1800 07/01/22 07/01/22 History Allergies Allergy/AdvReac Type Severity Reaction Status Date / Time diazepam [From Valium] Allergy Intermediate Rash/Hives Verified 07/01/22 21:28 morphine Allergy Intermediate Rash/Hives Verified 07/01/22 21:28 phenytoin [From Dilantin] Allergy Intermediate Rash/Hives Verified 07/01/22 21:2 8 Physical Exam Vitals: Vital Signs Temp Pulse Pulse Resp BP BP Pulse Ox 07/02/22 12:15 92 L 07/02/22 11:00 138 H 15 89/40 07/02/22 10:30 138 H 24 82/35 07/02/22 10:00 137 H 25 H 113/61 86 L 07/02/22 09:30 135 H 23 99/56 89 L 07/02/22 09:00 133 H 28 H 91/46 93 L 07/02/22 08:30 134 H 24 72/30 89 L 07/02/22 08:29 92 L 07/02/22 08:00 103.8 F H 134 H 26 H 148/87 90 L 07/02/22 07:30 135 H 19 136/109 90 L 07/02/22 07:18 93 L 07/02/22 05:00 118/80 07/02/22 04:05 98.1 F 103/62 07/02/22 03:20 100.7 F H 121 H 28 H 78/42 96 07/02/22 00:55 98.9 F 07/01/22 22:45 101.0 F H 120 H 32 H 93/60 98 07/01/22 22:00 82/48 07/01/22 21:20 103.2 F H 125 H 26 H 74/42 94 L 07/01/22 20:54 115 H 17 98/52 98 07/01/22 20:00 129 H 07/01/22 19:47 125 H 97 07/01/22 19:42 125 H 17 117/68 99 07/01/22 15:30 20 07/01/22 15:21 102.6 F H 140 H 16 140/68 97 Intake and Output 07/01/22 07/02/22 07/02/22 22:59 06:59 14:59 Intake Total 972.469 384.675 Output Total 200 50 Balance 772.469 334.675 Intake: IV 125 Sodium Chloride 0.9% 1, 125 000 ml @ 125 mls/hr IV . Q8H [facility] Rx#:[id number] Intake, IV Titration 972.469 259.675 Amount Heparin Sod,Pork in 0.45% 122.469 114.576 NaCl 25,000 unit In 0.45 % NaCl 1 250ml.bag @ 18 UNITS/KG/HR 19.595 mls/hr IV .[id number] [facility] Rx#: [id number] Norepinephrine 4 mg In 145.099 Sodium Chloride 0.9% 250 ml @ 0.05 MCG/KG/MIN 20. 738 mls/hr IV .[id number] [facility] Rx#:[id number] Sodium Chloride 0.9% 1, 850 000 ml @ 100 mls/hr IV . Q10H [facility] Rx#:[id number] Sodium Chloride 0.9% 1, 0 000 ml @ 130 mls/hr IV . [id number] [facility] Rx#:[id number] Oral 0 Tube Feeding 0 Output: Urine 200 50 Other: Voiding Method Indwelling Catheter Indwelling Catheter # Bowel Movements 1 Weight 108.862 kg 108.862 kg 108.862 kg GENERAL EXAM: Alert, very pleasant, 66-year-old female, 11 L of oxygen pulse ox 92% comfortable in no apparent distress.the patient is currently wearing a hard neck collar HEAD: Normocephalic/atraumatic. EYES: Normal reaction of pupils, equal size. Conjunctiva pink, sclera white. NOSE: Clear with pink turbinates. THROAT: No erythema or exudates. NECK: No masses, no JVD, no thyroid enlargement, no adenopathy. CHEST: No chest wall deformity. Symmetrical expansion. LUNGS: Equal air entry with no crackles, wheeze, rhonchi or dullness.breath sounds are diminished bilaterally CVS: Regular rate and rhythm, normal S1 and S2, no gallops, no murmurs, no rubs ABDOMEN: Soft, nontender. No hepatosplenomegaly, normal bowel sounds, no guarding or rigidity. EXTREMITIES: No clubbing, no edema, no cyanosis, 2+ pulses and upper and lower extremities. MUSCULOSKELETAL: Muscle atrophy in all 4 extremities along with contractures and weakness SPINE: No scoliosis or deformity SKIN: No rashes, the patient has a wound VAC to her lumbar area for an underlying chronic wound CENTRAL NERVOUS SYSTEM: patient is unable to communicate at this point in time No focal deficits, tone is normal in all 4 extremities. PSYCHIATRIC: unable to perform Results - Laboratory Findings CBC and BMP: 07/02/22 02:12 07/02/22 07:59 PT/INR, D-dimer PT 11.5 sec (9.0-12.0) 07/01/22 20:07 INR 1.1 (<1.2) 07/01/22 20:07 D-Dimer 32.09 mg/L FEU (<0.60) H 07/01/22 15:55 Abnormal lab findings: Abnormal Labs 07/01/22 07/01/22 07/01/22 15:55 15:55 15:55 WBC RBC Hgb Neutrophils # (Manual) Lymphocytes # (Manual) 0.46 L Metamyelocytes # (Man) 0.23 H Nucleated RBCs APTT 20.9 L D-Dimer 32.09 H Chloride Carbon Dioxide 19 L BUN 68 H Creatinine 1.51 H Glucose 168 H POC Glucose (mg/dL) Calcium Magnesium 1.3 L Total Protein 6.2 L Procalcitonin Urine Appearance Urine Protein Urine Ketones Urine Blood Ur Leukocyte Esterase Urine RBC Urine WBC Urine WBC Clumps Urine Bacteria Urine Mucus Urine Yeast (Budding) 07/01/22 07/01/22 07/01/22 15:55 15:55 20:30 WBC 12.3 H RBC 3.71 L Hgb Neutrophils # (Manual) 11.00 H Lymphocytes # (Manual) 0.37 L Metamyelocytes # (Man) 0.74 H Nucleated RBCs APTT D-Dimer Chloride Carbon Dioxide BUN Creatinine Glucose POC Glucose (mg/dL) Calcium Magnesium Total Protein Procalcitonin 1.62 H Urine Appearance Turbid H Urine Protein 1+ H Urine Ketones Trace H Urine Blood Small H Ur Leukocyte Esterase Large H Urine RBC 51 H Urine WBC 81 H Urine WBC Clumps Occasional H Urine Bacteria Occasional H Urine Mucus Rare H Urine Yeast (Budding) Many H 07/01/22 07/02/22 07/02/22 21:49 00:40 02:12 WBC 11.6 H RBC 3.62 L Hgb 11.3 L Neutrophils # (Manual) 10.40 H Lymphocytes # (Manual) 0.46 L Metamyelocytes # (Man) 0.12 H Nucleated RBCs 1 H APTT 162.0 H* D-Dimer Chloride Carbon Dioxide BUN Creatinine Glucose POC Glucose (mg/dL) 201 H Calcium Magnesium Total Protein Procalcitonin Urine Appearance Urine Protein Urine Ketones Urine Blood Ur Leukocyte Esterase Urine RBC Urine WBC Urine WBC Clumps Urine Bacteria Urine Mucus Urine Yeast (Budding) 07/02/22 07/02/22 07/02/22 06:12 07:15 07:59 WBC RBC Hgb Neutrophils # (Manual) Lymphocytes # (Manual) Metamyelocytes # (Man) Nucleated RBCs APTT D-Dimer Chloride 108 H Carbon Dioxide 17 L BUN 75 H Creatinine 2.04 H Glucose 148 H POC Glucose (mg/dL) 168 H 152 H Calcium 8.1 L Magnesium Total Protein Procalcitonin Urine Appearance Urine Protein Urine Ketones Urine Blood Ur Leukocyte Esterase Urine RBC Urine WBC Urine WBC Clumps Urine Bacteria Urine Mucus Urine Yeast (Budding) 07/02/22 07/02/22 07:59 08:10 WBC RBC Hgb Neutrophils # (Manual) Lymphocytes # (Manual) Metamyelocytes # (Man) Nucleated RBCs APTT 108.3 H* D-Dimer Chloride Carbon Dioxide BUN Creatinine Glucose POC Glucose (mg/dL) Calcium Magnesium 1.3 L Total Protein Procalcitonin Urine Appearance Urine Protein Urine Ketones Urine Blood Ur Leukocyte Esterase Urine RBC Urine WBC Urine WBC Clumps Urine Bacteria Urine Mucus Urine Yeast (Budding) - Diagnostic Findings Chest x-ray: image reviewed Assessment and Plan Plan: acute sepsis, likely a urinary source. Other sources such as lungs or wound infection are palpable less likely. The patient's pro-calcitonin level is elevated consistent with bacterial infection and the patient is currently hypotensive on pressors for hemodynamic support and the patient will be started on broad-spectrum antibiotics. Acute hypotension likely secondary to sepsis, urinary total of 3 L of IV fluid currently on normal saline at rate of 125 mL in addition to pressors acute hypoxic respiratory failure secondary to above. Chest x-rays revealing atelectatic changes in lung bases Mild leukocytosis Chronic stage III kidney disease Bilateral DVTs of the lower eczematous currently on IV heparin quadriplegia related to a previous C-spine surgery, the patient is nonambulatory and bedridden. The patient undergone previous cervical spine surgery thank you for enteral feeding and nutritional support Chronic anxiety/depression Diabetes mellitus type 2, not receiving any treatment on an outpatient basis Diabetic peripheral neuropathy Previous history of UTIs Chronic dysphagia and the patient receives enteral feeding for nutritional support. The patient has neck injury due to a cervical spine surgery surgical wound dehiscence with nonhealing ulceration of that and muscle in volvement without necrosis and the patient has a stage II pressure ulcer in the coccyx and the right ankle. history of seizure activity currently on Vimpat plan continue titrating the FiO2 to maintain a saturation above 90%, currently at 11 L IV fluids with normal saline at the rate of 125 mL an hour IV norepinephrine infusion for hemodynamic support Blood culture and urine culture Pro-calcitonin level is elevated Give the patient IV Zosyn Continued IV heparin regarding bilateral lower extremity DVTs Resume all medications Resume wound VAC services Enteral feeding for nutritional support via PEG tube Patient is quite debilitated with a DNR/DNI CODE STATUS We'll optimize her sepsis and hypotension and will continue to follow. For now the patient's pressor dependent and the patient will be kept in the intensive care unit for now. Time with Patient: Greater than 30
--- NOTE | 2022-07-02 16:35 | P.CONS ---
History of Present Illness - Reason for Consult Consult date: 07/02/22 Wound evaluation Requesting physician: Rod Goldstein - Chief Complaint Shortness of breath x 1 day - History of Present Illness Patient is a 66-year-old female with complicated past medical history developing Paraplegia after cervical spine surgery and the patient also have a lumbar surgical site infection with osteomyelitis culture positive for Pseudomonas patient was recently admitted at this facility and the patient was noted to have dehiscence of her lumbar wound follow the patient was transferred back to [facility] main patient was evaluated by her surgeon did have I&D but no cultures and local wound care has been with a wound VAC patient was evaluated by infectious disease services at [facility] and the patient was switched over from IV cefepime to oral Cipro with the patient was currently receiving at the retirement. Patient has been sent to the ER from a local retirement yesterday afternoon for evaluation of increasing shortness of breath that apparently has been getting worse for a day before presentation to the hospital patient also noted to be febrile with a temperature of 103 F, the patient was hypoxic with a need for supplemental oxygen currently on 15 L high flow oxygen, patient was also tachycardic did have a white count of 12.3 with a left shift D-dimer was elevated did have elevated BUN to creatinine as well as elevated procalcitonin urine has been positive COVID and influenza testing was negative patient did have a chest x-ray mild bibasilar opacity patient did have a venous Doppler extensive DVT of the right lower extremity and left common femoral vein patient has been admitted to ICU she was started on Zosyn infectious disease was consulted for further management of antibiotic therapy most information has been obtained from review the chart and talking to nursing staff as the patient cannot provide any history Review of Systems Positive points has been mentioned in HPI complete review could not be obtained because of his underlying mental status Past Medical History Past Medical History: Coronary Artery Disease (CAD), COPD, CVA/TIA, Diabetes Mellitus, Hypertension, Pulmonary Embolus (PE) Additional Past Medical History / Comment(s): depression. quadriplegia History of Any Multi-Drug Resistant Organisms: None Reported Past Surgical History: Unable to Obtain Past Anesthesia/Blood Transfusion Reactions: Unable to Obtain Past Psychological History: Anxiety, Depression Smoking Status: Unknown if ever smoked Past Alcohol Use History: None Reported Past Drug Use History: None Reported Medications and Allergies Home Medications Medication Instructions Recorded Confirmed Type Amitriptyline HCl [Elavil] 75 mg PO HS 06/04/22 07/01/22 History Atorvastatin [Lipitor] 20 mg PO HS 06/04/22 07/01/22 History Citalopram Hydrobromide 40 mg PO DAILY 06/04/22 07/01/22 History [Citalopram HBr] Docusate Sodium [Dok] 100 mg PO BID@799,199906/04/22 07/01/22 History Epoetin Galdino-Epbx [Retacrit] 3,000 units SQ MOWEFR@79906/04/22 07/01/22 History Famotidine 20 mg PO DAILY 06/04/22 07/01/22 History Gabapentin [Neurontin] 200 mg PO BID@799,199906/04/22 07/01/22 History Glycopyrrolate 1 mg PO DAILY 06/04/22 07/01/22 History LORazepam [Ativan] 0.5 mg PO TID@0500,1300,209906/04/22 07/01/22 History methocarbamoL [Methocarbamol] 750 mg PO TID@0500,1300,2100 06/04/22 07/01/22 History polyethylene glycoL 3350 [Miralax] 17 gm PO DAILY 06/04/22 07/01/22 History Calcium Acetate [Phoslo] 667 mg PO TID@0500,1300,2100 07/01/22 07/01/22 History HYDROcodone/APAP 10-325MG [[place] 1 tab PO Q4HR PRN 07/01/22 07/01/22 History 10-325] Lacosamide [Vimpat] 150 mg PO BID@0800,199907/01/22 07/01/22 History Lactulose 20 gm PO TID@0800,1200,1800 07/01/22 07/01/22 History Allergies Allergy/AdvReac Type Severity Reaction Status Date / Time diazepam [From Valium] Allergy Intermediate Rash/Hives Verified 07/01/22 21:28 morphine Allergy Intermediate Rash/Hives Verified 07/01/22 21:28 phenytoin [From Dilantin] Allergy Intermediate Rash/Hives Verified 07/01/22 21:28 Physical Exam Vitals: Vital Signs Temp Pulse Pulse Resp BP BP Pulse Ox 07/02/22 11:00 138 H 15 89/40 07/02/22 10:30 138 H 24 82/35 07/02/22 10:00 137 H 25 H 113/61 86 L 07/02/22 09:30 135 H 23 99/56 89 L 07/02/22 09:00 133 H 28 H 91/46 93 L 07/02/22 08:30 134 H 24 72/30 89 L 07/02/22 08:29 92 L 07/02/22 08:00 103.8 F H 134 H 26 H 148/87 90 L 07/02/22 07:30 135 H 19 136/109 90 L 07/02/22 07:18 93 L 07/02/22 05:00 118/80 07/02/22 04:05 98.1 F 103/62 07/02/22 03:20 100.7 F H 121 H 28 H 78/42 96 07/02/22 00:55 98.9 F 07/01/22 22:45 101.0 F H 120 H 32 H 93/60 98 07/01/22 22:00 82/48 07/01/22 21:20 103.2 F H 125 H 26 H 74/42 94 L 07/01/22 20:54 115 H 17 98/52 98 07/01/22 20:00 129 H 07/01/22 19:47 125 H 97 07/01/22 19:42 125 H 17 117/68 99 07/01/22 15:30 20 07/01/22 15:21 102.6 F H 140 H 16 140/68 97 Intake and Output 07/01/22 07/02/22 07/02/22 22:59 06:59 14:59 Intake Total 972.469 292.114 Output Total 200 50 Balance 772.469 242.114 Intake: IV 125 Sodium Chloride 0.9% 1, 125 000 ml @ 125 mls/hr IV . Q8H [facility] Rx#:[id number] Intake, IV Titration 972.469 167.114 Amount Heparin Sod,Pork in 0.45% 122.469 114.576 NaCl 25,000 unit In 0.45 % NaCl 1 250ml.bag @ 18 UNITS/KG/HR 19.595 mls/hr IV .[id number] [facility] Rx#: [id number] Norepinephrine 4 mg In 52.538 Sodium Chloride 0.9% 250 ml @ 0.05 MCG/KG/MIN 20. 738 mls/hr IV .[id number] [facility] Rx#:[id number] Sodium Chloride 0.9% 1, 850 000 ml @ 100 mls/hr IV . Q10H [facility] Rx#:[id number] Sodium Chloride 0.9% 1, 0 000 ml @ 130 mls/hr IV . Q7H42M [facility] Rx#:[id number] Oral 0 Tube Feeding 0 Output: Urine 200 50 Other: Voiding Method Indwelling Catheter Indwelling Catheter # Bowel Movements 1 Weight 108.862 kg 108.862 kg GENERAL DESCRIPTION: Middle-aged female lying in bed, no distress. No tachypnea or accessory muscle of respiration use. HEENT: Shows Pallor , no scleral icterus. Oral mucous membrane is dry. No pharyngeal erythema or thrush NECK: Trachea central, no thyromegaly. LUNGS: Unlabored breathing. Clear to auscultation anteriorly. No wheeze or crackle. HEART: S1, S2, regular rate and rhythm. No loud murmur ABDOMEN: Soft, no tenderness , guarding or rigidity, no organomegaly EXTREMITIES: No edema of feet. SKIN: No rash, no masses palpable. Patient did have a lumbar wound postsurgical good currently tissue patient was exposed minimal redness no foul-smelling drain age. Patient did have a stage II pressure ulcer to the coccyx with minimal slough no surrounding redness or drainage NEUROLOGICAL: The patient is lethargic orientation could not be determined Results CBC & Chem 7: 07/02/22 02:12 07/02/22 07:59 Labs: Abnormal Lab Results - Last 24 Hours (Table) 07/01/22 07/01/22 07/01/22 Range/Units 15:55 15:55 15:55 WBC (3.8-10.6) k/uL RBC (3.80-5.40) m/uL Hgb (11.4-16.0) gm/dL Neutrophils # (Manual) (1.3-7.7) k/uL Lymphocytes # (Manual) 0.46 L (1.0-4.8) k/uL Metamyelocytes # (Man) 0.23 H (0) k/uL Nucleated RBCs (0-0) /100 WBC APTT 20.9 L (22.0-30.0) sec D-Dimer 32.09 H (<0.60) mg/L FEU Chloride (98-107) mmol/L Carbon Dioxide 19 L (22-30) mmol/L BUN 68 H (7-17) mg/dL Creatinine 1.51 H (0.52-1.04) mg/dL Glucose 168 H (74-99) mg/dL POC Glucose (mg/dL) (70-110) mg/dL Calcium (8.4-10.2) mg/dL Magnesium 1.3 L (1.6-2.3) mg/dL Total Protein 6.2 L (6.3-8.2) g/dL Procalcitonin (0.02-0.09) ng/mL Urine Appearance (Clear) Urine Protein (Negative) Urine Ketones (Negative) Urine Blood (Negative) Ur Leukocyte Esterase (Negative) Urine RBC (0-5) /hpf Urine WBC (0-5) /hpf Urine WBC Clumps (None) /hpf Urine Bacteria (None) /hpf Urine Mucus (None) /hpf Urine Yeast (Budding) (None) /hpf 07/01/22 07/01/22 07/01/22 Range/Units 15:55 15:55 20:30 WBC 12.3 H (3.8-10.6) k/uL RBC 3.71 L (3.80-5.40) m/uL Hgb (11.4-16.0) gm/dL Neutrophils # (Manual) 11.00 H (1.3-7.7) k/uL Lymphocytes # (Manual) 0.37 L (1.0-4.8) k/uL Metamyelocytes # (Man) 0.74 H (0) k/uL Nucleated RBCs (0-0) /100 WBC APTT (22.0-30.0) sec D-Dimer (<0.60) mg/L FEU Chloride (98-107) mmol/L Carbon Dioxide (22-30) mmol/L BUN (7-17) mg/dL Creatinine (0.52-1.04) mg/dL Glucose (74-99) mg/dL POC Glucose (mg/dL) (70-110) mg/dL Calcium (8.4-10.2) mg/dL Magnesium (1.6-2.3) mg/dL Total Protein (6.3-8.2) g/dL Procalcitonin 1.62 H (0.02-0.09) ng/mL Urine Appearance Turbid H (Clear) Urine Protein 1+ H (Negative) Urine Ketones Trace H (Negative) Urine Blood Small H (Negative) Ur Leukocyte Esterase Large H (Negative) Urine RBC 51 H (0-5) /hpf Urine WBC 81 H (0-5) /hpf Urine WBC Clumps Occasional H (None) /hpf Urine Bacteria Occasional H (None) /hpf Urine Mucus Rare H (None) /hpf Urine Yeast (Budding) Many H (None) /hpf 07/01/22 07/02/22 07/02/22 Range/Units 21:49 00:40 02:12 WBC 11.6 H (3.8-10.6) k/uL RBC 3.62 L (3.80-5.40) m/uL Hgb 11.3 L (11.4-16.0) gm/dL Neutrophils # (Manual) 10.40 H (1.3-7.7) k/uL Lymphocytes # (Manual) 0.46 L (1.0-4.8) k/uL Metamyelocytes # (Man) 0.12 H (0) k/uL Nucleated RBCs 1 H (0-0) /100 WBC APTT 162.0 H* (22.0-30.0) sec D-Dimer (<0.60) mg/L FEU Chloride (98-107) mmol/L Carbon Dioxide (22-30) mmol/L BUN (7-17) mg/dL Creatinine (0.52-1.04) mg/dL Glucose (74-99) mg/dL POC Glucose (mg/dL) 201 H (70-110) mg/dL Calcium (8.4-10.2) mg/dL Magnesium (1.6-2.3) mg/dL Total Protein (6.3-8.2) g/dL Procalcitonin (0.02-0.09) ng/mL Urine Appearance (Clear) Urine Protein (Negative) Urine Ketones (Negative) Urine Blood (Negative) Ur Leukocyte Esterase (Negative) Urine RBC (0-5) /hpf Urine WBC (0-5) /hpf Urine WBC Clumps (None) /hpf Urine Bacteria (None) /hpf Urine Mucus (None) /hpf Urine Yeast (Budding) (None) /hpf 07/02/22 07/02/22 07/02/22 Range/Units 06:12 07:15 07:59 WBC (3.8-10.6) k/uL RBC (3.80-5.40) m/uL Hgb (11.4-16.0) gm/dL Neutrophils # (Manual) (1.3-7.7) k/uL Lymphocytes # (Manual) (1.0-4.8) k/uL Metamyelocytes # (Man) (0) k/uL Nucleated RBCs (0-0) /100 WBC APTT (22.0-30.0) sec D-Dimer (<0.60) mg/L FEU Chloride 108 H (98-107) mmol/L Carbon Dioxide 17 L (22-30) mmol/L BUN 75 H (7-17) mg/dL Creatinine 2.04 H (0.52-1.04) mg/dL Glucose 148 H (74-99) mg/dL POC Glucose (mg/dL) 168 H 152 H (70-110) mg/dL Calcium 8.1 L (8.4-10.2) mg/dL Magnesium (1.6-2.3) mg/dL Total Protein (6.3-8.2) g/dL Procalcitonin (0.02-0.09) ng/mL Urine Appearance (Clear) Urine Protein (Negative) Urine Ketones (Negative) Urine Blood (Negative) Ur Leukocyte Esterase (Negative) Urine RBC (0-5) /hpf Urine WBC (0-5) /hpf Urine WBC Clumps (None) /hpf Urine Bacteria (None) /hpf Urine Mucus (None) /hpf Urine Yeast (Budding) (None) /hpf 07/02/22 Range/Units 08:10 WBC (3.8-10.6) k/uL RBC (3.80-5.40) m/uL Hgb (11.4-16.0) gm/dL Neutrophils # (Manual) (1.3-7.7) k/uL Lymphocytes # (Manual) (1.0-4.8) k/uL Metamyelocytes # (Man) (0) k/uL Nucleated RBCs (0-0) /100 WBC APTT 108.3 H* (22.0-30.0) sec D-Dimer (<0.60) mg/L FEU Chloride (98-107) mmol/L Carbon Dioxide (22-30) mmol/L BUN (7-17) mg/dL Creatinine (0.52-1.04) mg/dL Glucose (74-99) mg/dL POC Glucose (mg/dL) (70-110) mg/dL Calcium (8.4-10.2) mg/dL Magnesium (1.6-2.3) mg/dL Total Protein (6.3-8.2) g/dL Procalcitonin (0.02-0.09) ng/mL Urine Appearance (Clear) Urine Protein (Negative) Urine Ketones (Negative) Urine Blood (Negative) Ur Leukocyte Esterase (Negative) Urine RBC (0-5) /hpf Urine WBC (0-5) /hpf Urine WBC Clumps (None) /hpf Urine Bacteria (None) /hpf Urine Mucus (None) /hpf Urine Yeast (Budding) (None) /hpf Microbiology - Last 24 Hours (Table) 07/01/22 15:55 Urine Culture - Preliminary Urine,Voided Assessment and Plan Plan: 1patient presented to hospital with sepsis in this patient did have a fever tachycardia hypoxemia source likely multifactorial concern for possible pneumonia/UTI in this patient with a complicated course and recently completed course of antibiotic for the lumbar wound infection with Pseudomonas. 2we will wait for the blood and local culture that has been obtained 3-continue with the Zosyn while waiting for the culture to finalize 4local wound care to continue per the wound care team We will follow on clinical condition and cultures to further adjust medication if needed Thank you for this consultation we will follow the patient along with you
--- NOTE | 2022-07-02 16:51 | P.HPIM ---
History of Present Illness H&P Date: 07/01/22 Chief Complaint: Fever This is a 66-year-old patient, who was recently in the hospital from June 05 through June 09. Patient had undergone lumbar surgery by had [facility]. It seems on the medical floor patient had cervical spine injury. Has a neck collar in place. Patient then came in on June 05, had worsening wound in the lower back and patient was transferred to [facility]. On June 09 Doppler ultrasound reported positive for DVT in the common femoral vein and deep femoral vein. In a small on the left side femoral vein. Patient is put on IV heparin. Was seen by vascular. Patient is due for cervical spine surgery down the road. I spoke to the surgeon from [facility] from the ER yesterday. Patient's wound had been cleaned off. Patient is due to return next Tuesday to have stitches placed. Patient had a wound VAC placed. Repeat ultrasound at [facility] was negative for DVT. Patient has been getting PEG tube feeding. Patient was sent in from rehab after having pulse ox of 80% on 4 L. Tachycardic. An isolated temperature to 103. As a discussed with the surgeon from [facility] it was felt best to treat the patient here for infection and transfer the patient if any surgical intervention was needed. Patient started on IV heparin. ID and pulmonary was consulted. Review of systems: GEN.: Tired EYES: None HEENT: Dry mouth NECK: Collar RESPIRATORY: None CARDIOVASCULAR: None GASTROINTESTINAL: None GENITOURINARY: None MUSCULOSKELETAL: Some back pain] LYMPHATICS: None HEMATOLOGICAL: None PSYCHIATRY: None NEUROLOGICAL: None Past medical history to include: Chronic oropharyngeal dysphagia following neck injury following surgery, on dysphagia 3 diet with nectar thick liquids. 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 Ex-smoker. Family history: Reviewed, noncontributory to presentation On examination: VITAL SIGNS: 102.6, 140, 16, 140/68, 97% on 15 L nonrebreather GENERAL APPEARANCE: BMI 35.4, laying in bed awake tired HEENT: Normal external appearance of nose and ear. Oral cavity dry mucous membranes EYES: Pupils equal. Conjunctiva normal. NECK: Hard neck collar RESPIRATORY: Respiratory effort increased. Lungs decreased breath sounds CARDIOVASCULAR: First and second sounds normal. No edema. ABDOMEN: Soft. Liver and spleen not palpable. No tenderness. No mass palpable. PEG tube. Wound VAC on the lower back PSYCHIATRY: Able to answer simple questions NEUROLOGICAL: Power 1/5 in both arms and legs. Sensation present. LYMPHATICS: No lymph nodes palpable neck and axilla INVESTIGATIONS, reviewed in the clinical context: White count 12.3 hemoglobin 11.9 platelets 163 sodium 139 potassium 4.4. 68 creatinine 1.51 Pro-calcitonin 1.6 to UA positive for leukoesterase, negative for nitrite, WBC Coronavirus/influenza type A/type B: Not detected EKG tracing personally reviewed by me-sinus tachycardia, rate 126 Chest x-ray film personally reviewed by me-possible right basilar infiltrate Doppler ultrasound: Right leg: Entire leg is clotted starting above the, femoral vein and the great saphenous vein junction. Popliteal vein view limited. Left leg: Thrombus seen in the common femoral vein and above the common femoral vein and great saphenous vein junction. Popliteal vein view limited. Previous labs: BUN 124 creatinine 4.4-1 06/09/2022 Assessment and plan: -Severe sepsis, source could be pulmonary given hypoxemia, probable UTI. Infected postsurgical wound itself could be a source which is a wound VAC in place IV fluids. Consult ID. -Acute severe hypoxic respiratory failure from pneumonia hi Flow Oxygen. -Acute DVT: Right leg: Entire leg is clotted starting above the, femoral vein and the great saphenous vein junction. Popliteal vein view limited. Left leg: Thrombus seen in the common femoral vein and above the common femoral vein and great saphenous vein junction. Popliteal vein view limited. IV heparin. -Chronic oropharyngeal dysphagia, following neck injury following cervical spine surgery Last admission Seen by speech therapist. Had been on dysphagia level III diet with nectar thick liquids. Assist 1:1. -PEG tube feeding for supplemental feeding -chronic kidney disease stage 3 , probably secondary to diabetic nephropathy Follow renal function -Acute COPD exacerbation, in a previous smoker DuoNeb. Pulmicort - metabolic acidosis from renal failure Sodium bicarbonate -Diabetic peripheral neuropathy Neurontin 200 mg twice a day -Depression Celexa -Hyperlipidemia Lipitor -Quadriparesis from cervical spine injury. -Chronic medical debility -Deep lower back wound, a recent operative site. Surgeon had [facility]. Wound was debrided last week. P kolton is due to return next week for closing of stitches. Currently is a wound VAC. Consultation to ID. IV heparin. Resume PEG 2 feeding. As discussed with patient's surgeon will have ID evaluate the patient here. Depending on the clinical course patient be transferred across. If needed. Resume home medications. Past Medical History Past Medical History: Coronary Artery Disease (CAD), COPD, CVA/TIA, Diabetes Mellitus, Hypertension, Pulmonary Embolus (PE) Additional Past Medical History / Comment(s): depression. quadriplegia History of Any Multi-Drug Resistant Organisms: None Reported Past Surgical History: Unable to Obtain Past Anesthesia/Blood Transfusion Reactions: Unable to Obtain Past Psychological History: Anxiety, Depression Smoking Status: Unknown if ever smoked Past Alcohol Use History: None Reported Past Drug Use History: None Reported Medications and Allergies Home Medications Medication Instructions Recorded Confirmed Type Amitriptyline HCl [Elavil] 75 mg PO HS 06/04/22 07/01/22 History Atorvastatin [Lipitor] 20 mg PO HS 06/04/22 07/01/22 History Citalopram Hydrobromide 40 mg PO DAILY 06/04/22 07/01/22 History [Citalopram HBr] Docusate Sodium [Dok] 100 mg PO BID@799,199906/04/22 07/01/22 History Epoetin Galdino-Epbx [Retacrit] 3,000 units SQ MOWEFR@79906/04/22 07/01/22 History Famotidine 20 mg PO DAILY 06/04/22 07/01/22 History Gabapentin [Neurontin] 200 mg PO BID@799,199906/04/22 07/01/22 History Glycopyrrolate 1 mg PO DAILY 06/04/22 07/01/22 History LORazepam [Ativan] 0.5 mg PO TID@0500,1300,2100 06/04/22 07/01/22 History methocarbamoL [Methocarbamol] 750 mg PO TID@0500,1300,2100 06/04/22 07/01/22 History polyethylene glycoL 3350 [Miralax] 17 gm PO DAILY 06/04/22 07/01/22 History Calcium Acetate [Phoslo] 667 mg PO TID@0500,1300,2100 07/01/22 07/01/22 History HYDROcodone/APAP 10-325MG [[place] 1 tab PO Q4HR PRN 07/01/22 07/01/22 History 10-325] Lacosamide [Vimpat] 150 mg PO BID@0800,2000 07/01/22 07/01/22 History Lactulose 20 gm PO TID@0800,1200,1800 07/01/22 07/01/22 History Allergies Allergy/AdvReac Type Severity Reaction Status Date / Time diazepam [From Valium] Allergy Intermediate Rash/Hives Verified 07/01/22 21:28 morphine Allergy Intermediate Rash/Hives Verified 07/01/22 21:28 phenytoin [From Dilantin] Allergy Intermediate Rash/Hives Verified 07/01/22 21:28 Physical Exam Vitals: Vital Signs Temp Pulse Resp BP Pulse Ox 07/01/22 15:30 20 07/01/22 15:21 102.6 F H 140 H 16 140/68 97 Intake and Output 07/01/22 07/01/22 07/01/22 06:59 14:59 22:59 Other: Weight 108.862 kg Results CBC & Chem 7: 07/02/22 02:12 07/02/22 07:59 Labs: Abnormal Lab Results - Last 24 Hours (Table) 07/01/22 07/01/22 07/01/22 Range/Units 15:55 15:55 15:55 Lymphocytes # (Manual) 0.46 L (1.0-4.8) k/uL Metamyelocytes # (Man) 0.23 H (0) k/uL APTT 20.9 L (22.0-30.0) sec D-Dimer 32.09 H (<0.60) mg/L FEU Carbon Dioxide 19 L (22-30) mmol/L BUN 68 H (7-17) mg/dL Creatinine 1.51 H (0.52-1.04) mg/dL Glucose 168 H (74-99) mg/dL Magnesium 1.3 L (1.6-2.3) mg/dL Total Protein 6.2 L (6.3-8.2) g/dL Urine Appearance (Clear) Urine Protein (Negative) Urine Ketones (Negative) Urine Blood (Negative) Ur Leukocyte Esterase (Negative) Urine RBC (0-5) /hpf Urine WBC (0-5) /hpf Urine WBC Clumps (None) /hpf Urine Bacteria (None) /hpf Urine Mucus (None) /hpf Urine Yeast (Budding) (None) /hpf 07/01/22 Range/Units 15:55 Lymphocytes # (Manual) (1.0-4.8) k/uL Metamyelocytes # (Man) (0) k/uL APTT (22.0-30.0) sec D-Dimer (<0.60) mg/L FEU Carbon Dioxide (22-30) mmol/L BUN (7-17) mg/dL Creatinine (0.52-1.04) mg/dL Glucose (74-99) mg/dL Magnesium (1.6-2.3) mg/dL Total Protein (6.3-8.2) g/dL Urine Appearance Turbid H (Clear) Urine Protein 1+ H (Negative) Urine Ketones Trace H (Negative) Urine Blood Small H (Negative) Ur Leukocyte Esterase Large H (Negative) Urine RBC 51 H (0-5) /hpf Urine WBC 81 H (0-5) /hpf Urine WBC Clumps Occasional H (None) /hpf Urine Bacteria Occasional H (None) /hpf Urine Mucus Rare H (None) /hpf Urine Yeast (Budding) Many H (None) /hpf
[2022-07-02] MEDS: LORazepam 0.5 MG TAB PO SCH ×2 (16:55→20:40)
[2022-07-02] MEDS: methocarbamoL 750 MG TAB PO SCH ×2 (16:56→20:40)
--- NOTE | 2022-07-02 16:57 | P.PN ---
Progress Note - Text Progress Note Date: 07/02/22 Chief Complaint: Fever This is a 66-year-old patient, who was recently in the hospital from June 05 through June 09. Patient had undergone lumbar surgery by had [facility]. It seems on the medical floor patient had cervical spine injury. Has a neck collar in place. Patient then came in on June 05, had worsening wound in the lower back and patient was transferred to [facility]. On June 09 Doppler ultrasound reported positive for DVT in the common femoral vein and deep femoral vein. In a small on the left side femoral vein. Patient is put on IV heparin. Was seen by vascular. Patient is due for cervical spine surgery down the road. I spoke to the surgeon from [facility] from the ER yesterday. Patient's wound had been cleaned off. Patient is due to return next Tuesday to have stitches placed. Patient had a wound VAC placed. Repeat ultrasound at [facility] was negative for DVT. Patient has been getting PEG tube feeding. Patient was sent in from rehab after having pulse ox of 80% on 4 L. Tachycardic. An isolated temperature to 103. As a discussed with the surgeon from [facility] it was felt best to treat the patient here for infection and transfer the patient if any surgical intervention was needed. Patient started on IV heparin. ID and pulmonary was consulted. July 02: On the course of late evening and overnight patient dropped her blood pressure. He remained febrile. Septic shock. Patient moved to the ICU. Started IV fluid bolus levo fed. IV Zosyn. at the bedside. Discussed. 2 feedings are being started. Active Medications Acetaminophen (Acetaminophen Tab 325 Mg Tab) 650 mg PO Q6HR PRN PRN Reason: Fever and/ or Pain Last Admin: 07/02/22 08:57 Dose: 650 mg Albuterol/Ipratropium (Ipratropium-Albuterol 3 Ml Neb) 3 ml INHALATION RT-QID [facility] Amitriptyline HCl (Amitriptyline Hcl 25 Mg Tab) 75 mg PO HS [facility] Atorvastatin Calcium (Atorvastatin 20 Mg Tab) 20 mg PO HS [facility] Budesonide (Budesonide 1 Mg/2 Ml Nebu) 1 mg INHALATION RT-BID [facility] Calcium Acetate (Calcium Acetate 667 Mg Tab) 667 mg PO TID@0500,1300,2100 [facility] Last Admin: 07/02/22 12:36 Dose: 667 mg Citalopram Hydrobromide (Citalopram Hydrobromide 20 Mg Tab) 40 mg PO DAILY [facility] Docusate Sodium (Docusate 100 Mg Cap) 100 mg PO BID@ [facility] Last Admin: 07/02/22 12:35 Dose: Not Given Famotidine (Famotidine 20 Mg Tab) 20 mg PO DAILY [facility] Gabapentin (Gabapentin 100 Mg Cap) 200 mg PO BID@ [facility] Last Admin: 07/02/22 12:35 Dose: 200 mg Glycopyrrolate (Glycopyrrolate 1 Mg Tab) 1 mg PO DAILY [facility] Heparin Sodium (Porcine) (Heparin Sodium 1,000 Un/Ml (10ml Vl)) 0 unit IV PER PROTOCOL PRN; Protocol PRN Reason: Low PTT Heparin Sodium/Sodium Chloride (25,000 unit/ Sodium Chloride) 250 mls @ 19.595 mls/hr IV .[id number] [facility]; Protocol Last Titration: 07/02/22 11:20 Dose: 12.24 units/kg/hr, 13.329 mls/hr Sodium Chloride (Saline 0.9%) 1,000 mls @ 125 mls/hr IV .Q8H [facility] Last Admin: 07/02/22 08:52 Dose: 125 mls/hr Norepinephrine Bitartrate 4 mg (/ Sodium Chloride) 254 mls @ 20.738 mls/hr IV .[id number] [facility]; Protocol Last Titration: 07/02/22 12:46 Dose: 0.23 mcg/kg/min, 95.396 mls/hr Piperacillin Sod/Tazobactam (Sod 3.375 gm/ Sodium Chloride) 100 mls @ 25 mls/hr IVPB Q8HR [facility]; Protocol Lacosamide (Lacosamide 150 Mg Tablet) 150 mg PO BID@ [facility] Last Admin: 07/02/22 12:36 Dose: 150 mg Lorazepam (Lorazepam 0.5 Mg Tab) 0.5 mg PO TID@0500,1300,2100 [facility] Methocarbamol (Methocarbamol 750 Mg Tab) 750 mg PO TID@0500,1300,2100 [facility] Multi-Ingred Cream/Lotion/Oil/Oint (Hydrophilic Cream 180 Gm Tube) 1 applic TOPICAL DAILY [facility]; Protocol Last Admin: 07/02/22 12:37 Dose: 1 applic Naloxone HCl (Naloxone 0.4 Mg/Ml 1 Ml Vial) 0.2 mg IV Q2M PRN PRN Reason: Opioid Reversal Polyethylene Glycol (Polyethylene Glycol 3350 17 Gm Powd.Pack) 17 gm PO DAILY [facility] Last Admin: 07/02/22 12:37 Dose: Not Given Sodium Bicarbonate (Sodium Bicarbonate Tab 650 Mg Tab) 650 mg PO TID [facility] Past medical history to include: Chronic oropharyngeal dysphagia following neck injury following surgery, on dysphagia 3 diet with nectar thick liquids. 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 Ex-smoker. Family history: Reviewed, noncontributory to presentation On examination: VITAL SIGNS: 103.8, 134, 26, 1 48/87, 90% on 11 L GENERAL APPEARANCE: , laying in bed awake tired HEENT: Normal external appearance of nose and ear. Oral cavity dry mucous membranes EYES: Pupils equal. Conjunctiva normal. NECK: Hard neck collar RESPIRATORY: Respiratory effort increased. Lungs decreased breath sounds CARDIOVASCULAR: First and second sounds normal. No edema. ABDOMEN: Soft. Liver and spleen not palpable. No tenderness. No mass palpable. PEG tube. Wound VAC on the lower back PSYCHIATRY: Able to answer simple questions NEUROLOGICAL: Power 1/5 in both arms and legs. Sensation present. INVESTIGATIONS, reviewed in the clinical context: July 02: WBC 11.6 hemoglobin 11.3 platelets 166 potassium 4.4 BUN 75 creatinine 2.04 White count 12.3 hemoglobin 11.9 platelets 163 sodium 139 potassium 4.4. 68 creatinine 1.51 Pro-calcitonin 1.6 to UA positive for leukoesterase, negative for nitrite, WBC Coronavirus/influenza type A/type B: Not detected EKG tracing personally reviewed by me-sinus tachycardia, rate 126 Chest x-ray film personally reviewed by me-possible right basilar infiltrate Doppler ultrasound: Right leg: Entire leg is clotted starting above the, femoral vein and the great saphenous vein junction. Popliteal vein view limited. Left leg: Thrombus seen in the common femoral vein and above the common femoral vein and great saphenous vein junction. Popliteal vein view limited. Previous labs: BUN 124 creatinine 4.4-1 06/09/2022 Assessment and plan: -Severe sepsis, combination of pneumonia/UTI. Not improving source could be pulmonary given hypoxemia, probable UTI. Infected postsurgical wound itself could be a source which is a wound VAC in place IV Zosyn. -Septic shock IV fluids. Levo fed -Acute severe hypoxic respiratory failure from pneumonia: Slow to respond 11 L nasal cannula -Acute DVT: Right leg: Entire leg is clotted starting above the, femoral vein and the great saphenous vein junction. Popliteal vein view limited. Left leg: Thrombus seen in the common femoral vein and above the common femoral vein and great saphenous vein junction. Popliteal vein view limited. IV heparin. Consult vascular -Rule out pulmonary embolism VQ scan -Chronic oropharyngeal dysphagia, following neck injury following cervical spine surgery Last admission Seen by speech therapist. Had been on dysphagia level III diet with nectar thick liquids. Assist 1:1. We'll confirm his if patient is taking his diet prior to admission resume the same. -PEG tube feeding for supplemental feeding -chronic kidney disease stage 3 , probably secondary to diabetic nephropathy Follow renal function -Acute kidney injury, from ATN from sepsis Consult nephrology -Acute COPD exacerbation, in a previous smoker DuoNeb. Pulmicort - metabolic acidosis from renal failure Sodium bicarbonate -Diabetic peripheral neuropathy Neurontin 200 mg twice a day -Depression Celexa -Hyperlipidemia Lipitor -Quadriparesis from cervical spine injury. -Chronic medical debility -Deep lower back wound, a recent operative site. Surgeon had [facility]. Wound was debrided last week. Patient is due to return next week for closing of stitches. Currently is a wound VAC. Consultation nephrology. IV Zosyn. DuoNeb. Pulmicort. Sodium bicarbonate.- Oxygen. Spoke to the at the bedside. IV heparin. VQ scan.
[2022-07-02] MEDS: PIPERACILLIN-TAZOBACTAM 3.375 GM in SODIUM CHLORIDE 0.9% 100 ML IVPB SCH (17:07)
[2022-07-02] MEDS ORDERED: SODIUM CHLORIDE 0.9% 1,000 ML IV ONE ×2 (17:08)
[2022-07-02 18:05] LABS: Glucose,Whole Blood 146 mg/dL (70-110)
[2022-07-02] MEDS ORDERED: Magnesium Replacement Protocol 1 EACH MISC MISCELLANE PRN (18:34)
[2022-07-02] MEDS: GLYCOPYRROLATE 1 MG TAB PO SCH (18:55)
[2022-07-02] MEDS: CITALOPRAM HYDROBROMIDE 20 MG TAB PO SCH (18:55)
[2022-07-02] MEDS: FAMOTIDINE 20 MG TAB PO SCH (18:55)
[2022-07-02] MEDS: SODIUM BICARBONATE TAB 650 MG TAB PO SCH ×2 (19:00→22:01)
[2022-07-02] MEDS: MAGNESIUM SULFATE-D5W PMX 1 GM in DEXTROSE/WATER 1 100ML.BAG IVPB SCH ×3 (19:01→23:10)
[2022-07-02] MEDS: ATORVASTATIN 20 MG TAB PO SCH (20:40)
[2022-07-02] MEDS: AMITRIPTYLINE HCL 25 MG TAB PO SCH (20:40)
[2022-07-02] MEDS: BUDESONIDE 1 MG/2 ML NEBU INHALATION SCH (20:42)
[2022-07-02] MEDS: IPRATROPIUM-ALBUTEROL 3 ML NEB INHALATION SCH (20:42)
[2022-07-02 21:02] LABS: Glucose,Whole Blood 133 mg/dL (70-110)
--- NOTE | 2022-07-02 23:10 | P.PCN ---
Date of Procedure: 07/02/22 Description of Procedure: Date of Procedure: 07/02/22 Preoperative Diagnosis: Sepsis Postoperative Diagnosis: Sepsis Procedure(s) Performed: Femoral arterial line Anesthesia: local Surgeon: Jacqueline Rosenbaum Estimated Blood Loss (ml): 0 Condition: critical Disposition: ICU Operative Findings: Arterial line Indication: Hemodynamic monitoring. A time-out was completed verifying correct patient, procedure, site, position ing, and implant(s) or special equipment if applicable. Allens test was performed to ensure adequate perfusion. The patients left groin was prepped and draped in sterile fashion. 1% Lidocaine was used to anesthetize the area. An 18G Arrow arterial line was introduced into the left femoral artery. The catheter was threaded over the guide wire and the needle was removed with appropriate pulsatile blood return. Blood loss was minimal. The catheter was then sutured in place to the skin and a sterile dressing applied. Perfusion to the extremity distal to the point of catheter insertion was checked and found to be adequate. The patient tolerated the procedure well and there were no complications.
[2022-07-02] MEDS: SODIUM CHLORIDE 0.9% 50 ML with VASOPRESSIN 20 UNIT IVPB SCH ×2 (23:32)
[2022-07-03] MEDS: PIPERACILLIN-TAZOBACTAM 3.375 GM in SODIUM CHLORIDE 0.9% 100 ML IVPB SCH ×4 (00:12→23:53)
[2022-07-03] MEDS: NOREPINEPHRINE 4 MG in SODIUM CHLORIDE 0.9% 250 ML IV SCH ×5 (00:38→20:09)
[2022-07-03] MEDS: SODIUM CHLORIDE 0.9% 50 ML with VASOPRESSIN 20 UNIT IVPB SCH ×4 (00:47→07:30)
[2022-07-03] MEDS: CALCIUM ACETATE 667 MG TAB PO SCH ×3 (05:19→20:25)
[2022-07-03] MEDS: methocarbamoL 750 MG TAB PO SCH ×3 (05:19→20:26)
[2022-07-03] MEDS: LORazepam 0.5 MG TAB PO SCH ×3 (05:19→20:25)
[2022-07-03 05:20] LABS: HCT 37.4 % (34.0-46.0); HGB 11.9 gm/dL (11.4-16.0); Hypochromasia Moderate; MCH 31.2 pg (25.0-35.0); MCHC 31.7 g/dL (31.0-37.0); MCV 98.3 fL (80.0-100.0); Mean Platelet Volume 11.2; Platelet Count 118 k/uL (150-450); RBC 3.81 m/uL (3.80-5.40); RDW 14.5 % (11.5-15.5); WBC 10.7 k/uL (3.8-10.6)
[2022-07-03] MEDS: SODIUM CHLORIDE 0.9% 1,000 ML IV SCH (05:20)
[2022-07-03 06:52] LABS: Calcium 6.8 mg/dL (8.4-10.2); Magnesium 1.9 mg/dL (1.6-2.3); Phosphorus 3.6 mg/dL (2.5-4.5); Potassium 4.4 mmol/L (3.5-5.1)
[2022-07-03 07:03] LABS: Glucose,Whole Blood 200 mg/dL (70-110)
[2022-07-03 07:03] LABS: Glucose,Whole Blood 187 mg/dL (70-110)
--- NOTE | 2022-07-03 07:11 | XR ---
EXAMINATION TYPE: XR chest 1V portable DATE OF EXAM: 07/03/2022 5:46 AM COMPARISON: Chest radiographs from 07/01/2022 TECHNIQUE: XR chest 1V portable Frontal view of the chest. CLINICAL INDICATION:Female, 66 years old with history of respiratory distress; FINDINGS: Lungs/Pleura: No pleural effusion or pneumothorax. Unchanged mild bibasilar streaky opacities. Pulmonary vascularity: Unremarkable. Heart/mediastinum: Cardiomediastinal silhouette is unremarkable. Atherosclerotic calcifications are seen in the aorta. Musculoskeletal: No acute osseous pathology. IMPRESSION: Unchanged mild bibasilar streaky opacities, probable atelectasis.
[2022-07-03] MEDS: DOCUSATE 100 MG CAP PO SCH ×2 (08:07→20:25)
[2022-07-03] MEDS: BUDESONIDE 1 MG/2 ML NEBU INHALATION SCH ×2 (08:10→20:16)
[2022-07-03] MEDS: IPRATROPIUM-ALBUTEROL 3 ML NEB INHALATION SCH ×4 (08:10→20:16)
[2022-07-03] MEDS: GABAPENTIN 100 MG CAP PO SCH (08:14)
[2022-07-03] MEDS: SODIUM BICARBONATE TAB 650 MG TAB PO SCH (08:14)
[2022-07-03] MEDS: CITALOPRAM HYDROBROMIDE 20 MG TAB PO SCH (08:14)
[2022-07-03] MEDS: FAMOTIDINE 20 MG TAB PO SCH (08:14)
[2022-07-03] MEDS: LACOSAMIDE 150 MG TABLET PO SCH ×2 (08:14→20:25)
[2022-07-03] MEDS: polyethylene glycoL 3350 17 GM POWD.PACK PO SCH (08:18)
[2022-07-03] MEDS: GLYCOPYRROLATE 1 MG TAB PO SCH (08:19)
--- NOTE | 2022-07-03 10:48 | P.PN ---
Subjective Patient is seen for follow-up for acute kidney injury. Patient is a 66-year-old female with history of acute kidney injury needing dialysis for about 1 month last year. Patient's serum creatinine had been as low as 2.2 in April 2021 but has been staying about 3.2-4.4 in May 2022. Underlying history of paraplegia after cervical spine surgery. Patient was admitted to the hospital with complaints of shortness of breath. She is currently in the ICU. Patient has been hypotensive needing pressors. Urine output has decreased. UA is suggestive of UTI. Cultures are pending. Patient is maintained on antibiotics. Patient and family were talked to regarding possible need for renal replacement therapy if renal function continues to worsen and they do not wish to proceed with any kind of dialysis. CODE STATUS is currently no code no intubation. Objective - Vital Signs Vital signs: Vital Signs Temp 97.8 F 07/03/22 04:00 Pulse 131 H 07/03/22 08:21 Resp 24 07/03/22 07:00 BP 100/59 07/03/22 07:00 Pulse Ox 92 L 07/03/22 07:00 FiO2 Intake & Output 07/02/22 07/03/22 07/03/22 18:59 06:59 18:59 Intake Total 5915.791 4382.279 Output Total 60 58 Balance 7261.977 8652.279 Weight 108.862 kg 108.1 kg Intake: IV 1375 3700 Piperacillin-Tazobactam 3 200 .375 gm In Sodium Chloride 0.9% 100 ml @ 25 mls/hr IVPB Q8H [facility] Rx#: [id number] Sodium Chloride 0.9% 1, 1375 1500 000 ml @ 125 mls/hr IV . Q8H [facility] Rx#:[id number] Sodium Chloride 0.9% 1, 2000 000 ml @ 999 mls/hr IV . Q1H1M [facility] Rx#:[id number] Intake, IV Titration 537.173 8916.279 Amount Heparin Sod,Pork in 0.45% 215.432 79.292 NaCl 25,000 unit In 0.45 % NaCl 1 250ml.bag @ 18 UNITS/KG/HR 19.595 mls/hr IV .[id number] [facility] Rx#: [id number] Magnesium Sulfate-D5w Pmx 100 1 gm In Dextrose/Water 1 100ml.bag @ 100 mls/hr IVPB Q1H [facility] Rx#: [id number] Norepinephrine 4 mg In 254.000 958.987 Sodium Chloride 0.9% 250 ml @ 0.05 MCG/KG/MIN 20. 738 mls/hr IV .[id number] [facility] Rx#:[id number] Tube Feeding 40 340 Output: Urine 60 58 Other: Voiding Method Indwelling Catheter Indwelling Catheter ABP, PAP, CO, CI - Last Documented Arterial Blood Pressure 126/47 - Exam Patient is awake, comfortable, not in any acute distress. She is maintained in a cervical collar Examination of the heart S1 and S2 Examination lungs bilateral breath sounds are heard Abdomen is soft nontender Examination lower extremities shows trace edema bilaterally [employer] exam shows patient is paraplegic - Labs CBC & Chem 7: 07/03/22 05:00 07/03/22 05:00 Labs: Abnormal Lab Results - Last 24 Hours (Table) 07/02/22 07/02/22 07/02/22 Range/Units 07:59 18:00 18:02 WBC (3.8-10.6) k/uL Plt Count (150-450) k/uL APTT 130.6 H* (22.0-30.0) sec Chloride (98-107) mmol/L Carbon Dioxide (22-30) mmol/L BUN (7-17) mg/dL Creatinine (0.52-1.04) mg/dL Glucose (74-99) mg/dL POC Glucose (mg/dL) 146 H (70-110) mg/dL Calcium (8.4-10.2) mg/dL Magnesium 1.3 L (1.6-2.3) mg/dL 07/02/22 07/03/22 07/03/22 Range/Units 21:01 01:53 05:00 WBC (3.8-10.6) k/uL Plt Count (150-450) k/uL APTT 104.6 H* (22.0-30.0) sec Chloride 112 H (98-107) mmol/L Carbon Dioxide 14 L (22-30) mmol/L BUN 86 H (7-17) mg/dL Creatinine 2.50 H (0.52-1.04) mg/dL Glucose 187 H (74-99) mg/dL POC Glucose (mg/dL) 133 H (70-110) mg/dL Calcium 6.8 L (8.4-10.2) mg/dL Magnesium (1.6-2.3) mg/dL 07/03/22 07/03/22 07/03/22 Range/Units 05:00 07:00 07:01 WBC 10.7 H (3.8-10.6) k/uL Plt Count 118 L (150-450) k/uL APTT (22.0-30.0) sec Chloride (98-107) mmol/L Carbon Dioxide (22-30) mmol/L BUN (7-17) mg/dL Creatinine (0.52-1.04) mg/dL Glucose (74-99) mg/dL POC Glucose (mg/dL) 200 H 187 H (70-110) mg/dL Calcium (8.4-10.2) mg/dL Magnesium (1.6-2.3) mg/dL Microbiology - Last 24 Hours (Table) 07/01/22 15:42 Blood Culture - Preliminary Blood No Growth after 24 hours 07/01/22 15:59 Blood Culture - Preliminary Blood No Growth after 24 hours Assessment and Plan Assessment: 1. Acute kidney injury secondary to ATN from hypotension and sepsis. Currently oliguric with worsening renal function and no plans for renal replacement therapy 2. Chronic kidney disease NKF stage IV. Serum creatinine was 2.2 in April 2022 but most recently staying at about 3-4 mg/dL in early part of May 3. Septic shock maintained on antibiotics and pressors. Patient has ulcers and wound VAC on the back 4. Metabolic acidosis associated with acute kidney injury 5. Quadriplegia status post cervical spine surgery 6. Chronic oropharyngeal dysphagia currently with PEG tube 7. Acute bilateral femoral DVT Plan: Change IV fluids to IV bicarb Overall prognosis poor No plans for dialysis as per patient and family wishes.
[2022-07-03 11:17] LABS: Glucose,Whole Blood 170 mg/dL (70-110)
--- NOTE | 2022-07-03 11:28 | P.GSCN ---
History of Present Illness Consult date: 07/03/22 Reason for Consult: Bilateral lower extremity deep venous thrombosis. History of present illness: Patient is examined in the intensive care unit. Additionally I had a long discussion with the patient's family who is at bedside. Family indicates the patient had undergone lumbar surgery for dropfoot symptoms. This surgery was complicated by paralysis. Additionally the patient has severe cervical disc disease and was scheduled for surgery the second week in July. She was admitted with a diagnosis of sepsis. Family indicates that she has a history of an abscessed tooth and this apparently is being evaluated as the source of her sepsis. Additionally during her workup she was found be suffering from bilateral lower extremity deep venous thrombosis. She has renal insufficiency issues which appear to have worsened of late. Past Medical History Past Medical History: Coronary Artery Disease (CAD), COPD, CVA/TIA, Diabetes Mellitus, Hypertension, Pulmonary Embolus (PE) Additional Past Medical History / Comment(s): depression. quadriplegia History of Any Multi-Drug Resistant Organisms: None Reported Past Surgical History: Unable to Obtain Past Anesthesia/Blood Transfusion Reactions: Unable to Obtain Past Psychological History: Anxiety, Depression Smoking Status: Unknown if ever smoked Past Alcohol Use History: None Reported Past Drug Use History: None Reported Medications and Allergies Home Medications Medication Instructions Recorded Confirmed Type Amitriptyline HCl [Elavil] 75 mg PO HS 06/04/22 07/01/22 History Atorvastatin [Lipitor] 20 mg PO HS 06/04/22 07/01/22 History Citalopram Hydrobromide 40 mg PO DAILY 06/04/22 07/01/22 History [Citalopram HBr] Docusate Sodium [Dok] 100 mg PO BID@799,199906/04/22 07/01/22 History Epoetin Galdino-Epbx [Retacrit] 3,000 units SQ MOWEFR@0806/04/22 07/01/22 History Famotidine 20 mg PO DAILY 06/04/22 07/01/22 History Gabapentin [Neurontin] 200 mg PO BID@08,199906/04/22 07/01/22 History Glycopyrrolate 1 mg PO DAILY 06/04/22 07/01/22 History LORazepam [Ativan] 0.5 mg PO TID@0500,1300,2100 06/04/22 07/01/22 History methocarbamoL [Methocarbamol] 750 mg PO TID@0500,1300,2100 06/04/22 07/01/22 History polyethylene glycoL 3350 [Miralax] 17 gm PO DAILY 06/04/22 07/01/22 History Calcium Acetate [Phoslo] 667 mg PO TID@0500,1300,2100 07/01/22 07/01/22 History HYDROcodone/APAP 10-325MG [[place] 1 tab PO Q4HR PRN 07/01/22 07/01/22 History 10-325] Lacosamide [Vimpat] 150 mg PO BID@0800,2000 07/01/22 07/01/22 History Lactulose 20 gm PO TID@0800,1200,1800 07/01/22 07/01/22 History Allergies Allergy/AdvReac Type Severity Reaction Status Date / Time diazepam [From Valium] Allergy Intermediate Rash/Hives Verified 07/01/22 21:28 morphine Allergy Intermediate Rash/Hives Verified 07/01/22 21:28 phenytoin [From Dilantin] Allergy Intermediate Rash/Hives Verified 07/01/22 21:28 Surgical - Exam Osteopathic Statement: *. No significant issues noted on an osteopathic structural exam other than those noted in the History and Physical/Consult. Vital Signs Temp Pulse Resp BP Pulse Ox 102.6 F H 140 H 16 140/68 97 07/01/22 15:21 07/01/22 15:21 07/01/22 15:21 07/01/22 15:21 07/01/22 15:21 Results - Labs 07/03/22 05:00 07/03/22 05:00 Abnormal Lab Results - Last 24 Hours (Table) 07/02/22 07/02/22 07/02/22 Range/Units 07:59 18:00 18:02 WBC (3.8-10.6) k/uL Plt Count (150-450) k/uL APTT 130.6 H* (22.0-30.0) sec Chloride (98-107) mmol/L Carbon Dioxide (22-30) mmol/L BUN (7-17) mg/dL Creatinine (0.52-1.04) mg/dL Glucose (74-99) mg/dL POC Glucose (mg/dL) 146 H (70-110) mg/dL Calcium (8.4-10.2) mg/dL Magnesium 1.3 L (1.6-2.3) mg/dL 07/02/22 07/03/22 07/03/22 Range/Units 21:01 01:53 05:00 WBC (3.8-10.6) k/uL Plt Count (150-450) k/uL APTT 104.6 H* (22.0-30.0) sec Chloride 112 H (98-107) mmol/L Carbon Dioxide 14 L (22-30) mmol/L BUN 86 H (7-17) mg/dL Creatinine 2.50 H (0.52-1.04) mg/dL Glucose 187 H (74-99) mg/dL POC Glucose (mg/dL) 133 H (70-110) mg/dL Calcium 6.8 L (8.4-10.2) mg/dL Magnesium (1.6-2.3) mg/dL 07/03/22 07/03/22 07/03/22 Range/Units 05:00 07:00 07:01 WBC 10.7 H (3.8-10.6) k/uL Plt Count 118 L (150-450) k/uL APTT (22.0-30.0) sec Chloride (98-107) mmol/L Carbon Dioxide (22-30) mmol/L BUN (7-17) mg/dL Creatinine (0.52-1.04) mg/dL Glucose (74-99) mg/dL POC Glucose (mg/dL) 200 H 187 H (70-110) mg/dL Calcium (8.4-10.2) mg/dL Magnesium (1.6-2.3) mg/dL 07/03/22 Range/Units 11:15 WBC (3.8-10.6) k/uL Plt Count (150-450) k/uL APTT (22.0-30.0) sec Chloride (98-107) mmol/L Carbon Dioxide (22-30) mmol/L BUN (7-17) mg/dL Creatinine (0.52-1.04) mg/dL Glucose (74-99) mg/dL POC Glucose (mg/dL) 170 H (70-110) mg/dL Calcium (8.4-10.2) mg/dL Magnesium (1.6-2.3) mg/dL Microbiology - Last 24 Hours (Table) 07/01/22 15:42 Blood Culture - Preliminary Blood No Growth after 24 hours 07/01/22 15:59 Blood Culture - Preliminary Blood No Growth after 24 hours Diabetes panel 07/03/22 Range/Units 05:00 Sodium 142 (137-145) mmol/L Potassium 4.4 (3.5-5.1) mmol/L Chloride 112 H (98-107) mmol/L Carbon Dioxide 14 L (22-30) mmol/L BUN 86 H (7-17) mg/dL Creatinine 2.50 H (0.52-1.04) mg/dL Glucose 187 H (74-99) mg/dL Calcium 6.8 L (8.4-10.2) mg/dL Calcium panel 07/02/22 07/03/22 Range/Units 07:59 05:00 Calcium 6.8 L (8.4-10.2) mg/dL Phosphorus 3.2 3.6 (2.5-4.5) mg/dL Pituitary panel 07/03/22 Range/Units 05:00 Sodium 142 (137-145) mmol/L Potassium 4.4 (3.5-5.1) mmol/L Chloride 112 H (98-107) mmol/L Carbon Dioxide 14 L (22-30) mmol/L BUN 86 H (7-17) mg/dL Creatinine 2.50 H (0.52-1.04) mg/dL Glucose 187 H (74-99) mg/dL Calcium 6.8 L (8.4-10.2) mg/dL Adrenal panel 07/03/22 Range/Units 05:00 Sodium 142 (137-145) mmol/L Potassium 4.4 (3.5-5.1) mmol/L Chloride 112 H (98-107) mmol/L Carbon Dioxide 14 L (22-30) mmol/L BUN 86 H (7-17) mg/dL Creatinine 2.50 H (0.52-1.04) mg/dL Glucose 187 H (74-99) mg/dL Calcium 6.8 L (8.4-10.2) mg/dL Assessment and Plan Assessment: Bilateral lower extremity deep venous thrombosis possibly extending above the inguinal ligament bilaterally. Currently tolerating heparin therapy. Plan: Plan: I discussed with the family typical options of percutaneous mechanical thrombectomy plus or minus IVC filter. Currently the patient is tolerating heparin and there is no absolute indication for either thrombectomy or filter placement. Filter could be placed should anticoagulation need to be withdrawn or complications develop. Thank you very much from me to participate in the care of your patient. Time with Patient: Less than 30
--- NOTE | 2022-07-03 13:28 | P.PN ---
Subjective Progress Note Date: 07/03/22 66-year-old female patient, very poor historian, quadriplegic related to previous surgery to the neck that was complicated by development of quadriplegia. The patient is currently bedridden. She is nonverbal. She has a chronic sacral wound with a negative pressure wound VAC in place in her lumbar area. The patient has had a previous tracheostomy that was subsequently decannulated. The patient has a permanent active place for enteral feeding and nutritional support. The patient presented to the hospital because of worsening shortness of breath and the patient was in a ECF location and she was brought into the hospital because of increased dyspnea cough and congestion. The patient is unable to volunteer any significant history at this point in time. Investigation was done and the patient was found to have a white cell count of 12.3 with a hemoglobin 11.9 and a platelet count of 163. The coagulation profile was normal. D-dimer was very much elevated at 32. Based on that, the patient was given Doppler of the lower extremity and the patient was found to have bilateral DVTs, the right lower extremity showed a clot above the common femoral vein and the entire leg venous system was involved. Left lower extremity showed a positive DVT in the common femoral and popliteal. The patie nt accordingly was started on IV heparin. Rest of the blood work showed a creatinine of 1.5 consistent with chronic kidney disease, BUN of 68, sodium of 139 and a potassium level of 4.4 and a serum bicarb of 19. The anion gap was 18. The patient had a abnormal UA with 51 RBCs and 81 WBCs along with clumps, and the pro-calcitonin level was at 1.62 consistent with an underlying bacterial infection. The liver function tests were essentially within normal limits. The proBNP level was 2890 and a troponin was at 0.03. COVID 19 testing was negative. Influenza screen was negative. The patient was given a total of 3 L of IV fluids in the form of normal saline and the patient is currently on normal saline at the rate of 1 25 mL an hour. The patient was on a medical floor the patient became hypotensive she got transferred to the ICU where she was started on norepinephrine and currently norepinephrine is running at 0.1 mcg/kg per minute. The patient's condition was consistent with sepsis. The patient was febrile with a T-max of 103.8 and the patient was quite hypoxic with pulse ox of 80% and she was placed on 4 L approximately nasal cannula. Subsequently, the FiO2 was brought up to 11 L per minute nasal cannula to maintain a saturation above 90%. On 07/03/2022, patient is being seen for a follow-up. The patient admitted to the intensive care unit because of hypotension and sepsis. The patient for now remains hemodynamically unstable. She is less tachycardic although she c ontinues to have a component of sinus tachycardia and her heart rate is around 120. The overall fluid balance is positive as the patient was since his IV fluids and the patient remains on norepinephrine at a dose of 0.24 mg/kg per minute and the patient is also on a physiologic dose of vasopressin. The patient also received a total of 5 L of IV fluids. The chest x-ray showing some atelectatic changes in the right midlung. The patient is not having a significant respiratory distress and she is on 15 L about 2 by nasal cannula. She is a mouth breather. She has developed acute kidney injury. Creatinine is up to 2.5 with a 66. Creatinine from yesterday was at 2.1. At the same time, the patient has a serum bicarb of 14 and the patient was started bicarb infusion. Sodium is 142 with a potassium level of 4.4 and chloride of 112. The white cell count is at 10.7 with a hemoglobin of 11.9 and a platelet count of 118. The patient is currently receiving enteral feeding for nutritional support and the patient is on Vicodin ES at the rate of 40 mL an hour. She is interacting. Her last temperature spike was yesterday at 4 PM where she had a temperature of 102.8. Since then, she has been afebrile.pro-calcitonin level at the time of admission was 1.62 to just about underlying bacterial infection. The patient remains on broad-spectrum antibiotics and the patient is currently on IV Zosyn. Objective - Vital Signs Vital signs: Vital Signs Temp 97.8 F 07/03/22 04:00 Pulse 131 H 07/03/22 08:21 Resp 24 07/03/22 07:00 BP 100/59 07/03/22 07:00 Pulse Ox 92 L 07/03/22 07:00 FiO2 Intake & Output 07/02/22 07/03/22 07/03/22 18:59 06:59 18:59 Intake Total 6972.779 2650.279 46.991 Output Total 60 58 Balance 0047.403 1109.279 46.991 Weight 108.862 kg 108.1 kg Intake: IV 1375 3700 Piperacillin-Tazobactam 3 200 .375 gm In Sodium Chloride 0.9% 100 ml @ 25 mls/hr IVPB Q8H [facility] Rx#: [id number] Sodium Chloride 0.9% 1, 1375 1500 000 ml @ 125 mls/hr IV . Q8H [facility] Rx#:[id number] Sodium Chloride 0.9% 1, 2000 000 ml @ 999 mls/hr IV . Q1H1M [facility] Rx#:[id number] Intake, IV Titration 112.845 8409.279 46.991 Amount Heparin Sod,Pork in 0.45% 215.432 79.292 46.991 NaCl 25,000 unit In 0.45 % NaCl 1 250ml.bag @ 18 UNITS/KG/HR 19.595 mls/hr IV .[id number] [facility] Rx#: [id number] Magnesium Sulfate-D5w Pmx 100 1 gm In Dextrose/Water 1 100ml.bag @ 100 mls/hr IVPB Q1H [facility] Rx#: [id number] Norepinephrine 4 mg In 254.000 958.987 Sodium Chloride 0.9% 250 ml @ 0.05 MCG/KG/MIN 20. 738 mls/hr IV .[id number] [facility] Rx#:[id number] Tube Feeding 40 340 Output: Urine 60 58 Other: Voiding Method Indwelling Catheter Indwelling Catheter ABP, PAP, CO, CI - Last Documented Arterial Blood Pressure 126/47 - Exam GENERAL EXAM: Alert, very pleasant, 66-year-old female, 10 L of oxygen pulse ox 92% comfortable in no apparent distress.the patient is currently wearing a hard neck collar HEAD: Normocephalic/atraumatic. EYES: Normal reaction of pupils, equal size. Conjunctiva pink, sclera white. NOSE: Clear with pink turbinates. THROAT: No erythema or exudates. NECK: No masses, no JVD, no thyroid enlargement, no adenopathy. CHEST: No chest wall deformity. Symmetrical expansion. LUNGS: Equal air entry with no crackles, wheeze, rhonchi or dullness.breath sounds are diminished bilaterally CVS: Regular rate and rhythm, normal S1 and S2, no gallops, no murmurs, no rubs ABDOMEN: Soft, nontender. No hepatosplenomegaly, normal bowel sounds, no guarding or rigidity. EXTREMITIES: No clubbing, no edema, no cyanosis, 2+ pulses and upper and lower extremities. MUSCULOSKELETAL: Muscle atrophy in all 4 extremities along with contractures and weakness SPINE: No scoliosis or deformity SKIN: No rashes, the patient has a wound VAC to her lumbar area for an underlying chronic wound CENTRAL NERVOUS SYSTEM: patient is unable to communicate at this point in time No focal deficits, tone is normal in all 4 extremities. PSYCHIATRIC: unable to perform - Labs CBC & Chem 7: 07/03/22 05:00 07/03/22 05:00 Labs: Abnormal Lab Results - Last 24 Hours (Table) 07/02/22 07/02/22 07/02/22 Range/Units 18:00 18:02 21:01 WBC (3.8-10.6) k/uL Plt Count (150-450) k/uL APTT 130.6 H* (22.0-30.0) sec Chloride (98-107) mmol/L Carbon Dioxide (22-30) mmol/L BUN (7-17) mg/dL Creatinine (0.52-1.04) mg/dL Glucose (74-99) mg/dL POC Glucose (mg/dL) 146 H 133 H (70-110) mg/dL Calcium (8.4-10.2) mg/dL 07/03/22 07/03/22 07/03/22 Range/Units 01:53 05:00 05:00 WBC 10.7 H (3.8-10.6) k/uL Plt Count 118 L (150-450) k/uL APTT 104.6 H* (22.0-30.0) sec Chloride 112 H (98-107) mmol/L Carbon Dioxide 14 L (22-30) mmol/L BUN 86 H (7-17) mg/dL Creatinine 2.50 H (0.52-1.04) mg/dL Glucose 187 H (74-99) mg/dL POC Glucose (mg/dL) (70-110) mg/dL Calcium 6.8 L (8.4-10.2) mg/dL 07/03/22 07/03/22 07/03/22 Range/Units 07:00 07:01 11:15 WBC (3.8-10.6) k/uL Plt Count (150-450) k/uL APTT (22.0-30.0) sec Chloride (98-107) mmol/L Carbon Dioxide (22-30) mmol/L BUN (7-17) mg/dL Creatinine (0.52-1.04) mg/dL Glucose (74-99) mg/dL POC Glucose (mg/dL) 200 H 187 H 170 H (70-110) mg/dL Calcium (8.4-10.2) mg/dL 07/03/22 Range/Units 11:15 WBC (3.8-10.6) k/uL Plt Count (150-450) k/uL APTT 71.1 H (22.0-30.0) sec Chloride (98-107) mmol/L Carbon Dioxide (22-30) mmol/L BUN (7-17) mg/dL Creatinine (0.52-1.04) mg/dL Glucose (74-99) mg/dL POC Glucose (mg/dL) (70-110) mg/dL Calcium (8.4-10.2) mg/dL Microbiology - Last 24 Hours (Table) 07/01/22 15:42 Blood Culture - Preliminary Blood No Growth after 24 hours 07/01/22 15:59 Blood Culture - Preliminary Blood No Growth after 24 hours Assessment and Plan Plan: acute sepsis, likely a urinary source. Other sources such as lungs or wound infection are palpable less likely. The patient's pro-calcitonin level is elevated consistent with bacterial infection and the patient is currently hypotensive on pressors for hemodynamic support and the patient will be started on broad-spectrum antibiotics. The patient remains on IV Zosyn. The patient remains pressor dependent despite being adequately resuscitated IV fluids. Acute hypotension likely secondary to sepsis acute hypoxic respiratory failure secondary to above. Chest x-rays revealing atelectatic changes in lung bases, and the patient remains on 10 L of O2 nasal cannula Acute kidney injury Acute metabolic acidosis Mild leukocytosis Chronic stage III kidney disease with a component of an acute kidney injury Bilateral DVTs of the lower eczematous currently on IV heparin quadriplegia related to a previous C-spine surgery, the patient is nonambulatory and bedridden. The patient undergone previous cervical spine surgery thank you for enteral feeding and nutritional support Chronic anxiety/depression Diabetes mellitus type 2, not receiving any treatment on an outpatient basis Diabetic peripheral neuropathy Previous history of UTIs Chronic dysphagia and the patient receives enteral feeding for nutritional support. The patient has neck injury due to a cervical spine surgery surgical wound dehiscence with nonhealing ulceration of that and muscle involvement without necrosis and the patient has a stage II pressure ulcer in the coccyx and the right ankle. history of seizure activity currently on Vimpat plan Keep the patient on 10 L of nasal cannula Bicarb infusion Pressors and the patient is currently on norepinephrine and vasopressin and norepinephrine dose is currently at 0.24 mcg/kg per minute Continue IV Zosyn Continue IV heparin regarding bilateral lower extremity DVTs wound VAC services Enteral feeding for nutritional support via PEG tube Patient is quite debilitated with a DNR/DNI CODE STATUS Echocardiogram Ultrasound the kidneys Check a baseline cortisol level Nephrology consultation We'll continue to follow and the patient IN ICU. Prognosis poor. Condition is critical and this evaluation was done more than 30 minutes. DNR/DNI CODE STATUS. Arterial line was inserted yesterday.
[2022-07-03] MEDS: DEXTROSE 5% IN WATER 1,000 ML with SODIUM BICARB (1 MEQ/ML) 150 ML IV SCH ×2 (13:36→21:50)
[2022-07-03] MEDS ORDERED: DEXTROSE 5% IN WATER 1,000 ML with SODIUM BICARB (1 MEQ/ML) 50 ML IV SCH (15:30)
--- NOTE | 2022-07-03 15:35 | P.PN ---
Progress Note - Text Progress Note Date: 07/03/22 Chief Complaint: Fever This is a 66-year-old patient, who was recently in the hospital from June 05 through June 09. Patient had undergone lumbar surgery by had [facility]. It seems on the medical floor patient had cervical spine injury. Has a neck collar in place. Patient then came in on June 05, had worsening wound in the lower back and patient was transferred to [facility]. On June 09 Doppler ultrasound reported positive for DVT in the common femoral vein and deep femoral vein. In a small on the left side femoral vein. Patient is put on IV heparin. Was seen by vascular. Patient is due for cervical spine surgery down the road. I spoke to the surgeon from [facility] from the ER yesterday. Patient's wound had been cleaned off. Patient is due to return next Tuesday to have stitches placed. Patient had a wound VAC placed. Repeat ultrasound at [facility] was negative for DVT. Patient has been getting PEG tube feeding. Patient was sent in from rehab after having pulse ox of 80% on 4 L. Tachycardic. An isolated temperature to 103. As a discussed with the surgeon from [facility] it was felt best to treat the patient here for infection and transfer the patient if any surgical intervention was needed. Patient started on IV heparin. ID and pulmonary was consulted. July 02: On the course of late evening and overnight patient dropped her blood pressure. He remained febrile. Septic shock. Patient moved to the ICU. Started IV fluid bolus levo fed. IV Zosyn. at the bedside. Discussed. 2 feedings are being started. July 03: ICU: Being visited by family. Patient remains hypertensive. IV levo fed and vasopressin. IV fluids. 13 L high flow oxygen. Sinus tachycardia. Febrile. Tired. IV Zosyn. Seen by vascular. For DVT. Continue IV heparin. Active Medications Acetaminophen (Acetaminophen Tab 325 Mg Tab) 650 mg PO Q6HR PRN PRN Reason: Fever and/ or Pain Last Admin: 07/02/22 19:00 Dose: 650 mg Albuterol/Ipratropium (Ipratropium-Albuterol 3 Ml Neb) 3 ml INHALATION RT-QID [facility] Last Admin: 07/03/22 11:47 Dose: Not Given Amitriptyline HCl (Amitriptyline Hcl 25 Mg Tab) 75 mg PO HS [facility] Last Admin: 07/02/22 20:40 Dose: 75 mg Atorvastatin Calcium (Atorvastatin 20 Mg Tab) 20 mg PO HS [facility] Last Admin: 07/02/22 20:40 Dose: 20 mg Budesonide (Budesonide 1 Mg/2 Ml Nebu) 1 mg INHALATION RT-BID [facility] Last Admin: 07/03/22 08:10 Dose: 1 mg Calcium Acetate (Calcium Acetate 667 Mg Tab) 667 mg PO TID@0500,1300,2100 [facility] Last Admin: 07/03/22 05:19 Dose: 667 mg Citalopram Hydrobromide (Citalopram Hydrobromide 20 Mg Tab) 40 mg PO DAILY [facility] Last Admin: 07/03/22 08:14 Dose: 40 mg Docusate Sodium (Docusate 100 Mg Cap) 100 mg PO BID@0800,2000 [facility] Last Admin: 07/03/22 08:07 Dose: Not Given Famotidine (Famotidine 20 Mg Tab) 20 mg PO DAILY [facility] Last Admin: 07/03/22 08:14 Dose: 20 mg Gabapentin (Gabapentin 100 Mg Cap) 200 mg PO BID@0800,2000 [facility] Last Admin: 07/03/22 08:14 Dose: 200 mg Glycopyrrolate (Glycopyrrolate 1 Mg Tab) 1 mg PO DAILY [facility] Last Admin: 07/03/22 08:19 Dose: 1 mg Heparin Sodium (Porcine) (Heparin Sodium 1,000 Un/Ml (10ml Vl)) 0 unit IV PER PROTOCOL PRN; Protocol PRN Reason: Low PTT Heparin Sodium/Sodium Chloride (25,000 unit/ Sodium Chloride) 250 mls @ 19.595 mls/hr IV .[id number] [facility]; Protocol Last Titration: 07/03/22 12:31 Dose: Infused Norepinephrine Bitartrate 4 mg (/ Sodium Chloride) 254 mls @ 20.738 mls/hr IV .[id number] [facility]; Protocol Last Admin: 07/03/22 13:35 Dose: 0.26 mcg/kg/min, 107.839 mls/hr Piperacillin Sod/Tazobactam (Sod 3.375 gm/ Sodium Chloride) 100 mls @ 25 mls/hr IVPB Q8HR [facility]; Protocol Last Admin: 07/03/22 08:13 Dose: 25 mls/hr Vasopressin 20 unit/ Sodium (Chloride) 51 mls @ 4.59 mls/hr IVPB .[id number] [facility] Last Admin: 07/03/22 07:30 Dose: 4.59 mls/hr Sodium Bicarbonate 150 ml/ (Dextrose/Water) 1,150 mls @ 125 mls/hr IV .[id number] [facility] Last Admin: 07/03/22 13:36 Dose: 125 mls/hr Lacosamide (Lacosamide 150 Mg Tablet) 150 mg PO BID@0800,2000 [facility] Last Admin: 07/03/22 08:14 Dose: 150 mg Lorazepam (Lorazepam 0.5 Mg Tab) 0.5 mg PO TID@0500,1300,2100 [facility] Last Admin: 07/03/22 05:19 Dose: 0.5 mg Methocarbamol (Methocarbamol 750 Mg Tab) 750 mg PO TID@0500,1300,2100 [facility] Last Admin: 07/03/22 05:19 Dose: 750 mg Miscellaneous Information (Magnesium Replacement Protocol 1 Each Misc) 1 each MISCELLANE DAILY PRN; Protocol PRN Reason: Per Protocol Multi-Ingred Cream/Lotion/Oil/Oint (Hydrophilic Cream 180 Gm Tube) 1 applic TOPICAL DAILY [facility]; Protocol Last Admin: 07/02/22 12:37 Dose: 1 applic Naloxone HCl (Naloxone 0.4 Mg/Ml 1 Ml Vial) 0.2 mg IV Q2M PRN PRN Reason: Opioid Reversal Polyethylene Glycol (Polyethylene Glycol 3350 17 Gm Powd.Pack) 17 gm PO DAILY [facility] Last Admin: 07/03/22 08:18 Dose: Not Given Past medical history to include: Chronic oropharyngeal dysphagia following neck injury following surgery, on dysphagia 3 diet with nectar thick liquids. 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 Ex-smoker. Family history: Reviewed, noncontributory to presentation On examination: VITAL SIGNS: Weight 1.3, 134, 28, 1 or 2 x 74, 92% on 30 L GENERAL APPEARANCE: , laying in bed awake tired HEENT: Normal external appearance of nose and ear. Oral cavity dry mucous membranes EYES: Pupils equal. Conjunctiva normal. NECK: Hard neck collar RESPIRATORY: Respiratory effort increased. Lungs decreased breath sounds CARDIOVASCULAR: First and second sounds normal. No edema. ABDOMEN: Soft. Liver and spleen not palpable. No tenderness. No mass palpable. PEG tube. Wound VAC on the lower back PSYCHIATRY: Able to answer simple questions NEUROLOGICAL: Power 1/5 in both arms and legs. Sensation present. INVESTIGATIONS, reviewed in the clinical context: July 03: WBC 10.7 hemoglobin 11.9 which is 118 potassium 4.4 white count 14 BUN 86 creatinine 2.50 July 02: WBC 11.6 hemoglobin 11.3 platelets 166 potassium 4.4 BUN 75 creatinine 2.04 White count 12.3 hemoglobin 11.9 platelets 163 sodium 139 potassium 4.4. 68 creatinine 1.51 Pro-calcitonin 1.6 to UA positive for leukoesterase, negative for nitrite, WBC Coronavirus/influenza type A/type B: Not detected EKG tracing personally reviewed by me-sinus tachycardia, rate 126 Chest x-ray film personally reviewed by me-possible right basilar infiltrate Doppler ultrasound: Right leg: Entire leg is clotted starting above the, femoral vein and the great saphenous vein junction. Popliteal vein view limited. Left leg: Thrombus seen in the common femoral vein and above the common femoral vein and great saphenous vein junction. Popliteal vein view limited. Previous labs: BUN 124 creatinine 4.4-1 06/09/2022 Assessment and plan: -Severe sepsis, combination of pneumonia/UTI. Not improving source could be pulmonary given hypoxemia, probable UTI. Infected postsurgical wound itself could be a source which is a wound VAC in place: Not improving IV Zosyn. -Septic shock, not improving IV fluids. Levo fed and vasopressin -Acute severe hypoxic respiratory failure from pneumonia: Not improving 13 L nasal cannula -Acute DVT: Right leg: Entire leg is clotted starting above the, femoral vein and the great saphenous vein junction. Popliteal vein view limited. Left leg: Thrombus seen in the common femoral vein and above the common femoral vein and great saphenous vein junction. Popliteal vein view limited. IV heparin. Seen by vascular, Dr. Cordoba. No further intervention -Chronic oropharyngeal dysphagia, following neck injury following cervical spine surgery Last admission Seen by speech therapist. Had been on dysphagia level III diet with nectar thick liquids. Assist 1:1. We'll confirm his if patient is taking his diet prior to admission resume the same. -PEG tube feeding for supplemental feeding -chronic kidney disease stage 3 , probably secondary to diabetic nephropathy Follow renal function -Acute kidney injury, from ATN from sepsis and hypertension: Worsening Consult nephrology -Acute COPD exacerbation, in a previous smoker DuoNeb. Pulmicort - metabolic acidosis from renal failure: Worsening Start sodium bicarbonate drip -Diabetic peripheral neuropathy Cutback Neurontin to 200 mg daily at bedtime because of worsening renal function -Depression Celexa -Hyperlipidemia Lipitor -Quadriparesis from cervical spine injury. -Chronic medical debility -Deep lower back wound, a recent operative site. Surgeon had [facility]. Wound was debrided last week had [place]. Patient is due to return for closing of stitches. Currently-wound VAC. -No code with instructions IV levo fed, IV vasopressin. Started IV sodium bicarbonate. IV heparin.--High flow oxygen. Prognosis guarded.
--- NOTE | 2022-07-03 17:18 | US ---
EXAMINATION TYPE: US kidneys/renal and bladder DATE OF EXAM: 07/03/2022 COMPARISON: NONE CLINICAL HISTORY: ALEXANDRA. ALEXANDRA exam very limited due to body habitus and patient is vented unable to roll . Left kidney not seen due to bowel gas. EXAM MEASUREMENTS: Right Kidney: 9.2 x 4.0 x 3.9 cm Left Kidney: Obscured by bowel gas. Right Kidney: No hydronephrosis or masses seen Left Kidney: Obscured by overlying bowel gas There is no evidence for hydronephrosis at this point in time. No nephrolithiasis is seen. No lola s are identified. Kidney appears mildly atrophic. IMPRESSION: 1. Markedly limited study due to patient's body habitus. The left kidney is not visualized secondary to bowel content 2. Mildly atrophic right kidney. 3. No right renal calcifications, masses or hydronephrosis.
[2022-07-03] MEDS: HYDROPHILIC CREAM 180 GM TUBE TOPICAL SCH (19:23)
[2022-07-03] MEDS: HEPARIN SOD,PORK IN 0.45% NACL 25,000 UNIT in 0.45% NACL 1 250ML.BAG IV SCH (20:04)
[2022-07-03] MEDS: AMITRIPTYLINE HCL 25 MG TAB PO SCH (20:26)
[2022-07-03] MEDS: ATORVASTATIN 20 MG TAB PO SCH (20:26)
[2022-07-03 20:53] LABS: Glucose,Whole Blood 192 mg/dL (70-110)
[2022-07-04] MEDS: NOREPINEPHRINE 4 MG in SODIUM CHLORIDE 0.9% 250 ML IV SCH ×3 (00:14→08:21)
[2022-07-04 05:03] LABS: HCT 33.1 % (34.0-46.0); HGB 10.2 gm/dL (11.4-16.0); Hypochromasia Marked; MCH 30.6 pg (25.0-35.0); MCHC 30.8 g/dL (31.0-37.0); MCV 99.3 fL (80.0-100.0); Mean Platelet Volume 12.7; RBC 3.33 m/uL (3.80-5.40); RDW 14.8 % (11.5-15.5); WBC 17.7 k/uL (3.8-10.6)
[2022-07-04] MEDS: HEPARIN SOD,PORK IN 0.45% NACL 25,000 UNIT in 0.45% NACL 1 250ML.BAG IV SCH ×2 (05:07→05:08)
[2022-07-04 05:14] LABS: Magnesium 1.7 mg/dL (1.6-2.3); Phosphorus 3.8 mg/dL (2.5-4.5); Potassium 3.9 mmol/L (3.5-5.1)
[2022-07-04 05:18] LABS: Calcium 6.3 mg/dL (8.4-10.2)
[2022-07-04] MEDS: methocarbamoL 750 MG TAB PO SCH ×2 (05:38→15:20)
[2022-07-04] MEDS: CALCIUM ACETATE 667 MG TAB PO SCH ×2 (05:38→15:20)
[2022-07-04] MEDS: LORazepam 0.5 MG TAB PO SCH ×2 (05:38→15:17)
[2022-07-04 06:38] LABS: Platelet Count 95 k/uL (150-450)
[2022-07-04] MEDS ORDERED: CALCIUM GLUCONATE IN NACL 1 GM in SALINE 1 100ML.BAG IVPB ONE (06:57)
[2022-07-04 07:32] LABS: Glucose,Whole Blood 250 mg/dL (70-110)
[2022-07-04] MEDS: DEXTROSE 5% IN WATER 1,000 ML with SODIUM BICARB (1 MEQ/ML) 150 ML IV SCH (07:39)
[2022-07-04] MEDS: DOCUSATE 100 MG CAP PO SCH (07:39)
[2022-07-04] MEDS: SODIUM CHLORIDE 0.9% 50 ML with VASOPRESSIN 20 UNIT IVPB SCH ×2 (07:40)
[2022-07-04] MEDS: polyethylene glycoL 3350 17 GM POWD.PACK PO SCH (07:40)
[2022-07-04] MEDS: IPRATROPIUM-ALBUTEROL 3 ML NEB INHALATION SCH ×3 (07:47→15:46)
[2022-07-04] MEDS: BUDESONIDE 1 MG/2 ML NEBU INHALATION SCH (07:47)
[2022-07-04] MEDS: PIPERACILLIN-TAZOBACTAM 3.375 GM in SODIUM CHLORIDE 0.9% 100 ML IVPB SCH ×2 (08:19→15:20)
[2022-07-04] MEDS: FAMOTIDINE 20 MG TAB PO SCH (08:19)
[2022-07-04] MEDS: LACOSAMIDE 150 MG TABLET PO SCH (08:19)
[2022-07-04] MEDS: CITALOPRAM HYDROBROMIDE 20 MG TAB PO SCH (08:19)
[2022-07-04] MEDS: GLYCOPYRROLATE 1 MG TAB PO SCH (08:20)
[2022-07-04] MEDS ORDERED: DEXTROSE 50% SYRINGE 50 ML IVP PRN ×2 (09:34)
--- NOTE | 2022-07-04 10:43 | P.PN ---
Subjective Patient is seen for follow-up for acute kidney injury. Patient is a 66-year-old female with history of acute kidney injury needing dialysis for about 1 month last year. Patient's serum creatinine had been as low as 2.2 in April 2021 but has been staying about 3.2-4.4 in May 2022. Underlying history of paraplegia after cervical spine surgery. Patient was admitted to the hospital with complaints of shortness of breath. She is currently in the ICU. Patient has been hypotensive needing pressors. Urine output has decreased. UA is suggestive of UTI. Cultures are pending. Patient is maintained on antibiotics. Patient and family were talked to regarding possible need for renal replacement therapy if renal function continues to worsen and they do not wish to proceed with any kind of dialysis. CODE STATUS is currently no code no intubation. This morning patient is less responsive. Urine output maintained at 35-40 mL an hour Serum creatinine is about the same at 2.5 mg/dL. Patient remains on bicarb drip which was started yesterday. Objective - Vital Signs Vital signs: Vital Signs Temp 98.0 F 07/04/22 08:00 Pulse 117 H 07/04/22 09:00 Resp 34 H 07/04/22 09:00 BP 100/54 07/04/22 08:00 Pulse Ox 89 L 07/04/22 09:00 FiO2 Intake & Output 07/03/22 07/04/22 07/04/22 18:59 06:59 18:59 Intake Total 2569.991 2748.441 950.319 Output Total 30 75 15 Balance 2539.991 2673.441 935.319 Weight 115.2 kg Intake: IV 1575 1600 475 Dextrose 5% in Water 1, 875 1500 375 000 ml @ 125 mls/hr IV . Q9H12M [facility] with Sodium Bicarb (1 Meq/ml) 150 ml Rx#:[id number] Piperacillin-Tazobactam 3 200 100 100 .375 gm In Sodium Chloride 0.9% 100 ml @ 25 mls/hr IVPB Q8HR [facility] Rx# :[id number] Sodium Chloride 0.9% 1, 500 000 ml @ 125 mls/hr IV . Q8H [facility] Rx#:[id number] Intake, IV Titration 554.991 563.441 310.319 Amount Heparin Sod,Pork in 0.45% 46.991 56.319 NaCl 25,000 unit In 0.45 % NaCl 1 250ml.bag @ 18 UNITS/KG/HR 19.595 mls/hr IV .[id number] [facility] Rx#: [id number] Norepinephrine 4 mg In 508 563.441 254.000 Sodium Chloride 0.9% 250 ml @ 0.05 MCG/KG/MIN 20. 738 mls/hr IV .[id number] [facility] Rx#:[id number] Tube Feeding 440 585 165 Output: Urine 30 75 15 Other: Voiding Method Indwelling Catheter Indwelling Catheter ABP, PAP, CO, CI - Last Documented Arterial Blood Pressure 116/36 - Exam Patient is sleepy but arousable She is maintained in a cervical collar Examination of the heart S1 and S2 Examination lungs bilateral breath sounds are heard Abdomen is soft nontender Examination lower extremities shows 1+ edema bilaterally R AND D LAB TECHNICIAN exam shows patient is paraplegic - Labs CBC & Chem 7: 07/04/22 04:26 07/04/22 04:26 Labs: Abnormal Lab Results - Last 24 Hours (Table) 07/03/22 07/03/22 07/03/22 Range/Units 11:15 11:15 19:02 WBC (3.8-10.6) k/uL RBC (3.80-5.40) m/uL Hgb (11.4-16.0) gm/dL Hct (34.0-46.0) % MCHC (31.0-37.0) g/dL Plt Count (150-450) k/uL APTT 71.1 H 49.1 H (22.0-30.0) sec Carbon Dioxide (22-30) mmol/L BUN (7-17) mg/dL Creatinine (0.52-1.04) mg/dL Glucose (74-99) mg/dL POC Glucose (mg/dL) 170 H (70-110) mg/dL Calcium (8.4-10.2) mg/dL 07/03/22 07/04/22 07/04/22 Range/Units 20:52 04:26 04:26 WBC 17.7 H (3.8-10.6) k/uL RBC 3.33 L (3.80-5.40) m/uL Hgb 10.2 L (11.4-16.0) gm/dL Hct 33.1 L (34.0-46.0) % MCHC 30.8 L (31.0-37.0) g/dL Plt Count 95 L (150-450) k/uL APTT 37.8 H (22.0-30.0) sec Carbon Dioxide (22-30) mmol/L BUN (7-17) mg/dL Creatinine (0.52-1.04) mg/dL Glucose (74-99) mg/dL POC Glucose (mg/dL) 192 H (70-110) mg/dL Calcium (8.4-10.2) mg/dL 07/04/22 07/04/22 Range/Units 04:26 07:30 WBC (3.8-10.6) k/uL RBC (3.80-5.40) m/uL Hgb (11.4-16.0) gm/dL Hct (34.0-46.0) % MCHC (31.0-37.0) g/dL Plt Count (150-450) k/uL APTT (22.0-30.0) sec Carbon Dioxide 19 L (22-30) mmol/L BUN 100 H (7-17) mg/dL Creatinine 2.56 H (0.52-1.04) mg/dL Glucose 244 H (74-99) mg/dL POC Glucose (mg/dL) 250 H (70-110) mg/dL Calcium 6.3 L* (8.4-10.2) mg/dL Microbiology - Last 24 Hours (Table) 07/01/22 15:42 Blood Culture - Preliminary Blood No Growth after 48 hours 07/01/22 15:59 Blood Culture - Preliminary Blood No Growth after 48 hours Assessment and Plan Assessment: 1. Acute kidney injury secondary to ATN from hypotension and sepsis. Renal function seems to have stabilized and there are no plans for renal replacement therapy 2. Chronic kidney disease NKF stage IV. Serum creatinine was 2.2 in April 2022 but most recently staying at about 3-4 mg/dL in early part of May 3. Septic shock maintained on antibiotics and pressors. Patient has ulcers and wound VAC on the back 4. Metabolic acidosis associated with acute kidney injury 5. Quadriplegia status post cervical spine surgery 6. Chronic oropharyngeal dysphagia currently with PEG tube 7. Acute bilateral femoral DVT Plan: Continue with IV bicarb No plans for renal replacement therapy Avoid nephrotoxic agents
--- NOTE | 2022-07-04 12:31 | P.PN ---
Subjective Progress Note Date: 07/04/22 66-year-old female patient, very poor historian, quadriplegic related to previous surgery to the neck that was complicated by development of quadriplegia. The patient is currently bedridden. She is nonverbal. She has a chronic sacral wound with a negative pressure wound VAC in place in her lumbar area. The patient has had a previous tracheostomy that was subsequently decannulated. The patient has a permanent active place for enteral feeding and nutritional support. The patient presented to the hospital because of worsening shortness of breath and the patient was in a ECF location and she was brought into the hospital because of increased dyspnea cough and congestion. The patient is unable to volunteer any significant history at this point in time. Investigation was done and the patient was found to have a white cell count of 12.3 with a hemoglobin 11.9 and a platelet count of 163. The coagulation profile was normal. D-dimer was very much elevated at 32. Based on that, the patient was given Doppler of the lower extremity and the patient was found to have bilateral DVTs, the right lower extremity showed a clot above the common femoral vein and the entire leg venous system was involved. Left lower extremity showed a positive DVT in the common femoral and popliteal. The patie nt accordingly was started on IV heparin. Rest of the blood work showed a creatinine of 1.5 consistent with chronic kidney disease, BUN of 68, sodium of 139 and a potassium level of 4.4 and a serum bicarb of 19. The anion gap was 18. The patient had a abnormal UA with 51 RBCs and 81 WBCs along with clumps, and the pro-calcitonin level was at 1.62 consistent with an underlying bacterial infection. The liver function tests were essentially within normal limits. The proBNP level was 2890 and a troponin was at 0.03. COVID 19 testing was negative. Influenza screen was negative. The patient was given a total of 3 L of IV fluids in the form of normal saline and the patient is currently on normal saline at the rate of 1 25 mL an hour. The patient was on a medical floor the patient became hypotensive she got transferred to the ICU where she was started on norepinephrine and currently norepinephrine is running at 0.1 mcg/kg per minute. The patient's condition was consistent with sepsis. The patient was febrile with a T-max of 103.8 and the patient was quite hypoxic with pulse ox of 80% and she was placed on 4 L approximately nasal cannula. Subsequently, the FiO2 was brought up to 11 L per minute nasal cannula to maintain a saturation above 90%. On 07/03/2022, patient is being seen for a follow-up. The patient admitted to the intensive care unit because of hypotension and sepsis. The patient for now remains hemodynamically unstable. She is less tachycardic although she c ontinues to have a component of sinus tachycardia and her heart rate is around 120. The overall fluid balance is positive as the patient was since his IV fluids and the patient remains on norepinephrine at a dose of 0.24 mg/kg per minute and the patient is also on a physiologic dose of vasopressin. The patient also received a total of 5 L of IV fluids. The chest x-ray showing some atelectatic changes in the right midlung. The patient is not having a significant respiratory distress and she is on 15 L about 2 by nasal cannula. She is a mouth breather. She has developed acute kidney injury. Creatinine is up to 2.5 with a 66. Creatinine from yesterday was at 2.1. At the same time, the patient has a serum bicarb of 14 and the patient was started bicarb infusion. Sodium is 142 with a potassium level of 4.4 and chloride of 112. The white cell count is at 10.7 with a hemoglobin of 11.9 and a platelet count of 118. The patient is currently receiving enteral feeding for nutritional support and the patient is on Vicodin ES at the rate of 40 mL an hour. She is interacting. Her last temperature spike was yesterday at 4 PM where she had a temperature of 102.8. Since then, she has been afebrile.pro-calcitonin level at the time of admission was 1.62 to just about underlying bacterial infection. The patient remains on broad-spectrum antibiotics and the patient is currently on IV Zosyn. 07/04/2022, the patient is doing extremely poor and the patient's is less sponsor more lethargic compared to yesterday. The patient remains in a shock state, on pressors with norepinephrine which is running at 0.13 mics and respiratory per minute and the present doses of been decreased since yesterday and the patient is also on a physiologic dose of vasopressin. The patient is on 15 L of oxygen by nasal cannula. The patient has been a positive fluid balance of 5.2 L in the urine output is low in the order of 5-10 mL's an hour. The patient remains on IV Zosyn. She remains on a bicarb infusion at the rate of 125 mL an hour. The white cell count today's at 70 with hemoglobin 10.2 and a platelet count of 95 and there has been drop in the platelet count is a patient is on IV heparin for bilateral lower extremity DVTs. Sodium is 142 with a potassium level of 3.9 and a chloride of 107 with a bicarb of 19 and a BUN of 100 and the creatinine is 2.56 and is essentially comparable to yesterday. The patient has an elevation in blood sugar as the patient is receiving D5 bicarb i nfusion and his sugars are running high and we are going to start on Levemir insulin in addition to his vascular coverage. On a separate note, the patient was started on vital AFR enteral feeding and temperature support and the patient is having massive amount of liquidy diarrhea for now. Rule out underlying C. diff colitis. Objective - Vital Signs Vital signs: Vital Signs Temp 98.0 F 07/04/22 08:00 Pulse 117 H 07/04/22 09:00 Resp 34 H 07/04/22 09:00 BP 100/54 07/04/22 08:00 Pulse Ox 89 L 07/04/22 09:00 FiO2 Intake & Output 07/03/22 07/04/22 07/04/22 18:59 06:59 18:59 Intake Total 2569.991 2748.441 950.319 Output Total 30 75 15 Balance 2539.991 2673.441 935.319 Weight 115.2 kg Intake: IV 1575 1600 475 Dextrose 5% in Water 1, 875 1500 375 000 ml @ 125 mls/hr IV . Q9H12M [facility] with Sodium Bicarb (1 Meq/ml) 150 ml Rx#:[id number] Piperacillin-Tazobactam 3 200 100 100 .375 gm In Sodium Chloride 0.9% 100 ml @ 25 mls/hr IVPB Q8HR [facility] Rx# :[id number] Sodium Chloride 0.9% 1, 500 000 ml @ 125 mls/hr IV . Q8H [facility] Rx#:[id number] Intake, IV Titration 554.991 563.441 310.319 Amount Heparin Sod,Pork in 0.45% 46.991 56.319 NaCl 25,000 unit In 0.45 % NaCl 1 250ml.bag @ 18 UNITS/KG/HR 19.595 mls/hr IV .[id number] [facility] Rx#: [id number] Norepinephrine 4 mg In 508 563.441 254.000 Sodium Chloride 0.9% 250 ml @ 0.05 MCG/KG/MIN 20. 738 mls/hr IV .[id number] [facility] Rx#:[id number] Tube Feeding 440 585 165 Output: Urine 30 75 15 Other: Voiding Method Indwelling Catheter Indwelling Catheter ABP, PAP, CO, CI - Last Documented Arterial Blood Pressure 116/36 - Exam GENERAL EXAM: Alert, very pleasant, 66-year-old female, 15 L of oxygen pulse ox 92% comfortable in no apparent distress.the patient is currently wearing a hard neck collar, more lethargic compared to yesterday HEAD: Normocephalic/atraumatic. EYES: Normal reaction of pupils, equal size. Conjunctiva pink, sclera white. NOSE: Clear with pink turbinates. THROAT: No erythema or exudates. NECK: No masses, no JVD, no thyroid enlargement, no adenopathy. CHEST: No chest wall deformity. Symmetrical expansion. LUNGS: Equal air entry with no crackles, wheeze, rhonchi or dullness.breath sounds are diminished bilaterally CVS: Regular rate and rhythm, normal S1 and S2, no gallops, no murmurs, no rubs ABDOMEN: Soft, nontender. No hepatosplenomegaly, normal bowel sounds, no guarding or rigidity. EXTREMITIES: No clubbing, no edema, no cyanosis, 2+ pulses and upper and lower extremities. MUSCULOSKELETAL: Muscle atrophy in all 4 extremities along with contractures and weakness SPINE: No scoliosis or deformity SKIN: No rashes, the patient has a wound VAC to her lumbar area for an underlying chronic wound CENTRAL NERVOUS SYSTEM: patient is unable to communicate at this point in time No focal deficits, tone is normal in all 4 extremities. More lethargic PSYCHIATRIC: unable to perform - Labs CBC & Chem 7: 07/04/22 04:26 07/04/22 04:26 Labs: Abnormal Lab Results - Last 24 Hours (Table) 07/03/22 07/03/22 07/04/22 Range/Units 19:02 20:52 04:26 WBC (3.8-10.6) k/uL RBC (3.80-5.40) m/uL Hgb (11.4-16.0) gm/dL Hct (34.0-46.0) % MCHC (31.0-37.0) g/dL Plt Count (150-450) k/uL APTT 49.1 H 37.8 H (22.0-30.0) sec Carbon Dioxide (22-30) mmol/L BUN (7-17) mg/dL Creatinine (0.52-1.04) mg/dL Glucose (74-99) mg/dL POC Glucose (mg/dL) 192 H (70-110) mg/dL Calcium (8.4-10.2) mg/dL 07/04/22 07/04/22 07/04/22 Range/Units 04:26 04:26 07:30 WBC 17.7 H (3.8-10.6) k/uL RBC 3.33 L (3.80-5.40) m/uL Hgb 10.2 L (11.4-16.0) gm/dL Hct 33.1 L (34.0-46.0) % MCHC 30.8 L (31.0-37.0) g/dL Plt Count 95 L (150-450) k/uL APTT (22.0-30.0) sec Carbon Dioxide 19 L (22-30) mmol/L BUN 100 H (7-17) mg/dL Creatinine 2.56 H (0.52-1.04) mg/dL Glucose 244 H (74-99) mg/dL POC Glucose (mg/dL) 250 H (70-110) mg/dL Calcium 6.3 L* (8.4-10.2) mg/dL Microbiology - Last 24 Hours (Table) 07/01/22 15:42 Blood Culture - Preliminary Blood No Growth after 48 hours 07/01/22 15:59 Blood Culture - Preliminary Blood No Growth after 48 hours Assessment and Plan Plan: acute sepsis, likely a urinary source. At the same time, the patient is developing massive liquidy diarrhea with a possibility of underlying C. diff colitis. The patient continues to be hypotensive and in a shock state. Other sources such as lungs or wound infection are palpable less likely. The patient's pro-calcitonin level is elevated consistent with bacterial infection and the patient is currently hypotensive on pressors for hemodynamic support and the patient will be started on broad-spectrum antibiotics. The patient remains on IV Zosyn. The patient remains pressor dependent despite being adequately resuscitated IV fluids. The patient is oliguric and the patient has also developed an acute kidney injury Acute hypotension likely secondary to sepsis, see above Acute diarrhea, see above, rule out underlying C. diff colitis acute hypoxic respiratory failure secondary to above. Chest x-rays revealing atelectatic changes in lung bases, and the patient remains on 15 L of O2 nasal cannula Acute kidney injury, oliguric and the patient's creatinine is on the rise Acute metabolic acidosis Mild leukocytosis, on the rise Chronic stage III kidney disease with a component of an acute kidney injury Bilateral DVTs of the lower eczematous currently on IV heparin Mild thrombocytopenia quadriplegia related to a previous C-spine surgery, the patient is nonambulatory and bedridden. The patient undergone previous cervical spine surgery PEG tube and enteral feeding and nutritional support Chronic anxiety/depression Diabetes mellitus type 2, not receiving any treatment on an outpatient basis Diabetic peripheral neuropathy Previous history of UTIs Chronic dysphagia and the patient receives enteral feeding for nutritional support. The patient has neck injury due to a cervical spine surgery surgical wound dehiscence with nonhealing ulceration of that and muscle involvement without necrosis and the patient has a stage II pressure ulcer in the coccyx and the right ankle. history of seizure activity currently on Vimpat plan Keep the patient on 15 L of nasal cannula Bicarb infusion to be continued Fecal management system Check stool for C. diff Hold enteral feeding for now Started patient on Levemir insulin 12 units along with his vascular coverage Pressors and the patient is currently on norepinephrine and vasopressin and norepinephrine dose is currently at 0.1 mcg/kg per minute Continue IV Zosyn Continue IV heparin regarding bilateral lower extremity DVTs Check HIT antibodies wound VAC services Patient is quite debilitated with a DNR/DNI CODE STATUS Echocardiogram was done yesterday and the results are still pending Ultrasound the kidneys Check a baseline cortisol level are high and there is no signs of adrenal insufficiency Nephrology consultation appreciated We'll continue to follow and the patient IN ICU. Prognosis poor. Condition is critical and this evaluation was done more than 30 minutes. DNR/DNI CODE STATUS. Arterial line was inserted yesterday. Time with Patient: Greater than 30
[2022-07-04] MEDS: INSULIN ASPART (NovoLOG) 100 UNIT/ML VIAL SQ SCH ×2 (13:42→15:17)
[2022-07-04 13:50] VITALS: BP 102/39; TEMP 97.6
--- NOTE | 2022-07-04 14:17 | P.PN ---
Progress Note - Text Progress Note Date: 07/04/22 Chief Complaint: Fever This is a 66-year-old patient, who was recently in the hospital from June 05 through June 09. Patient had undergone lumbar surgery by had [facility]. It seems on the medical floor patient had cervical spine injury. Has a neck collar in place. Patient then came in on June 05, had worsening wound in the lower back and patient was transferred to [facility]. On June 09 Doppler ultrasound reported positive for DVT in the common femoral vein and deep femoral vein. In a small on the left side femoral vein. Patient is put on IV heparin. Was seen by vascular. Patient is due for cervical spine surgery down the road. I spoke to the surgeon from [facility] from the ER yesterday. Patient's wound had been cleaned off. Patient is due to return next Tuesday to have stitches placed. Patient had a wound VAC placed. Repeat ultrasound at [facility] was negative for DVT. Patient has been getting PEG tube feeding. Patient was sent in from rehab after having pulse ox of 80% on 4 L. Tachycardic. An isolated temperature to 103. As a discussed with the surgeon from [facility] it was felt best to treat the patient here for infection and transfer the patient if any surgical intervention was needed. Patient started on IV heparin. ID and pulmonary was consulted. July 02: On the course of late evening and overnight patient dropped her blood pressure. He remained febrile. Septic shock. Patient moved to the ICU. Started IV fluid bolus levo fed. IV Zosyn. at the bedside. Discussed. 2 feedings are being started. July 03: ICU: Being visited by family. Patient remains hypertensive. IV levo fed and vasopressin. IV fluids. 13 L high flow oxygen. Sinus tachycardia. Febrile. Tired. IV Zosyn. Seen by vascular. For DVT. Continue IV heparin. July 04: ICU: Hypotensive. Drips include levo fed, vasopressin, IV heparin. IV bicarbonate. Remains on 13 L of oxygen. Diarrhea. Fecal management system place. IV Zosyn. Active Medications Acetaminophen (Acetaminophen Tab 325 Mg Tab) 650 mg PO Q6HR PRN PRN Reason: Fever and/ or Pain Last Admin: 07/02/22 19:00 Dose: 650 mg Albuterol/Ipratropium (Ipratropium-Albuterol 3 Ml Neb) 3 ml INHALATION RT-QID [facility] Last Admin: 07/04/22 11:36 Dose: Not Given Amitriptyline HCl (Amitriptyline Hcl 25 Mg Tab) 75 mg PO HS [facility] Last Admin: 07/03/22 20:26 Dose: 75 mg Atorvastatin Calcium (Atorvastatin 20 Mg Tab) 20 mg PO HS [facility] Last Admin: 07/03/22 20:26 Dose: 20 mg Budesonide (Budesonide 1 Mg/2 Ml Nebu) 1 mg INHALATION RT-BID [facility] Last Admin: 07/04/22 07:47 Dose: 1 mg Calcium Acetate (Calcium Acetate 667 Mg Tab) 667 mg PO TID@0500,1300,2100 [facility] Last Admin: 07/04/22 05:38 Dose: 667 mg Citalopram Hydrobromide (Citalopram Hydrobromide 20 Mg Tab) 40 mg PO DAILY [facility] Last Admin: 07/04/22 08:19 Dose: 40 mg Dextrose/Water (Dextrose 50% Syringe 50 Ml) 25 ml IVP PER PROTOCOL PRN; Protocol PRN Reason: Hypoglycemia Dextrose/Water (Dextrose 50% Syringe 50 Ml) 50 ml IVP PER PROTOCOL PRN; Protocol PRN Reason: Hypoglycemia Famotidine (Famotidine 20 Mg Tab) 20 mg PO DAILY [facility] Last Admin: 07/04/22 08:19 Dose: 20 mg Gabapentin (Gabapentin 100 Mg Cap) 200 mg PO [facility] Glycopyrrolate (Glycopyrrolate 1 Mg Tab) 1 mg PO DAILY [facility] Last Admin: 07/04/22 08:20 Dose: 1 mg Heparin Sodium (Porcine) (Heparin Sodium 1,000 Un/Ml (10ml Vl)) 0 unit IV PER PROTOCOL PRN; Protocol PRN Reason: Low PTT Last Admin: 07/04/22 07:14 Dose: 4,352 unit Heparin Sodium/Sodium Chloride (25,000 unit/ Sodium Chloride) 250 mls @ 19.595 mls/hr IV .[id number] [facility]; Protocol Last Titration: 07/04/22 07:13 Dose: 6.64 units/kg/hr, 7.228 mls/hr Norepinephrine Bitartrate 4 mg (/ Sodium Chloride) 254 mls @ 20.738 mls/hr IV .[id number] [facility]; Protocol Last Titration: 07/04/22 13:43 Dose: Infused Piperacillin Sod/Tazobactam (Sod 3.375 gm/ Sodium Chloride) 100 mls @ 25 mls/hr IVPB Q8HR [facility]; Protocol Last Admin: 07/04/22 08:19 Dose: 25 mls/hr Vasopressin 20 unit/ Sodium (Chloride) 51 mls @ 4.59 mls/hr IVPB .Q11H7M [facility] Last Admin: 07/04/22 07:40 Dose: 4.59 mls/hr Sodium Bicarbonate 150 ml/ (Dextrose/Water) 1,150 mls @ 125 mls/hr IV .Q9H12M [facility] Last Admin: 07/04/22 07:39 Dose: 125 mls/hr Insulin Aspart (Insulin Aspart (Novolog) 100 Unit/Ml Vial) 0 unit SQ ACHS [facility]; Protocol Last Admin: 07/04/22 13:42 Dose: Not Given Insulin Detemir (Insulin Detemir (Levemir) 100 Unit/Ml Syr) 12 unit SQ DAILY@0700 [facility] Lacosamide (Lacosamide 150 Mg Tablet) 150 mg PO BID@0800,2000 [facility] Last Admin: 07/04/22 08:19 Dose: 150 mg Lorazepam (Lorazepam 0.5 Mg Tab) 0.5 mg PO TID@0500,1300,2100 [facility] Last Admin: 07/04/22 05:38 Dose: 0.5 mg Methocarbamol (Methocarbamol 750 Mg Tab) 750 mg PO TID@0500,1300,2100 [facility] Last Admin: 07/04/22 05:38 Dose: 750 mg Miscellaneous Information (Magnesium Replacement Protocol 1 Each Misc) 1 each MISCELLANE DAILY PRN; Protocol PRN Reason: Per Protocol Multi-Ingred Cream/Lotion/Oil/Oint (Hydrophilic Cream 180 Gm Tube) 1 applic TOPICAL DAILY [facility]; Protocol Last Admin: 07/03/22 19:23 Dose: 1 applic Naloxone HCl (Naloxone 0.4 Mg/Ml 1 Ml Vial) 0.2 mg IV Q2M PRN PRN Reason: Opioid Reversal Past medical history to include: Chronic oropharyngeal dysphagia following neck injury following surgery, on dysphagia 3 diet with nectar thick liquids. 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 Ex-smoker. Family history: Reviewed, noncontributory to presentation On examination: VITAL SIGNS: 97.6, 112, 30, 149/45, 92% on 15 L GENERAL APPEARANCE: , laying in bed tired HEENT: Normal external appearance of nose and ear. Oral cavity dry mucous membranes EYES: Pupils equal. Conjunctiva normal. NECK: Hard neck collar RESPIRATORY: Respiratory effort increased. Lungs decreased breath sounds CARDIOVASCULAR: First and second sounds normal. No edema. ABDOMEN: Soft. Liver and spleen not palpable. No tenderness. No mass palpable. PEG tube. Wound VAC on the lower back PSYCHIATRY: Able to answer simple questions NEUROLOGICAL: Power 1/5 in both arms and legs. Sensation present. INVESTIGATIONS, reviewed in the clinical context: July 04: WBC 17.7 hemoglobin 10.2 potassium 3.9 BUN 100 creatinine 2.56 July 03: WBC 10.7 hemoglobin 11.9 which is 118 potassium 4.4 white count 14 BUN 86 creatinine 2.50 July 02: WBC 11.6 hemoglobin 11.3 platelets 166 potassium 4.4 BUN 75 creatinine 2.04 White count 12.3 hemoglobin 11.9 platelets 163 sodium 139 potassium 4.4. 68 creatinine 1.51 Pro-calcitonin 1.6 to UA positive for leukoesterase, negative for nitrite, WBC Coronavirus/influenza type A/type B: Not detected EKG tracing personally reviewed by me-sinus tachycardia, rate 126 Chest x-ray film personally reviewed by me-possible right basilar infiltrate Doppler ultrasound: Right leg: Entire leg is clotted starting above the, femoral vein and the great saphenous vein junction. Popliteal vein view limited. Left leg: Thrombus seen in the common femoral vein and above the common femoral vein and great saphenous vein junction. Popliteal vein view limited. Previous labs: BUN 124 creatinine 4.4-1 06/09/2022 Assessment and plan: -Severe sepsis, combination of pneumonia/UTI. source could be pulmonary given hypoxemia, probable UTI. Infected postsurgical wound itself could be a source which is a wound VAC in place: Not improving IV Zosyn. -Septic shock, not improving IV fluids. Levo fed and vasopressin -Acute severe hypoxic respiratory failure from pneumonia: Not improving 15 L nasal cannula -Acute DVT: Right leg: Entire leg is clotted starting above the, femoral vein and the great saphenous vein junction. Popliteal vein view limited. Left leg: Thrombus seen in the common femoral vein and above the common femoral vein and great saphenous vein junction. Popliteal vein view limited. IV heparin. Seen by vascular, Dr. Cordoba. No further intervention -Chronic oropharyngeal dysphagia, following neck injury following cervical spine surgery Last admission Seen by speech therapist. Had been on dysphagia level III diet with nectar thick liquids. Assist 1:1. We'll confirm his if patient is taking his diet prior to admission resume the same. -PEG tube feeding for supplemental feeding -chronic kidney disease stage 3 , probably secondary to diabetic nephropathy Follow renal function -Acute kidney injury, from ATN from sepsis and hypertension: Not improving Consult nephrology -Acute COPD exacerbation, in a previous smoker DuoNeb. Pulmicort - metabolic acidosis from renal failure: Still improvement sodium bicarbonate drip -Diabetic peripheral neuropathy Neurontin 200 mg daily at bedtime -Depression Celexa -Hyperlipidemia Lipitor -Quadriparesis from cervical spine injury. -Chronic medical debility -Deep lower back wound, a recent operative site. Surgeon had [facility]. Wound was debrided last week had [place]. Patient is due to return for closing of stitches. Currently-wound VAC. -No code with instructions IV levo fed, IV vasopressin. IV sodium bicarbonate. IV heparin.--High flow oxygen. Other supportive care to continue. Follow with stretcher leveler operator, nephro logy. Updated family at the bedside.
--- NOTE | 2022-07-04 17:07 | P.PN ---
Subjective Progress Note Date: 07/03/22 Principal diagnosis: Sepsis Patient is a 66-year-old female with recent comorbidities of lumbar surgical site infection with Pseudomonas in this patient who is status post surgical debridement of the wound after dehiscence and wound VAC application, presenting to this hospital with increasing shortness of breath and fever. On today's evaluation that is 07/03/2022, the patient did spike a fever of 101F this morning, the patient remains to be lethargic and unable to provide any history, no vomiting no diarrhea or any other changes reported by nursing staff Objective - Vital Signs Vital signs: Vital Signs Temp 100.3 F H 07/03/22 12:00 Pulse 130 H 07/03/22 15:00 Resp 27 H 07/03/22 15:00 BP 102/64 07/03/22 14:00 Pulse Ox 91 L 07/03/22 13:00 FiO2 Intake & Output 07/02/22 07/03/22 07/03/22 18:59 06:59 18:59 Intake Total 3205.460 6009.279 1720.991 Output Total 60 58 25 Balance 2464.728 1763.279 1695.991 Weight 108.862 kg 108.1 kg Intake: IV 1375 3700 1100 Dextrose 5% in Water 1, 500 000 ml @ 125 mls/hr IV . Q9H12M [facility] with Sodium Bicarb (1 Meq/ml) 150 ml Rx#:[id number] Piperacillin-Tazobactam 3 200 .375 gm In Sodium Chloride 0.9% 100 ml @ 25 mls/hr IVPB Q8H [facility] Rx#: [id number] Piperacillin-Tazobactam 3 100 .375 gm In Sodium Chloride 0.9% 100 ml @ 25 mls/hr IVPB Q8HR [facility] Rx# :[id number] Sodium Chloride 0.9% 1, 1375 1500 500 000 ml @ 125 mls/hr IV . Q8H [facility] Rx#:[id number] Sodium Chloride 0.9% 1, 2000 000 ml @ 999 mls/hr IV . Q1H1M [facility] Rx#:[id number] Intake, IV Titration 945.726 5224.279 300.991 Amount Heparin Sod,Pork in 0.45% 215.432 79.292 46.991 NaCl 25,000 unit In 0.45 % NaCl 1 250ml.bag @ 18 UNITS/KG/HR 19.595 mls/hr IV .[id number] [facility] Rx#: [id number] Magnesium Sulfate-D5w Pmx 100 1 gm In Dextrose/Water 1 100ml.bag @ 100 mls/hr IVPB Q1H [facility] Rx#: [id number] Norepinephrine 4 mg In 254.000 958.987 254 Sodium Chloride 0.9% 250 ml @ 0.05 MCG/KG/MIN 20. 738 mls/hr IV .[id number] [facility] Rx#:[id number] Tube Feeding 40 340 320 Output: Urine 60 58 25 Other: Voiding Method Indwelling Catheter Indwelling Catheter ABP, PAP, CO, CI - Last Documented Arterial Blood Pressure 152/44 - Exam GENERAL DESCRIPTION: Middle-aged female lying in bed in no distress RESPIRATORY SYSTEM: Unlabored breathing , decreased breath sounds at bases HEART: S1 S2 regular rate and rhythm , ABDOMEN: Soft , no tenderness EXTREMITIES: No edema feet - Labs CBC & Chem 7: 07/04/22 04:26 07/04/22 04:26 Labs: Abnormal Lab Results - Last 24 Hours (Table) 07/02/22 07/02/22 07/02/22 Range/Units 18:00 18:02 21:01 WBC (3.8-10.6) k/uL Plt Count (150-450) k/uL APTT 130.6 H* (22.0-30.0) sec Chloride (98-107) mmol/L Carbon Dioxide (22-30) mmol/L BUN (7-17) mg/dL Creatinine (0.52-1.04) mg/dL Glucose (74-99) mg/dL POC Glucose (mg/dL) 146 H 133 H (70-110) mg/dL Calcium (8.4-10.2) mg/dL 07/03/22 07/03/22 07/03/22 Range/Units 01:53 05:00 05:00 WBC 10.7 H (3.8-10.6) k/uL Plt Count 118 L (150-450) k/uL APTT 104.6 H* (22.0-30.0) sec Chloride 112 H (98-107) mmol/L Carbon Dioxide 14 L (22-30) mmol/L BUN 86 H (7-17) mg/dL Creatinine 2.50 H (0.52-1.04) mg/dL Glucose 187 H (74-99) mg/dL POC Glucose (mg/dL) (70-110) mg/dL Calcium 6.8 L (8.4-10.2) mg/dL 07/03/22 07/03/22 07/03/22 Range/Units 07:00 07:01 11:15 WBC (3.8-10.6) k/uL Plt Count (150-450) k/uL APTT (22.0-30.0) sec Chloride (98-107) mmol/L Carbon Dioxide (22-30) mmol/L BUN (7-17) mg/dL Creatinine (0.52-1.04) mg/dL Glucose (74-99) mg/dL POC Glucose (mg/dL) 200 H 187 H 170 H (70-110) mg/dL Calcium (8.4-10.2) mg/dL 07/03/22 Range/Units 11:15 WBC (3.8-10.6) k/uL Plt Count (150-450) k/uL APTT 71.1 H (22.0-30.0) sec Chloride (98-107) mmol/L Carbon Dioxide (22-30) mmol/L BUN (7-17) mg/dL Creatinine (0.52-1.04) mg/dL Glucose (74-99) mg/dL POC Glucose (mg/dL) (70-110) mg/dL Calcium (8.4-10.2) mg/dL Microbiology - Last 24 Hours (Table) 07/01/22 15:42 Blood Culture - Preliminary Blood No Growth after 24 hours 07/01/22 15:59 Blood Culture - Preliminary Blood No Growth after 24 hours Assessment and Plan (1) Fever Current Visit: Yes Status: Acute Code(s): R50.9 - FEVER, UNSPECIFIED SNOMED Code(s): 007115045 Plan: 1patient presented to hospital with sepsis in this patient did have a fever ta chycardia hypoxemia source likely multifactorial concern for possible pneumonia/UTI in this patient with a complicated course and recently completed course of antibiotic for the lumbar wound infection with Pseudomonas. 2 blood and local culture are currently pending 3-patient to continue with the Zosyn while waiting for the culture to finalize 4local wound care to continue per the wound care team Time with Patient: Less than 30
--- NOTE | 2022-07-04 17:08 | P.PN ---
Subjective Progress Note Date: 07/04/22 Principal diagnosis: Sepsis Patient is a 66-year-old female with recent comorbidities of lumbar surgical site infection with Pseudomonas in this patient who is status post surgical debridement of the wound after dehiscence and wound VAC application, presenting to this hospital with increasing shortness of breath and fever. On today's evaluation that is 07/04/2022, the patient is afebrile this morning, the patient remains to be lethargic and unable to provide any history, patient has developed significant diarrhea for which fecal management system has been inserted, no other changes reported by the nursing staff Objective - Vital Signs Vital signs: Vital Signs Temp 97.6 F 07/04/22 12:00 Pulse 112 H 07/04/22 14:00 Resp 26 H 07/04/22 14:00 BP 102/39 07/04/22 12:00 Pulse Ox 90 L 07/04/22 14:00 FiO2 Intake & Output 07/03/22 07/04/22 07/04/22 18:59 06:59 18:59 Intake Total 2569.991 2748.441 1204.319 Output Total 30 75 15 Balance 2539.991 2673.441 1189.319 Weight 115.2 kg Intake: IV 1575 1600 475 Dextrose 5% in Water 1, 875 1500 375 000 ml @ 125 mls/hr IV . Q9H12M [facility] with Sodium Bicarb (1 Meq/ml) 150 ml Rx#:[id number] Piperacillin-Tazobactam 3 200 100 100 .375 gm In Sodium Chloride 0.9% 100 ml @ 25 mls/hr IVPB Q8HR [facility] Rx# :[id number] Sodium Chloride 0.9% 1, 500 000 ml @ 125 mls/hr IV . Q8H [facility] Rx#:[id number] Intake, IV Titration 554.991 563.441 564.319 Amount Heparin Sod,Pork in 0.45% 46.991 56.319 NaCl 25,000 unit In 0.45 % NaCl 1 250ml.bag @ 18 UNITS/KG/HR 19.595 mls/hr IV .[id number] [facility] Rx#: [id number] Norepinephrine 4 mg In 508 563.441 508.000 Sodium Chloride 0.9% 250 ml @ 0.05 MCG/KG/MIN 20. 738 mls/hr IV .[id number] [facility] Rx#:[id number] Tube Feeding 440 585 165 Output: Urine 30 75 15 Other: Voiding Method Indwelling Catheter Indwelling Catheter Indwelling Catheter ABP, PAP, CO, CI - Last Documented Arterial Blood Pressure 149/41 - Exam GENERAL DESCRIPTION: Middle-aged female lying in bed in no distress RESPIRATORY SYSTEM: Unlabored breathing , decreased breath sounds at bases HEART: S1 S2 regular rate and rhythm , ABDOMEN: Soft , no tenderness EXTREMITIES: No edema feet - Labs CBC & Chem 7: 07/04/22 04:26 07/04/22 04:26 Labs: Abnormal Lab Results - Last 24 Hours (Table) 07/03/22 07/03/22 07/04/22 Range/Units 19:02 20:52 04:26 WBC (3.8-10.6) k/uL RBC (3.80-5.40) m/uL Hgb (11.4-16.0) gm/dL Hct (34.0-46.0) % MCHC (31.0-37.0) g/dL Plt Count (150-450) k/uL APTT 49.1 H 37.8 H (22.0-30.0) sec Carbon Dioxide (22-30) mmol/L BUN (7-17) mg/dL Creatinine (0.52-1.04) mg/dL Glucose (74-99) mg/dL POC Glucose (mg/dL) 192 H (70-110) mg/dL Calcium (8.4-10.2) mg/dL 07/04/22 07/04/22 07/04/22 Range/Units 04:26 04:26 07:30 WBC 17.7 H (3.8-10.6) k/uL RBC 3.33 L (3.80-5.40) m/uL Hgb 10.2 L (11.4-16.0) gm/dL Hct 33.1 L (34.0-46.0) % MCHC 30.8 L (31.0-37.0) g/dL Plt Count 95 L (150-450) k/uL APTT (22.0-30.0) sec Carbon Dioxide 19 L (22-30) mmol/L BUN 100 H (7-17) mg/dL Creatinine 2.56 H (0.52-1.04) mg/dL Glucose 244 H (74-99) mg/dL POC Glucose (mg/dL) 250 H (70-110) mg/dL Calcium 6.3 L* (8.4-10.2) mg/dL Microbiology - Last 24 Hours (Table) 07/01/22 15:42 Blood Culture - Preliminary Blood No Growth after 48 hours 07/01/22 15:59 Blood Culture - Preliminary Blood No Growth after 48 hours Assessment and Plan (1) Fever Current Visit: Yes Status: Acute Code(s): R50.9 - FEVER, UNSPECIFIED SNOMED Code(s): 613629441 Plan: 1patient presented to hospital with sepsis in this patient did have a fever tachycardia hypoxemia source likely multifactorial concern for possible pneumonia/UTI in this patient with a complicated course and recently completed course of antibiotic for the lumbar wound infection with Pseudomonas. 2 blood and urine culture are currently pending 3-patient did have resolution of the fever and will continue with the Zosyn while waiting for the culture to finalize 4diarrhea possible antibiotic associated stool for C. diff has been requested and will be treated if positive Time with Patient: Less than 30
--- NOTE | 2022-07-04 18:26 | P.DS ---
Providers Date of admission: 07/01/22 18:59 Expected date of discharge: 07/04/22 Attending physician: Rob Hood Consults: 07/01/22 18:59 Consult Physician Routine Consulting Provider: Say Reza Consult Reason/Comments: Wound evaluation Do you want consulting provider notified?: Yes 07/02/22 07:48 Consult Physician Routine Consulting Provider: Jacqueline Rosenbuam Consult Reason/Comments: ICU management Do you want consulting provider notified?: Already Contacted 07/02/22 10:49 Consult Physician Routine Consulting Provider: Nick Alford Consult Reason/Comments: GFR Do you want consulting provider notified?: Yes 07/02/22 15:58 Consult Physician Routine Consulting Provider: Nadia Reynaga Consult Reason/Comments: Extensive DVT Do you want consulting provider notified?: Yes Primary care physician: [facility] Course: Chief Complaint: Fever This is a 66-year-old patient, who was recently in the hospital from June 05 through June 09. Patient had undergone lumbar surgery by had [facility]. It seems on the medical floor patient had cervical spine injury. Has a neck collar in place. Patient then came in on June 05, had worsening wound in the lower back and patient was transferred to [facility]. On June 09 Doppler ultrasound reported positive for DVT in the common femoral vein and deep femoral vein. In a small on the left side femoral vein. Patient is put on IV heparin. Was seen by vascular. Patient is due for cervical spine surgery down the road. I spoke to the surgeon from [facility] from the ER yesterday. Patient's wound had been cleaned off. Patient is due to return next Tuesday to have stitches placed. Patient had a wound VAC placed. Repeat ultrasound at [facility] was negative for DVT. Patient has been getting PEG tube feeding. Patient was sent in from rehab after having pulse ox of 80% on 4 L. Tachycardic. An isolated temperature to 103. As a discussed with the surgeon from [facility] it was felt best to treat the patient here for infection and transfer the patient if any surgical intervention was needed. Patient started on IV heparin. ID and pulmonary was consulted. July 02: On the course of late evening and overnight patient dropped her blood pressure. He remained febrile. Septic shock. Patient moved to the ICU. Started IV fluid bolus levo fed. IV Zosyn. at the bedside. Discussed. 2 feedings are being started. July 03: ICU: Being visited by family. Patient remains hypertensive. IV levo fed and vasopressin. IV fluids. 13 L high flow oxygen. Sinus tachycardia. Febrile. Tired. IV Zosyn. Seen by vascular. For DVT. Continue IV heparin. July 04: ICU: Hypotensive. Drips include levo fed, vasopressin, IV heparin. IV bicarbonate. Remains on 13 L of oxygen. Diarrhea. Fecal management system place. IV Zosyn. Patient later today . I did speak to the on the phone following that. Past medical history to include: Chronic oropharyngeal dysphagia following neck injury following surgery, on dysphagia 3 diet with nectar thick liquids. 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 Ex-smoker. Family history: Reviewed, noncontributory to presentation INVESTIGATIONS, reviewed in the clinical context: July 04: WBC 17.7 hemoglobin 10.2 potassium 3.9 BUN 100 creatinine 2.56 July 03: WBC 10.7 hemoglobin 11.9 which is 118 potassium 4.4 white count 14 BUN 86 creatinine 2.50 July 02: WBC 11.6 hemoglobin 11.3 platelets 166 potassium 4.4 BUN 75 creatinine 2.04 White count 12.3 hemoglobin 11.9 platelets 163 sodium 139 potassium 4.4. 68 creatinine 1.51 Pro-calcitonin 1.6 to UA positive for leukoesterase, negative for nitrite, WBC Coronavirus/influenza type A/type B: Not detected EKG tracing personally reviewed by me-sinus tachycardia, rate 126 Chest x-ray film personally reviewed by me-possible right basilar infiltrate Doppler ultrasound: Right leg: Entire leg is clotted starting above the, femoral vein and the great saphenous vein junction. Popliteal vein view limited. Left leg: Thrombus seen in the common femoral vein and above the common femoral vein and great saphenous vein junction. Popliteal vein view limited. Previous labs: BUN 124 creatinine 4.4-1 06/09/2022 Cause of : Sepsis from UTI Assessment and plan: -Severe sepsis, combination of pneumonia/UTI. source could be pulmonary given hypoxemia, probable UTI. Infected postsurgical wound itself could be a source which is a wound VAC in place: Not improving IV Zosyn. -Septic shock, not improving IV fluids. Levo fed and vasopressin -Acute severe hypoxic respiratory failure from pneumonia: Not improving 15 L nasal cannula -Acute DVT: Right leg: Entire leg is clotted starting above the, femoral vein and the great saphenous vein junction. Popliteal vein view limited. Left leg: Thrombus seen in the common femoral vein and above the common femoral vein and great saphenous vein junction. Popliteal vein view limited. IV heparin. Seen by vascular, Dr. Cordoba. No further intervention -Chronic oropharyngeal dysphagia, following neck injury following cervical spine surgery Last admission Seen by speech therapist. Had been on dysphagia level III diet with nectar thick liquids. Assist 1:1. We'll confirm his if patient is taking his diet prior to admission resume the same. -PEG tube feeding for supplemental feeding -chronic kidney disease stage 3 , probably secondary to diabetic nephropathy Follow renal function -Acute kidney injury, from ATN from sepsis and hypertension: Not improving Consult nephrology -Acute COPD exacerbation, in a previous smoker [place]. Pulmicort - metabolic acidosis from renal failure: Still improvement sodium bicarbonate drip -Diabetic peripheral neuropathy Neurontin 200 mg daily at bedtime -Depression Celexa -Hyperlipidemia Lipitor -Quadriparesis from cervical spine injury. -Chronic medical debility -Deep lower back wound, a recent operative site. Surgeon had [facility]. Wound was debrided last week had [facility] [place]. Patient is due to return for closing of stitches. Currently-wound VAC. -No code with instructions Patient Plan - Discharge Summary Discharge Rx Participant: No New Discharge Prescriptions: No Action Docusate Sodium [Dok] 100 mg PO BID@0800,2000 Epoetin Galdino-Epbx [Retacrit] 3,000 units SQ MOWEFR@0800 polyethylene glycoL 3350 [Miralax] 17 gm PO DAILY Famotidine 20 mg PO DAILY methocarbamoL [Methocarbamol] 750 mg PO TID@0500,1300,2100 LORazepam [Ativan] 0.5 mg PO TID@0500,1300,2100 Glycopyrrolate 1 mg PO DAILY Gabapentin [Neurontin] 200 mg PO BID@799,1999 Citalopram Hydrobromide [Citalopram HBr] 40 mg PO DAILY Atorvastatin [Lipitor] 20 mg PO HS Amitriptyline HCl [Elavil] 75 mg PO HS Calcium Acetate [Phoslo] 667 mg PO TID@0500,1300,2099 HYDROcodone/APAP 10-325MG [[place] 10-325] 1 tab PO Q4HR PRN PRN Reason: Pain Lacosamide [Vimpat] 150 mg PO BID@08,1999 Lactulose 20 gm PO TID@0800,1200,1800 Discharge Medication List Amitriptyline HCl [Elavil] 75 mg PO HS 06/04/22 [History] Atorvastatin [Lipitor] 20 mg PO HS 06/04/22 [History] Citalopram Hydrobromide [Citalopram HBr] 40 mg PO DAILY 06/04/22 [History] Docusate Sodium [Dok] 100 mg PO BID@799,199906/04/22 [History] Epoetin Galdino-Epbx [Retacrit] 3,000 units SQ MOWEFR@0800 06/04/22 [History] Famotidine 20 mg PO DAILY 06/04/22 [History] Gabapentin [Neurontin] 200 mg PO BID@799,199906/04/22 [History] Glycopyrrolate 1 mg PO DAILY 06/04/22 [History] LORazepam [Ativan] 0.5 mg PO TID@0500,1300,209906/04/22 [History] methocarbamoL [Methocarbamol] 750 mg PO TID@0500,1300,209906/04/22 [History] polyethylene glycoL 3350 [Miralax] 17 gm PO DAILY 06/04/22 [History] Calcium Acetate [Phoslo] 667 mg PO TID@0500,1300,2100 07/01/22 [History] HYDROcodone/APAP 10-325MG [[place] 10-325] 1 tab PO Q4HR PRN 07/01/22 [History] Lacosamide [Vimpat] 150 mg PO BID@0800,199907/01/22 [History] Lactulose 20 gm PO TID@0800,1200,1800 07/01/22 [History] Follow up Appointment(s)/Referral(s): Daniel Sarabia DO [Primary Care Provider] - 1-2 days
[2022-07-04 18:27] VITALS: PULSE 106; RESP 20
[2022-07-04] MEDS ORDERED: GABAPENTIN 100 MG CAP PO SCH (21:00)
[2022-07-05] MEDS ORDERED: INSULIN DETEMIR (LEVEMIR) 100 UNIT/ML SYR SQ SCH (07:00)
--- NOTE | 2022-07-06 08:14 | CA ---
Transthoracic Echo Report Name: Nathalie Brown Age: 66 Gender: F : 1955 Exam Date: 07/03/2022 14:34 Exam Location: [facility] Ht (in): 69 Wt (lb): 238 Ordering Physician: Jacqueline Rosenbaum MD Attending/Referring Phys: [employer] Instructor Dalia Chahal RDCS Procedure CPT: Indications: R/o infection Cardiac Hx: Attempted Study TDS Technical Quality: Very technically difficult study Contrast 1: Total Dose (mL): Contrast 2: Total Dose (mL): MEASUREMENTS (Male / Female) Normal Values FINDINGS Left Ventricle Unable to Comment of EF. Right Ventricle Right ventricle not well visualized. Right Atrium Right atrium not well visualized. Left Atrium Left atrium not well visualized. Mitral Valve Mitral valve not well visualized. Aortic Valve Aortic valve not well visualized. Tricuspid Valve Tricuspid valve not well visualized. Pulmonic Valve Pulmonic valve not well visualized. Pericardium Aorta CONCLUSIONS Technically difficult and suboptimal study with poor visualization of cardiac structures grossly LV systolic function may be in the normal range Previewed by: Dr. Janey Pennington MD (Electronically Signed) Final Date: 06 July 2022 08:13
== END 2022-07-04 18:55 | disposition expired | DRG 871 ==
LOC: EC 15:19 → 3SCARD 18:59 → 2SICU 07-02 07:11
PROVIDERS: ADMIT Hospitalist; ATTEND Hospitalist
DX: A41.9 Sepsis, unspecified organism (principal); G82.50 Quadriplegia, unspecified; J96.01 Acute respiratory failure with hypoxia; N17.0 Acute kidney failure with tubular necrosis; R65.21 Severe sepsis with septic shock; J18.9 Pneumonia, unspecified organism; I82.413 Acute embolism and thrombosis of femoral vein, bilateral; E87.2 Acidosis; I13.0 Hypertensive heart and chronic kidney disease with heart failure and stage 1 through stage 4 chronic kidney disease, or unspecified chronic kidney disease; T81.31XA Disruption of external operation (surgical) wound, not elsewhere classified, initial encounter; Z43.1 Encounter for attention to gastrostomy; J44.1 Chronic obstructive pulmonary disease with (acute) exacerbation; J44.0 Chronic obstructive pulmonary disease with (acute) lower respiratory infection; T81.41XA Infection following a procedure, superficial incisional surgical site, initial encounter; L98.426 Non-pressure chronic ulcer of back with bone involvement without evidence of necrosis; N39.0 Urinary tract infection, site not specified; M86.9 Osteomyelitis, unspecified; D69.6 Thrombocytopenia, unspecified; L89.152 Pressure ulcer of sacral region, stage 2; L89.512 Pressure ulcer of right ankle, stage 2; E11.22 Type 2 diabetes mellitus with diabetic chronic kidney disease; E11.69 Type 2 diabetes mellitus with other specified complication; N18.30 Chronic kidney disease, stage 3 unspecified; Z66 Do not resuscitate; Z20.822 Contact with and (suspected) exposure to COVID-19; E83.9 Disorder of mineral metabolism, unspecified; I50.9 Heart failure, unspecified; E11.42 Type 2 diabetes mellitus with diabetic polyneuropathy; E11.65 Type 2 diabetes mellitus with hyperglycemia; R13.12 Dysphagia, oropharyngeal phase; G40.909 Epilepsy, unspecified, not intractable, without status epilepticus; B96.5 Pseudomonas (aeruginosa) (mallei) (pseudomallei) as the cause of diseases classified elsewhere; M50.90 Cervical disc disorder, unspecified, unspecified cervical region; E78.5 Hyperlipidemia, unspecified; E86.0 Dehydration; I25.10 Atherosclerotic heart disease of native coronary artery without angina pectoris; K04.7 Periapical abscess without sinus; E83.42 Hypomagnesemia; R19.7 Diarrhea, unspecified; F32.A Depression, unspecified; F41.9 Anxiety disorder, unspecified; M21.379 Foot drop, unspecified foot; Z79.899 Other long term (current) drug therapy; Z86.73 Personal history of transient ischemic attack (TIA), and cerebral infarction without residual deficits; Z86.711 Personal history of pulmonary embolism; Z86.718 Personal history of other venous thrombosis and embolism; Z87.891 Personal history of nicotine dependence; Z87.440 Personal history of urinary (tract) infections; Z74.01 Bed confinement status; Z88.5 Allergy status to narcotic agent; Z88.8 Allergy status to other drugs, medicaments and biological substances
CPT/HCPCS: 36410; 36415; 36573; 71045; 71046; 76770; 76937; 80048; 80053; 81001; 82533; 83605; 83735; 83880; 84100; 84145; 84484; 85025; 85027; 85379; 85610; 85730; 87040; 87077; 87086; 87186; 87502; 87635; 93005; 93306; 93970; 94640; 96361; 96365; 99285